=== PATIENT | female | born 1945 | race Caucasian/White ===

== ENCOUNTER → 2018-08-05 12:28 | Outpatient (CLI) | payer MEDICARE, OTHER, SELFPAY ==
[2018-07-24 14:19] VITALS: BMI 30.6
--- NOTE | 2018-08-05 12:34 | CT_ITS ---
STUDY: CT CHEST WITH CONTRAST REASON FOR EXAM: Female, 73 years old. Follow-up scan for endometrial cancer RADIATION DOSAGE (If Supplied By Facility): CTDIvol = ( 16.43 ) mGy, DLP = ( 1703.23 ) mGycm TECHNIQUE: Transaxial imaging was performed following intravenous administration of 100ml ml of Isovue 300 contrast material. Individualized dose optimization techniques were used for this CT. COMPARISON: Previous study of 03/23/2017 FINDINGS: There is a right-sided Mediport with catheter tip in the region of the atrial caval junction. There is a 2.5 mm nodule of the right lower lobe image 50 of series 6, appearing similar to the previous study. There is a stable pleural-based 4 mm nodule of the left lower lobe image 61 of series 6. There is a pleural-based 9 mm nodule of the left lower lobe image 45 series 6. This is new in the interval. No additional or new nodules are evident. There is a small left-sided effusion, new in the interval. There is a trace pericardial effusion, new in the interval. The heart size is within normal limits. There are scattered nonpathologically enlarged mediastinal nodes. The right thyroid lobe is enlarged and contains low-density nodules. These are similar to the previous study. Normal hilar regions. Normal enhanced pulmonary arteries. Normal aorta arch and descending thoracic aorta. There are numerous sclerotic foci involving the visualized thoracolumbar vertebrae and sternum consistent with extensive osseous metastatic disease, representing a new interval finding from the previous study. There are several subcentimeter exophytic foci of the left kidney most likely representing cysts. CT/Chest WITH Contrast IMPRESSION: 1. Right lower lobe and left lower lobe nodules stable in the interval. There is a new pleural-based 9 mm nodule of the left lower lobe. 2. There is a small left-sided effusion, new in the interval. 3. There is a trace pericardial effusion, also new in the interval. 4. There are numerous sclerotic foci involving the visualized thoracolumbar vertebrae and sternum consistent with extensive osseous metastatic disease, representing a new interval finding. 5. Stable exophytic left renal hypodensities consistent with cysts. Electronically Signed: Niko Nicole MD at 21:32 EST , Service support ,
--- NOTE | 2018-08-05 12:34 | CT_ITS ---
STUDY: CT ABDOMEN AND PELVIS WITHOUT CONTRAST REASON FOR EXAM: Female, 73 years old. Endometrial carcinoma RADIATION DOSAGE (If Supplied By Facility): CTDIvol = ( 16.43 ) mGy, DLP = ( 1703.23 ) mGycm TECHNIQUE: Transaxial images were obtained from the dome of the diaphragm to the symphysis pubis without oral contrast, and without intravenous contrast. Sagittal and coronal images were reconstructed. Individualized dose optimization techniques were used for this CT. COMPARISON: 03/23/2017 FINDINGS: There are chronic interstitial fibrotic changes of the lung bases. Small pleural effusions noted with nonspecific pleural thickening. There is a pericardial effusion Normal liver. Normal gallbladder and extrahepatic biliary system. Normal spleen. Normal pancreas. Normal bilateral adrenal glands. Right kidney has been surgically removed. Stable left renal cysts. Normal visualized stomach. Normal small intestine. There are multiple colonic diverticula consistent with diverticulosis. The appendix is visualized and appears normal. Appendix best seen on coronal recon images 56 through 61. Normal abdominal aorta. Normal inferior vena cava. Normal retroperitoneum. Bladder distends normally, there is a worrisome 1.25 x 1.19 cm nodule in the left posterior bladder. There is also noted within the bladder likely from recent catheterization. There is a small umbilical hernia containing fat. Diffuse degenerative changes noted throughout the lumbar spine and pelvis. However, there is also been development of scattered sclerotic areas within all visualized vertebral bodies as well as throughout the pelvis consistent with diffuse osseous metastasis. CT/Abdomen/Pelvis W IV Cont ONLY IMPRESSION: Development of diffuse osseous metastasis since the previous study. Scattered new sclerotic foci noted throughout the vertebral bodies and throughout the pelvis. Worrisome 1.25 x 1.19 cm nodule in the left posterior bladder, this also could represent metastasis. Pericardial effusion Bilateral pleural effusions with nonspecific pleural thickening Chronic interstitial changes in the lung bases Stable periumbilical hernia Colonic diverticulosis Electronically Signed: Lorenzo Tapia MD at 13:42 EST , Service support ,
== END ==
PROVIDERS: Family Provider Internal Medicine; PCP Internal Medicine; Referring Provider Internal Medicine Medical Oncology; Visit Provider Internal Medicine Medical Oncology
DX: Z85.42 Personal history of malignant neoplasm of other parts of uterus (principal)
CPT/HCPCS: 71260; 74177; Q9967

== ENCOUNTER → 2018-08-13 09:41 | Outpatient (CLI) | payer MEDICARE, OTHER, SELFPAY ==
[2018-08-07 14:37] VITALS: BMI 30.3
--- NOTE | 2018-08-13 09:46 | NM_ITS ---
CLINICAL: 73-year-old female with reported history of endometrial carcinoma. WHOLE BODY 99m Tc MDP RADIONUCLIDE BONE SCINTIGRAPHY COMPARISON: CT of the chest, abdomen and pelvis reports 08/05/2018 FINDINGS: Following the intravenous administration of 25.8 mCi of 99m Tc MDP, whole body bone images reveal: 1. Heterogeneous multifocal increased radiopharmaceutical concentration is disseminated throughout the appendicular and axial skeletal structures, too many to individually articulate to include multiple bilateral ribs, thoracic and lumbar vertebra, the bilateral hemipelvis, the left femoral head, the right and left proximal-distal humeral and femoral diaphyses. 2. Facilitated uptake is otherwise noted in the patellofemoral compartments of both knees, bilateral ankles, the right-left midfoot, right forefoot, elbows bilaterally and sternoclavicular compartments of both shoulders. 3. The remaining skeletal structures are scintigraphically unremarkable with left renal image and urinary bladder activity identified. NM/Bone Scan Whole Body IMPRESSION: 1. The multiple foci of increased radiopharmaceutical concentration defined in the appendicular and axial skeletal structures is commensurate with osteoblastic turnover attributed to skeletal metastatic disease. 2. Degenerative arthritis is otherwise noted in the bilateral knee and ankle articulations, midfoot bilaterally, right forefoot, bilateral shoulders and elbows. Electronically Signed: Handy Collier DO at 23:25 EST Tel , Service support ,
--- OUTSIDE RECORDS SUMMARY | 2018-10-15 11:17 | XMS RPT_ITS ---
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 Result Comment: The drugs N-Acetylcysteine and Metamizole may falsely depress this assay. Serum Triglycerides Reference Interval Normal <150 mg/dL Borderline high 150 - 199 mg/dL High 200 - 499 mg/dL Very High > or = 500 mg/dL LAB L501.6400 mg/dL Low HDL 33 Result Comment: The drugs N-Acetylcysteine and Metamizole may falsely depress this assay. Reference Range HDL <40 mg/dL Low HDL Cholesterol HDL >or= 60 mg/dL High HDL Cholesterol LAB L501.6500 0-130 mg/dL Normal LDL 104 LAB L501.6600 5-40 mg/dL Normal VLDL 40 Performed By: #### L500.4100 #### [facility] [place], [address] CBC W/DIFF, AUTOMATED Collected: 04/10/2018 Status: F Source: [place] 1:58 PM [facility] REPOSITORY Order Comment: Reason for Laboratory Test . TYPE CODE TESTS RESULT OUT OF RANGE REFERENCE UNITS LAB L100.1000 4.4-11.0 K/mm3 Normal WBC 7.6 LAB L100.1200 4.2-5.4 M/mm3 Low RBC 4.10 LAB L100.1300 12.0-15.0 g/dl Low HGB 11.4 LAB L100.1400 37-47 % Low HCT 36.2 LAB L100.1500 81-99 fL Normal MCV 88.3 LAB L100.1600 27.0-32.0 pg Normal MCH 27.8 LAB L100.1700 32-36 g/gl Low MCHC 31.5 LAB L100.1810 11.6-14.6 % High RDW CV 14.8 LAB L100.1820 35.1-43.9 fl High RDW SD 48.0 LAB L100.1900 150-450 K/mm3 Normal PLT 216 LAB L100.2000 6.2-12.0 fl Normal MPV 11.0 LAB L100.2100 47-70 % High NEUT% 71.9 LAB L100.2200 19-41 % Low LY% 15.0 LAB L100.2300 0-10 % Normal MONO% 9.6 LAB L100.2400 0-5 % Normal EO% 3.3 LAB L100.2500 0-1 % Normal BASO% 0.1 LAB L100.2550 0.0-0.9 % Normal IM GRAN % 0.100 Result Comment: IG% - Immature Granulocytes (promyelocytes, myelocytes and metamyelocytes) > 1% indicates that a LEFT SHIFT is Present. LAB L100.2620 2.0-7.7 X10 3/uL Normal Absolute Neut 5.4 LAB L100.2720 0.83-4.51 X10 3/ul Normal Absolute Lymph 1.14 Performed By: #### L100.0100 #### [facility] [address] [facility]. [place], [place], [id number] #### L3100.5000 #### [facility] (refer to report for specific site) refer to report for address and phone number CANCER ANTIGEN 125 Collected: 04/10/2018 Status: F Source: [place] 1:58 PM [facility] REPOSITORY Order Comment: Reason for Laboratory Test . TYPE CODE TESTS RESULT OUT OF RANGE REFERENCE UNITS LAB L3100.5000 0.0-38.1 U/mL Normal CA125 37.4 2303 Result Comment: [employer] ECLIA methodology Performed at: [facility] [id number] Farm Appraiser: Toney Conway PhD, Phone: [phone] Performed By: #### L100.0100 #### [facility] [address] [facility] [place], [place], [id number] #### L3100.5000 #### [facility] (refer to report for specific site) refer to report for address and phone number COMPREHENSIVE METABOLIC Collected: 04/10/2018 Status: F Source: [facility] 1:58 PM [facility] REPOSITORY Order Comment: Reason for Laboratory Test . TYPE CODE TESTS RESULT OUT OF RANGE REFERENCE UNITS LAB L501.0100 74-106 mg/dL Normal GLU 85 Result Comment: Please note revised GLUCOSE reference range effective 2017. LAB L501.1000 7-18 mg/dL High BUN 19 LAB L501.1100 0.55-1.02 mg/dL High CREAT,SERUM 1.04 Result Comment: The validity of the calculated GFR AND GFRAA in patients over 70 years has not been determined. Clinical correlation is essential. LAB L501.1110 >60 mL/min Low EST GFR 55 Result Comment: Non- GFR Calc LAB L501.1115 >60 mL/min Normal EST GFR - AA 66 Result Comment: GFR Calc LAB L501.1255 ml/min Normal Estimated CRCL 36.97 LAB L501.1300 10-20 RATIO Normal BUN/CRE 18.3 LAB L501.1500 6.4-8. g/dL Normal 2 T PROT 7.0 LAB L501.1800 3.2-5. g/dL Normal 0 ALB 3.7 LAB L501.1950 2.2-4. g/dL Normal 2 GLOB 3.3 LAB L501.2000 0.9-2. RATIO Normal 4 A/G 1.1 LAB L501.2200 8.5-10 mg/dL Normal .1 CA 8.6 LAB L501.4100 15-37 U/L Low AST 14 LAB L501.4305 45-117 U/L Normal ALK P 71 LAB L501.4405 13-56 U/L Normal ALT 19 LAB L501.4600 0.20-1 mg/dL Normal .00 T BILI 0.70 LAB L501.5300 136-14 mmol/L Normal 5 NA 139 LAB L501.5600 3.5-5. mmol/L Normal 1 K 3.8 LAB L501.5900 98-107 mmol/L Normal CL 104 LAB L501.6100 21.0-3 mmol/L Normal 2.0 CO2 25.0 LAB L501.6200 5-15 Normal GAP 10 Performed By: #### L500.4050 #### [facility] [address] [place], [address] PROGRESS Observed: 02/25/2018 Status: COMPLETED Source: [place] 4:51 PM [facility] REPOSITORY HNO ID: [id number] Author: Anderson Wilson Service: (none) Author Type: Physician Type: Progress Notes Filed: 02/25/2018 4:53 PM Note Text: Unfortunately it has been extremely difficult convincing this patient that even her past home readings have been above goal. Will review her home readings when I return to the office, however, I still strongly encourage her to reconsider taking the medications as ordered. PROGRESS Observed: 02/25/2018 Status: COMPLETED Source: [place] 10:47 AM [facility] REPOSITORY HNO ID: [id number] Author: Lee Mckeon Service: (none) Author Type: Certified Cytotechnologist Type: Progress Notes Filed: 02/25/2018 11:03 AM Note Text: Patient here for BP check. Last BP 158/90 at 01/28/18 office visit. At that time Dr. Wilson started patient on Norvasc 2.5 mg tablet daily to take in addition to her HCTZ 25 mg. Patient states she never started the Norvasc 2.5 mg because she did not like the side effects she read. Patient's BP today 148/96, advised patient she would need so sit for 10 minutes and it would be rechecked. Patient states she is happy with that BP and states it won't go lower because she is nervous. Recheck after 10 minutes BP was 158/90, requested patient schedule NV for 2 week BP check as it is still above goal and patient refused stating she gets sick every time she has to come to the doctor and she does not want to keep coming for BP checks. Home BP readings placed on Dr. Wilson's desk for review. Lee Mckeon CMA CNNURSE Observed: 02/25/2018 Status: COMPLETED Source: [place] 10:40 AM [facility] REPOSITORY Nurse Visit (AGINTMLW) KYLAH WILCOX ([id number]) 1945 F Date Time Provider Department 02/25/18 10:40 AM NURSE SHARON KILPATRICK AGINTMLW During your visit today, we recorded the following information about you: Pulse Blood pressure 99/minute 158/90 Lee Mckeon CMA 02/25/2018 11:03 AM Signed Patient here for BP check. Last BP 158/90 at 01/28/18 office visit. At that time Dr. Wilson started patient on Norvasc 2.5 mg tablet daily to take in addition to her HCTZ 25 mg. Patient states she never started the Norvasc 2.5 mg because she did not like the side effects she read. Patient's BP today 148/96, advised patient she would need so sit for 10 minutes and it would be rechecked. Patient states she is happy with that BP and states it won't go lower because she is nervous. Recheck after 10 minutes BP was 158/90, requested patient schedule NV for 2 week BP check as it is still above goal and patient refused stating she gets sick every time she has to come to the doctor and she does not want to keep coming for BP checks. Home BP readings placed on Dr. Wilson's desk for review. Lee Mckeon CMA Referring Provider: SELF [200] Allergies As of Date: 02/25/2018 Noted Allergy Reaction DIPHENHYDRAMINE 12/15/2016 14 - Other: See Comments Comments: Dizziness NOVACAINE (PROCAINE) 04/25/2016 10 - Anaphylaxis 14 - Other: See Comments Date Reviewed: 01/28/2018 Reviewed by: Anderson Wilson - Fully Assessed Reason for Visit: Blood Pressure Check [195] Primary Visit Diagnosis:Essential hypertension [I10] Prescriptions as of 02/25/2018 Sig: HYDROCHLOROTHIAZIDE 25 MG TAB* TAKE 1 TABLET BY MOUTH DAILY ERYTHROMYCIN 5 MG/GRAM (0.5 %* PREDNISOLONE ACETATE 1 % EYE * ACYCLOVIR 800 MG TABLET AMLODIPINE 2.5 MG TABLET Take 1 tablet by mouth once d* OTC PRODUCT Calm plus sl COENZYME Q10 100 MG CAPSULE Take 100 mg by mouth once raven* GARLIC 100 MG TABLET Take by mouth. GRAPE SEED EXTRACT 25 MG CAPS* Take by mouth. OTC PRODUCT L-Theanine VITAMIN B COMPLEX-100 ORAL Take by mouth. CHOLECALCIFEROL (VITAMIN D3) * Take by mouth. FLAXSEED OIL Problem List As Of Date 02/25/2018 Noted Resolved Obesity, Class I, BMI 30-34.9 [E66.9] INVALID FOR* Essential hypertension [I10] INVALID FOR* Level of Service: EST PATIENT VISIT LEVEL 1 [24267] LOS history recorded Follow-up and Disposition History Recorded Encounter Status:Closed by LEE MCKEON on 02/25/18 COMPREHENSIVE PANEL Collected: 02/21/2018 Status: F Source: [facility] 11:06 AM [facility] REPOSITORY TYPE CODE TESTS RESULT OUT OF REFERENCE UNITS RANGE LAB DATA SERVICES DEVELOPER(LOINC) 136-145 mEq/L Low Sodium Blood 132 LAB LK(LOINC) 3.5-5.1 mEq/L Low Potassium Blood 3.2 LAB LCL(LOINC) 98-107 mEq/L Chloride Blood 100 LAB LCO2(LOINC 21-32 mEq/L ) CO2 Blood 31 LAB LGLU(LOINC 70-99 mg/dL ) Glucose High Blood 105 LAB LBUN(LOINC 7-25 mg/dL ) BUN Blood 19 LAB LCREA(LOIN 0.51-0.95 mg/dL C) Creatinine High Blood 1.07 LAB LCA(LOINC) 8.5-10.1 mg/dL Calcium Blood 9.3 LAB LALB(LOINC 3.4-5.0 g/dL ) Albumin Blood 3.7 LAB LTP(LOINC) 6.4-8.2 g/dL Total Protein 7.2 LAB LAST(LOINC 15-37 U/L ) AST-SGOT Blood 20 LAB LALT(LOINC 14-63 U/L ) ALT-SGPT Blood 28 LAB LALKP(LOIN 46-116 U/L C) Alk Phosphatase 73 LAB LBILT(LOIN 0.2-1.0 mg/dL C) Total Bilirubin 0.7 LAB LANGP(LOIN 8-20 C) Low Anion Gap 4 LAB LBNCR(LOIN 10-20 C) BUN/Creatinine 18 Ratio Performed By: #### LP14 #### [place] [address] MDRD EGFR Collected: 02/21/2018 Status: F Source: [facility] 11:06 AM [facility] REPOSITORY TYPE CODE TESTS RESULT OUT OF RANGE REFERENCE UNITS LAB LGFRF(LOINC >60mL/min/1.73m ) 2 eGFR 53.13 Result Comment: If the patient is , multiply the result by 1.210. Performed By: #### LGFR #### [facility] [address] [place] [address] OBSOLETE Observed: 02/21/2018 Status: COMPLETED Source: [place] 12:00 AM [facility] REPOSITORY Refill (AGINTMLW) KYLAH WILCOX ([id number]) 1945 F Date Time Provider Department 02/21/18 ANDERSON WILSON AGINTMLW During your visit today, we recorded the following information about you: Aisha Walsh, MOTORBOAT MECHANIC HELPER 02/21/2018 9:56 AM Signed Called pt let her know that she needs to get her lab work done she stated that shes going to get that done Last OV 01/28/18 Pharmacy calls in requesting the following refill(s): Pending Prescriptions Disp Refills HYDROCHLOROTHIAZIDE 25 MG TABLET 30 tablet 1 Sig: TAKE 1 TABLET BY MOUTH DAILY BABAK: Yes Aisha Walsh CMA Allergies As of Date: 02/21/2018 Noted Allergy Reaction DIPHENHYDRAMINE 12/15/2016 14 - Other: See Comments Comments: Dizziness NOVACAINE (PROCAINE) 04/25/2016 10 - Anaphylaxis 14 - Other: See Comments Date Reviewed: 01/28/2018 Reviewed by: Anderson Wilson - Fully Assessed Reason for Visit: Refill Request [94] Visit Diagnosis:Essential hypertension [I10] Order(s):hydroCHLOROthiazide (HYDRODIURIL, ESIDRIX) 25 mg tabletTAKE 1 TABLET BY MOUTH DAILYDisp: 30 tabletRfl: 1 Prescriptions as of 02/21/2018 Sig: HYDROCHLOROTHIAZIDE 25 MG TAB* TAKE 1 TABLET BY MOUTH DAILY ERYTHROMYCIN 5 MG/GRAM (0.5 %* PREDNISOLONE ACETATE 1 % EYE * ACYCLOVIR 800 MG TABLET AMLODIPINE 2.5 MG TABLET Take 1 tablet by mouth once d* OTC PRODUCT Calm plus sl COENZYME Q10 100 MG CAPSULE Take 100 mg by mouth once raven* GARLIC 100 MG TABLET Take by mouth. GRAPE SEED EXTRACT 25 MG CAPS* Take by mouth. OTC PRODUCT L-Theanine VITAMIN B COMPLEX-100 ORAL Take by mouth. CHOLECALCIFEROL (VITAMIN D3) * Take by mouth. FLAXSEED OIL Problem List As Of Date 02/21/2018 Noted Resolved Obesity, Class I, BMI 30-34.9 [E66.9] INVALID FOR* Essential hypertension [I10] INVALID FOR* Prescriptions ordered this encounter Disp Refills Start End HYDROCHLOROTHIAZIDE 25 MG TABLET 30 t* 1 02/21/2018 Sig: TAKE 1 TABLET BY MOUTH DAILY Medications Discontinued During This Encounter hydroCHLOROthiazide (HYDRODIURIL, ES* 30 t* 1 12/24/2017 02/21/2018 Route: ORAL Sig: Take 1 tablet by mouth once daily. Disc: Reason for discontinue is not on file. Encounter Status:Closed by ANDERSON WILSON MD on 02/21/18 PROGRESS Observed: 01/28/2018 Status: COMPLETED Source: [place] 10:20 AM [facility] REPOSITORY O ID: [id number] Author: Anderson Wilson Service: (none) Author Type: Physician Type: Progress Notes Filed: 01/28/2018 12:10 PM Note Text: Subjective The patient is here for a follow up for her blood pressure. The patient reports she watches her diet and doesn't add salt to her diet. The patient reports she walks on a treadmill and uses a stationary bike. The patient checks her blood pressure 2-3 times a day and has provided her home readings for review. She has her home cuff with her to compare her readings. She reports just putting the blood pressure cuff on makes her blood pressure go up. The patient is just taking her HCTZ. She did not start taking the lisinopril as previously ordered stating she sometimes has readings in the 120/70 range. She does not want to take any medication that has side effects and doesn't feel as though she needs any medications. The patient reports that she read that lowering her blood pressure has no effect on the risk of stroke or heart disease so she doesn't see why she needs to take anything. The history is provided by the patient. Hypertension This is a chronic problem. The current episode started more than 1 year ago. The problem is uncontrolled. Associated symptoms include blurred vision (in left eye) and palpitations (occasional). Pertinent negatives include no chest pain, headaches or shortness of breath. Risk factors for coronary artery disease include obesity and post-menopausal state. Past treatments include diuretics. The current treatment provides mild improvement. Compliance problems include medication side effects. There is no history of CAD/AZ or CVA. There is no history of a thyroid problem. ALLERGIES Allergen Reactions - Diphenhydramine Other: See Comments Dizziness - Novacaine [Procaine] Anaphylaxis, Other: See Comments Current Outpatient Prescriptions: OTC PRODUCT Calm plus sl Disp: Rfl: coenzyme Q10 (COENZYME Q-10) 100 mg cap capsule Take 100 mg by mouth once daily. Disp: Rfl: Garlic 100 mg tab Take by mouth. Disp: Rfl: Grape Seed Extract (GRAPE SEED) 25 mg cap Take by mouth. Disp: Rfl: OTC PRODUCT L-Theanine Disp: Rfl: VITAMIN B COMPLEX-100 ORAL Take by mouth. Disp: Rfl: Cholecalciferol, Vitamin D3, (VITAMIN D-3) 2,000 unit cap Take by mouth. Disp: Rfl: Flaxseed Oil oil Disp: Rfl: hydroCHLOROthiazide (HYDRODIURIL, ESIDRIX) 25 mg tablet Take 1 tablet by mouth once daily. Disp: 30 tablet Rfl: 1 erythromycin ophthalmic ointment Disp: Rfl: prednisoLONE acetate (PRED FORTE, ECONOPRED PLUS) 1 % ophthalmic suspension Disp: Rfl: acyclovir (ZOVIRAX) 800 mg tablet Disp: Rfl: zoster vaccine, recombinant, adjuvanted, (SHINGRIX) 50 mcg/0.5 mL injection Inject 0.5 mL intramuscularly one time only for 1 dose. Disp: 0.5 mL Rfl: 0 amLODIPine (NORVASC) 2.5 mg tablet Take 1 tablet by mouth once daily. Disp: 30 tablet Rfl: 1 No current facility-administered medications for this visit. 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 Family History Problem Relation Age of Onset - Cancer Mother leukemia - Hypertension Mother - Cancer Sister uterine - Cancer Maternal Aunt colon Reviewed past medical and surgical history. BP 158/90 Temp 36.4 ?C (97.6 ?F) (Oral) Resp 18 Ht 154.9 cm (5' 1) Wt 74.8 kg (165 lb) SpO2 92% BMI 31.18 kg/m? Review of Systems Constitutional: Negative for fever and weight loss. 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 Negative for congestion and sore throat. Eyes: Positive for blurred vision (in left eye). Respiratory: Negative for cough and shortness of breath. Cardiovascular: Positive for palpitations (occasional). Negative for chest pain and leg swelling. Gastrointestinal: Negative for abdominal pain, constipation, diarrhea, nausea and vomiting. Genitourinary: Negative for dysuria. Musculoskeletal: Negative for falls. Skin: Negative for rash. Neurological: Positive for tingling (in fingers and feet, from chemotherapy). Negative for dizziness, loss of consciousness, weakness and headaches. Psychiatric/Behavioral: Positive for depression. Negative for suicidal ideas. The patient is nervous/anxious. Objective Physical Exam Constitutional: She is oriented to person, place, and time and well-developed, well-nourished, and in no distress. Vital signs are normal. She does not have a sickly appearance. No distress. HENT: Head: Normocephalic and atraumatic. Mouth/Throat: Oropharynx is clear and moist and mucous membranes are normal. Eyes: Conjunctivae are normal. Pupils are equal, round, and reactive to light. Cardiovascular: Normal rate, regular rhythm and normal heart sounds. No murmur heard. Pulmonary/Chest: Effort normal and breath sounds normal. No respiratory distress. She has no wheezes. Abdominal: Soft. Bowel sounds are normal. There is no tenderness. Musculoskeletal: She exhibits no edema. Neurological: She is alert and oriented to person, place, and time. Skin: Skin is warm and dry. No rash noted. She is not diaphoretic. Psychiatric: Mood normal. Tearful at times speaking of her mother's past medical complications Nursing note and vitals reviewed. ASSESSMENT/PLAN: 1. Essential hypertension - ICD9: 401.9, ICD10: I10 (primary diagnosis) - poor control - Continue current medication(s) - Add amlodipine (Norvasc) - Encouraged dietary sodium restriction/DASH diet - Recommended regular aerobic exercise. - Recommend home blood pressure monitoring, to bring results in on next visit - Follow up in 1 month for BP recheck. - Goal of BP <130/80 - AMLODIPINE 2.5 MG TABLET Reviewed the patient's home readings. They are completely variable with readings from 119/70 and other readings at 159/93. Her average readings, however, appear to be in the high 130-140/70-80 range. Her home cuff appears to be reading slightly higher, but similar. Her blood pressure did improve with recheck, but remains above goal. Discussed extensively with the patient that her goal blood pressure is <130/90 and although her home readings are improved, she is still having some above normal readings. Previously ordered the patient lisinopril, but she is unwilling to take it stating she has concerns about it affecting her kidney. Due to her concern with using lisinopril, will start her on a small dose of norvasc instead. Explained that although better blood pressure control doesn't rule out the possibility of heart disease or stroke, it does lessen the risk. Explained that I cannot force her to take any medication, however, this was my recommendation and she voiced understanding. The patient was encouraged to continue monitoring her blood pressure at home and to call if she had any problems with the new medication and she voiced understanding. The patient inquired about weight loss to help with her blood pressure. I explained that weight loss would be great and if she does lose weight, we may be able to consider coming off one or both medications, however, until then, I would recommend taking the medications as prescribed. I explained that there are no medications that do not have any side effects at all, but side effects are variable with each person. She was again instructed to call if she had any problems with the new medication and she agreed. 2. Screening for cardiovascular condition - ICD9: V81.2, ICD10: Z13.6 Patient due for a lipid panel which I will order. She reports she had other labs done recently by her blacking wheel tender. Will get those records for review. - LIPID PANEL BASIC 3. Immunization due - ICD9: V05.9, ICD10: Z23 - VARICELLA-ZOSTER GLYCOE VACC-AS01B ADJ(PF) 50 MCG/0.5 ML IM SUSP, KIT Provided the patient a prescription for the shingles vaccine which she will complete after her current shingles in her eye is resolved. Patient is seeing ophthalmology and follows up with them on . The patient is here for a follow up. She had multiple questions and concerns related to her blood pressure. While I do agree that some of her blood pressure appears to be related to white coat hypertension, it still appears to be higher than goal at home. Plan as above. The patient had concerns about her and I recommended that he call or schedule an appointment to discuss them himself since this was an appointment for her. She voiced understanding. Will have the patient return in 4 weeks for a nursing blood pressure check. The patient also appears to have some problems with anxiety. Will schedule her a follow up with me to discuss this further. Return in about 4 weeks (around 02/25/2018) for nursing BP check. Anderson Wilson MD CNOV Observed: 01/28/2018 Status: COMPLETED Source: [place] [address]:00 AM [facility] REPOSITORY Office Visit (AGINTMLW) KYLAH WILCOX ([id number]) 1945 F Date Time Provider Department 01/28/18 10:00 AM ANDERSON WILSON AGINTMLW During your visit today, we recorded the following information about you: Temperature Respiration Blood pressure Weight 97.6 degrees 18/minute 158/90 74.8 kg Height 1.549 m Anderson Wilson MD 01/28/2018 12:10 PM Signed Subjective The patient is here for a follow up for her blood pressure. The patient reports she watches her diet and doesn't add salt to her diet. The patient reports she walks on a treadmill and uses a stationary bike. The patient checks her blood pressure 2-3 times a day and has provided her home readings for review. She has her home cuff with her to compare her readings. She reports just putting the blood pressure cuff on makes her blood pressure go up. The patient is just taking her HCTZ. She did not start taking the lisinopril as previously ordered stating she sometimes has readings in the 120/70 range. She does not want to take any medication that has side effects and doesn't feel as though she needs any medications. The patient reports that she read that lowering her blood pressure has no effect on the risk of stroke or heart disease so she doesn't see why she needs to take anything. The history is provided by the patient. Hypertension This is a chronic problem. The current episode started more than 1 year ago. The problem is uncontrolled. Associated symptoms include blurred vision (in left eye) and palpitations (occasional). Pertinent negatives include no chest pain, headaches or shortness of breath. Risk factors for coronary artery disease include obesity and post-menopausal state. Past treatments include diuretics. The current treatment provides mild improvement. Compliance problems include medication side effects. There is no history of CAD/AZ or CVA. There is no history of a thyroid problem. ALLERGIES Allergen Reactions - Diphenhydramine Other: See Comments Dizziness - Novacaine [Procaine] Anaphylaxis, Other: See Comments Current Outpatient Prescriptions: OTC PRODUCT Calm plus sl Disp: Rfl: coenzyme Q10 (COENZYME Q-10) 100 mg cap capsule Take 100 mg by mouth once daily. Disp: Rfl: Garlic 100 mg tab Take by mouth. Disp: Rfl: Grape Seed Extract (GRAPE SEED) 25 mg cap Take by mouth. Disp: Rfl: OTC PRODUCT L-Theanine Disp: Rfl: VITAMIN B COMPLEX-100 ORAL Take by mouth. Disp: Rfl: Cholecalciferol, Vitamin D3, (VITAMIN D-3) 2,000 unit cap Take by mouth. Disp: Rfl: Flaxseed Oil oil Disp: Rfl: hydroCHLOROthiazide (HYDRODIURIL, ESIDRIX) 25 mg tablet Take 1 tablet by mouth once daily. Disp: 30 tablet Rfl: 1 erythromycin ophthalmic ointment Disp: Rfl: prednisoLONE acetate (PRED FORTE, ECONOPRED PLUS) 1 % ophthalmic suspension Disp: Rfl: acyclovir (ZOVIRAX) 800 mg tablet Disp: Rfl: zoster vaccine, recombinant, adjuvanted, (SHINGRIX) 50 mcg/0.5 mL injection Inject 0.5 mL intramuscularly one time only for 1 dose. Disp: 0.5 mL Rfl: 0 amLODIPine (NORVASC) 2.5 mg tablet Take 1 tablet by mouth once daily. Disp: 30 tablet Rfl: 1 No current facility-administered medications for this visit. 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 Family History Problem Relation Age of Onset - Cancer Mother leukemia - Hypertension Mother - Cancer Sister uterine - Cancer Maternal Aunt colon Reviewed past medical and surgical history. BP 158/90 Temp 36.4 ?C (97.6 ?F) (Oral) Resp 18 Ht 154.9 cm (5' 1) Wt 74.8 kg (165 lb) SpO2 92% BMI 31.18 kg/m? Review of Systems Constitutional: Negative for fever and weight loss. 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 Negative for congestion and sore throat. Eyes: Positive for blurred vision (in left eye). Respiratory: Negative for cough and shortness of breath. Cardiovascular: Positive for palpitations (occasional). Negative for chest pain and leg swelling. Gastrointestinal: Negative for abdominal pain, constipation, diarrhea, nausea and vomiting. Genitourinary: Negative for dysuria. Musculoskeletal: Negative for falls. Skin: Negative for rash. Neurological: Positive for tingling (in fingers and feet, from chemotherapy). Negative for dizziness, loss of consciousness, weakness and headaches. Psychiatric/Behavioral: Positive for depression. Negative for suicidal ideas. The patient is nervous/anxious. Objective Physical Exam Constitutional: She is oriented to person, place, and time and well-developed, well-nourished, and in no distress. Vital signs are normal. She does not have a sickly appearance. No distress. HENT: Head: Normocephalic and atraumatic. Mouth/Throat: Oropharynx is clear and moist and mucous membranes are normal. Eyes: Conjunctivae are normal. Pupils are equal, round, and reactive to light. Cardiovascular: Normal rate, regular rhythm and normal heart sounds. No murmur heard. Pulmonary/Chest: Effort normal and breath sounds normal. No respiratory distress. She has no wheezes. Abdominal: Soft. Bowel sounds are normal. There is no tenderness. Musculoskeletal: She exhibits no edema. Neurological: She is alert and oriented to person, place, and time. Skin: Skin is warm and dry. No rash noted. She is not diaphoretic. Psychiatric: Mood normal. Tearful at times speaking of her mother's past medical complications Nursing note and vitals reviewed. ASSESSMENT/PLAN: 1. Essential hypertension - ICD9: 401.9, ICD10: I10 (primary diagnosis) - poor control - Continue current medication(s) - Add amlodipine (Norvasc) - Encouraged dietary sodium restriction/DASH diet - Recommended regular aerobic exercise. - Recommend home blood pressure monitoring, to bring results in on next visit - Follow up in 1 month for BP recheck. - Goal of BP <130/80 - AMLODIPINE 2.5 MG TABLET Reviewed the patient's home readings. They are completely variable with readings from 119/70 and other readings at 159/93. Her average readings, however, appear to be in the high 130-140/70-80 range. Her home cuff appears to be reading slightly higher, but similar. Her blood pressure did improve with recheck, but remains above goal. Discussed extensively with the patient that her goal blood pressure is <130/90 and although her home readings are improved, she is still having some above normal readings. Previously ordered the patient lisinopril, but she is unwilling to take it stating she has concerns about it affecting her kidney. Due to her concern with using lisinopril, will start her on a small dose of norvasc instead. Explained that although better blood pressure control doesn't rule out the possibility of heart disease or stroke, it does lessen the risk. Explained that I cannot force her to take any medication, however, this was my recommendation and she voiced understanding. The patient was encouraged to continue monitoring her blood pressure at home and to call if she had any problems with the new medication and she voiced understanding. The patient inquired about weight loss to help with her blood pressure. I explained that weight loss would be great and if she does lose weight, we may be able to consider coming off one or both medications, however, until then, I would recommend taking the medications as prescribed. I explained that there are no medications that do not have any side effects at all, but side effects are variable with each person. She was again instructed to call if she had any problems with the new medication and she agreed. 2. Screening for cardiovascular condition - ICD9: V81.2, ICD10: Z13.6 Patient due for a lipid panel which I will order. She reports she had other labs done recently by her blacking wheel tender. Will get those records for review. - LIPID PANEL BASIC 3. Immunization due - ICD9: V05.9, ICD10: Z23 - VARICELLA-ZOSTER GLYCOE VACC-AS01B ADJ(PF) 50 MCG/0.5 ML IM SUSP, KIT Provided the patient a prescription for the shingles vaccine which she will complete after her current shingles in her eye is resolved. Patient is seeing ophthalmology and follows up with them on . The patient is here for a follow up. She had multiple questions and concerns related to her blood pressure. While I do agree that some of her blood pressure appears to be related to white coat hypertension, it still appears to be higher than goal at home. Plan as above. The patient had concerns about her and I recommended that he call or schedule an appointment to discuss them himself since this was an appointment for her. She voiced understanding. Will have the patient return in 4 weeks for a nursing blood pressure check. The patient also appears to have some problems with anxiety. Will schedule her a follow up with me to discuss this further. Return in about 4 weeks (around 02/25/2018) for nursing BP check. MD Anderson Platt MD 01/28/2018 10:55 AM Signed Continue to monitor blood pressure at home. Call with any concerns or questions about new medication. Goal blood pressure is <130/90. Referring Provider: ANDERSON WILSON [[id number]] Allergies As of Date: 01/28/2018 Noted Allergy Reaction DIPHENHYDRAMINE 12/15/2016 14 - Other: See Comments Comments: Dizziness NOVACAINE (PROCAINE) 04/25/2016 10 - Anaphylaxis 14 - Other: See Comments Date Reviewed: 01/28/2018 Reviewed by: Anderson Wilson - Fully Assessed Reason for Visit: Hypertension [168] Primary Visit Diagnosis:Essential hypertension [I10] Other Visit Diagnoses:Screening for cardiovascular condition [Z13.6] Immunization due [Z23] Order(s):zoster vaccine, recombinant, adjuvanted, (SHINGRIX) 50 mcg/0.5 mL injectionInject 0.5 mL intramuscularly one time only for 1 dose.Disp: 0.5 mLRfl: 0 LIPID PANEL BASIC [SQLIPB] Order #: [id number] FUTURE amLODIPine (NORVASC) 2.5 mg tabletTake 1 tablet by mouth once daily.Disp: 30 tabletRfl: 1 Prescriptions as of 01/28/2018 Sig: OTC PRODUCT Calm plus sl COENZYME Q10 100 MG CAPSULE Take 100 mg by mouth once raven* GARLIC 100 MG TABLET Take by mouth. GRAPE SEED EXTRACT 25 MG CAPS* Take by mouth. OTC PRODUCT L-Theanine VITAMIN B COMPLEX-100 ORAL Take by mouth. CHOLECALCIFEROL (VITAMIN D3) * Take by mouth. FLAXSEED OIL HYDROCHLOROTHIAZIDE 25 MG TAB* Take 1 tablet by mouth once d* ERYTHROMYCIN 5 MG/GRAM (0.5 %* PREDNISOLONE ACETATE 1 % EYE * ACYCLOVIR 800 MG TABLET VARICELLA-ZOSTER GLYCOE VACC-* Inject 0.5 mL intramuscularly* AMLODIPINE 2.5 MG TABLET Take 1 tablet by mouth once d* Problem List As Of Date 01/28/2018 Noted Resolved Obesity, Class I, BMI 30-34.9 [E66.9] INVALID FOR* Essential hypertension [I10] INVALID FOR* Other instructions from your clinician: Continue to monitor blood pressure at home. Call with any concerns or questions about new medication. Goal blood pressure is <130/90. Prescriptions ordered this encounter Disp Refills Start End VARICELLA-ZOSTER GLYCOE VACC-AS01B A* 0.5 * 0 01/28/2018 01/28/2018 Class: Print RX Route: INTRAMUSCULA Sig: Inject 0.5 mL intramuscularly one time only for 1 dose. AMLODIPINE 2.5 MG TABLET 30 t* 1 01/28/2018 Route: ORAL Sig: Take 1 tablet by mouth once daily. Medications Discontinued During This Encounter lisinopril (ZESTRIL, PRINIVIL) 5 mg * 30 t* 1 01/07/2018 01/28/2018 Route: ORAL Sig: Take 1 tablet by mouth once daily. Disc: Changing Therapy/Dosage Form Level of Service: [facility] PATIENT VISIT LEVEL 4 [[id number]] Disposition: Return in about 4 weeks (around 02/25/2018) for nursing BP check. Follow-up and Disposition History Recorded Encounter Status:Closed by ANDERSON WILSON MD on 01/28/18 PROGRESS Observed: 01/07/2018 Status: COMPLETED Source: [place] 2:38 PM [facility] REPOSITORY HNO ID: [id number] Author: Lee Mckeon Service: (none) Author Type: Certified Cytotechnologist Type: Progress Notes Filed: 01/07/2018 2:39 PM Note Text: Left message informing patient of Dr. Wilson's directions to not start the Lisinopril and to continue monitoring BP at home and bring readings and BP cuff to 01/28/18 office visit to review. Lee Mckeon CMA PROGRESS Observed: 01/07/2018 Status: COMPLETED Source: [place] 1:55 PM [facility] REPOSITORY HNO ID: [id number] Author: Anderson Wilson Service: (none) Author Type: Physician Type: Progress Notes Filed: 01/07/2018 1:56 PM Note Text: I agree that a reading of 127/77 is a good reading, however, I need to confirm that her cuff reads the same as our readings. I would like her to return in 2-3 weeks with her cuff for a repeat check. Have her continue to monitor her blood pressure for now and bring her readings in at that time. For now, will hold off on lisinopril. Thanks. PROGRESS Observed: 01/07/2018 Status: COMPLETED Source: [place] 1:07 PM [facility] REPOSITORY HNO ID: [id number] [facility]: [facility] [place] Service: (none) Author Type: Certified Cytotechnologist Type: Progress Notes Filed: 01/07/2018 1:09 PM Note Text: Patient informed and states she came home after her nurse visit and checked her BP and it was 124/77. Patient states she has had her BP machine checked at the oncologists office. Patient does not want to start the Lisinopril 5 mg, she thinks that 124/77 is a good BP. Patient states her BP will always be high in the office because she gets nervous. Please advise. Lee Mckeon [facility] PROGRESS Observed: 01/07/2018 Status: COMPLETED Source: [place] 10:30 AM [facility] REPOSITORY HNO ID: [id number] Author: Anderson Wilson Service: (none) Author Type: Physician Type: Progress Notes Filed: 01/07/2018 10:32 AM Note Text: Will start the patient on a low dose of lisinopril. Please have her come back in 3 weeks for a BP recheck. Have her bring her cuff in at that time for comparison. Thanks. CNNURSE Observed: 01/07/2018 Status: COMPLETED Source: [place] 9:45 AM [facility] REPOSITORY Nurse Visit (AGINTMLW) KYLAH WILCOX ([id number]) 1945 F Date Time Provider Department 01/07/18 9:45 AM NURSE SHARON PAEZINTMLW During your visit today, we recorded the following information about you: Temperature Respiration Blood pressure 98.2 degrees 18/minute 160/80 Kalie Cordero LPN 01/07/2018 10:01 AM Signed Pt. Here for Nurse Visit Bp recheck. Bp at OV 12/24/17 190/108 HCTZ 25 mg. Started, Pt. Reports she id sensitive to a lot of medications. BP today 170/80 recheck in 5 minutes 160/70 Pt.reports Bp was 140/74 at home this morning. Keeps a log, did not bring in. Please advise of recommendations./SHELBY Comer LPN 01/07/2018 10:07 AM Signed Pt. Advised we will call her with recommendations for HTN./SHLEBY Comer MD 01/07/2018 10:32 AM Signed Will start the patient on a low dose of lisinopril. Please have her come back in 3 weeks for a BP recheck. Have her bring her cuff in at that time for comparison. Thanks. Lee Mckeon CMA 01/07/2018 1:09 PM Signed Patient informed and states she came home after her nurse visit and checked her BP and it was 124/77. Patient states she has had her BP machine checked at the oncologists office. Patient does not want to start the Lisinopril 5 mg, she thinks that 124/77 is a good BP. Patient states her BP will always be high in the office because she gets nervous. Please advise. PETER Murray MD 01/07/2018 1:56 PM Signed I agree that a reading of 127/77 is a good reading, however, I need to confirm that her cuff reads the same as our readings. I would like her to return in 2-3 weeks with her cuff for a repeat check. Have her continue to monitor her blood pressure for now and bring her readings in at that time. For now, will hold off on lisinopril. Thanks. Lee Mckeon CMA 01/07/2018 2:39 PM Signed Left message informing patient of Dr. Wilson's directions to not start the Lisinopril and to continue monitoring BP at home and bring readings and BP cuff to 01/28/18 office visit to review. Lee Mckeon CMA Referring Provider: SELF [[id number]] Allergies As of Date: 01/07/2018 Noted Allergy Reaction DIPHENHYDRAMINE 12/15/2016 14 - Other: See Comments Comments: Dizziness NOVACAINE (PROCAINE) 04/25/2016 10 - Anaphylaxis 14 - Other: See Comments Date Reviewed: 01/07/2018 Reviewed by: Kalie Cordero - Fully Assessed Reason for Visit: Nurse Visit [792] Cmt: Hypertension Primary Visit Diagnosis:Essential hypertension [I10] Order(s):lisinopril (ZESTRIL, PRINIVIL) 5 mg tabletTake 1 tablet by mouth once daily.Disp: 30 tabletRfl: 1 Prescriptions as of 01/07/2018 Sig: OTC PRODUCT Calm plus sl COENZYME Q10 100 MG CAPSULE Take 100 mg by mouth once raven* GARLIC 100 MG TABLET Take by mouth. GRAPE SEED EXTRACT 25 MG CAPS* Take by mouth. OTC PRODUCT L-Theanine VITAMIN B COMPLEX-100 ORAL Take by mouth. CHOLECALCIFEROL (VITAMIN D3) * Take by mouth. FLAXSEED OIL HYDROCHLOROTHIAZIDE 25 MG TAB* Take 1 tablet by mouth once d* LISINOPRIL 5 MG TABLET Take 1 tablet by mouth once d* Problem List As Of Date 01/07/2018 Noted Resolved Obesity, Class I, BMI 30-34.9 [E66.9] INVALID FOR* Notes for Staff Call patient with results Other instructions from your clinician: Pt. Advised we will call her with recommendations for HTN./Kalie Cordero LPN Visit Notes: >> Kalie Cordero Mon Jan 07, 2018 9:50 AM Status: Signed Pt. Here for Nurse Visit Bp recheck. Bp at OV 12/24/17 190/108 HCTZ 25 mg. Started, Pt. Reports she id sensitive to a lot of medications. BP today 170/80 recheck in 5 minutes 160/70 Pt.reports Bp was 140/74 at home this morning. Keeps a log, did not bring in. Please advise of recommendations./Kalie Cordero LPN Prescriptions ordered this encounter Disp Refills Start End LISINOPRIL 5 MG TABLET 30 t* 1 01/07/2018 Route: ORAL Sig: Take 1 tablet by mouth once daily. Level of Service: EST PATIENT VISIT LEVEL 1 [[id number]] Follow Up: Call patient with results LOS history recorded Follow-up and Disposition History Recorded Encounter Status:Closed by ANDERSON WILSON MD on 01/07/18 FOOT 3V AP/LAT/OBL Observed: 12/24/2017 Status: F Source: [facility] 11:29 AM [facility] REPOSITORY Performed at [facility] APPROVED BY: Nelia Contreras MD EXAM TITLE: FOOT 3V AP/LAT/OBL RIGHT DATE: 12/24/2017 11:15 INDICATION: Right foot pain secondary to injury COMPARISON: None. FINDINGS: Assessment of the foot is limited secondary to marked osteopenia. There is slight lateral subluxation at the interphalangeal joint of the great toe with some degenerative changes and this cou ld be chronic in nature. Within these limitations, no definite fracture or dislocation is noted. Soft tissues appear normal. IMPRESSION: Within the limitations discussed, there is no definite fracture. If pain persists however, follow-up studies are recommended. PROGRESS Observed: 12/24/2017 Status: COMPLETED Source: [place] 10:25 AM [facility] REPOSITORY HNO ID: [id number] Author: Anderson Wilson Service: (none) Author Type: Physician Type: Progress Notes Filed: 12/24/2017 12:44 PM Note Text: Subjective The patient is here to establish care. She was seeing a provider at [facility] in [place] but wanted a different provider. She reports she watches her diet. The patient reports she walks on a treadmill and uses a stationary bike. She does not take any prescription medications at this time. She never smoked. The patient follows with gynecology and hematology for a history of uterine cancer. The patient reports she was initially started on blood pressure medications when she was 41. She reports she felt terrible, so she took herself off of it about 6 weeks later. The patient was started on bystolic in 2015 while she was undergoing chemotherapy, but stopped it after she finished with her chemotherapy in November 2016. The patient reports she occasionally checks her blood pressure at home. She states she tried to check it this morning and it read 'error.' She reports whenever she sees a doctor, it runs very high. She doesn't like the way the medications make her feel. The patient reports she stubbed her right first toe a few months ago and has been having swelling since then. She denies any pain and is able to ambulate without difficulty. The history is provided by the patient. Hypertension This is a chronic problem. The current episode started more than 1 year ago. The problem is uncontrolled. Associated symptoms include blurred vision (cataracts) and palpitations (with anxiety). Pertinent negatives include no chest pain, headaches or shortness of breath. Risk factors for coronary artery disease include obesity and post-menopausal state. Past treatments include nothing. The current treatment provides no improvement. Compliance problems include medication side effects. There is no history of CAD/AZ or CVA. There is no history of a thyroid problem. ALLERGIES Allergen Reactions - Diphenhydramine Other: See Comments Dizziness - Novacaine [Procaine] Anaphylaxis, Other: See Comments Current Outpatient Prescriptions: OTC PRODUCT Calm plus sl Disp: Rfl: coenzyme Q10 (COENZYME Q-10) 100 mg cap capsule Take 100 mg by mouth once daily. Disp: Rfl: Garlic 100 mg tab Take by mouth. Disp: Rfl: Grape Seed Extract (GRAPE SEED) 25 mg cap Take by mouth. Disp: Rfl: OTC PRODUCT L-Theanine Disp: Rfl: VITAMIN B COMPLEX-100 ORAL Take by mouth. Disp: Rfl: Cholecalciferol, Vitamin D3, (VITAMIN D-3) 2,000 unit cap Take by mouth. Disp: Rfl: Flaxseed Oil oil Disp: Rfl: No current facility-administered medications for this visit. There is no problem list on file for this patient. 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 Lives with . 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 Family History Problem Relation Age of Onset - Cancer Mother leukemia - Hypertension Mother - Cancer Sister uterine - Cancer Maternal Aunt colon Reviewed past medical and surgical history. BP 190/108 Pulse 84 Temp 36.7 ?C (98.1 ?F) Resp 16 Ht 154.3 cm (5' 0.75) Wt 74.5 kg (164 lb 3.2 oz) BMI 31.28 kg/m? Review of Systems Constitutional: Negative for fever and weight loss. 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 Negative for congestion and sore throat. Eyes: Positive for blurred vision (cataracts). Respiratory: Negative for cough and shortness of breath. Cardiovascular: Positive for palpitations (with anxiety). Negative for chest pain and leg swelling. Gastrointestinal: Negative for abdominal pain, constipation, diarrhea, nausea and vomiting. Genitourinary: Negative for dysuria. Musculoskeletal: Negative for falls. Skin: Negative for rash. Neurological: Positive for tingling (in fingers and feet, from chemotherapy). Negative for dizziness, loss of consciousness, weakness and headaches. Psychiatric/Behavioral: Negative for depression and suicidal ideas. The patient is nervous/anxious. Objective Physical Exam Constitutional: She is oriented to person, place, and time and well-developed, well-nourished, and in no distress. Vital signs are normal. She does not have a sickly appearance. No distress. HENT: Head: Normocephalic and atraumatic. Mouth/Throat: Oropharynx is clear and moist and mucous membranes are normal. Eyes: Conjunctivae are normal. Pupils are equal, round, and reactive to light. Cardiovascular: Normal rate, regular rhythm and normal heart sounds. No murmur heard. Pulmonary/Chest: Effort normal and breath sounds normal. No respiratory distress. She has no wheezes. Abdominal: Soft. Bowel sounds are normal. There is no tenderness. Musculoskeletal: She exhibits no edema. Right foot: There is swelling. There is normal range of motion and no tenderness. Feet: Neurological: She is alert and oriented to person, place, and time. Skin: Skin is warm and dry. She is not diaphoretic. Psychiatric: Mood normal. Nursing note and vitals reviewed. ASSESSMENT/PLAN: 1. Essential hypertension - ICD9: 401.9, ICD10: I10 (primary diagnosis) - poor control - Begin HCTZ - Encouraged dietary sodium restriction/DASH diet - Recommended regular aerobic exercise. - Recommend home blood pressure monitoring, to bring results in on next visit - Goal of BP <130/80 - HYDROCHLOROTHIAZIDE 25 MG TABLET The patient's blood pressure is poorly controlled. Repeat check did not show a significant difference. The patient reports she doesn't want to take medications due to their side effects. Counseled the patient on the risk of heart attacks and strokes with uncontrolled hypertension and she voiced understanding. Encouraged her to consider trying HCTZ as ordered. Will have her return in 2-3 weeks for a nursing BP check. 2. Swelling of toe of right foot - ICD9: 729.81, ICD10: M79.89 The patient demonstrates swelling of the right first toe. There is no erythema or tenderness. ROM is intact. Will get an XR to rule out any fractures. - XR FOOT GENERAL 3V AP/LAT/OBL RT 3. Obesity, Class I, BMI 30-34.9 - ICD9: 278.00, ICD10: E66.9 Discussed diet and exercise. Provided the patient a printout for the DASH diet. Discussed watching her sodium intake. 4. Encounter to establish care with new doctor - ICD9: V65.8, ICD10: Z76.89 The patient is here to establish care. Plan as above. Will have her return in 2-3 weeks for a BP check. She was instructed to call if she did not tolerate the medication, but I strongly encouraged her to take it as prescribed. The patient is due for a cholesterol check. Will review the patient's medical records before ordering to assess if anything else needs to be checked. She was in agreement with the plan. Return in about 2 weeks (around 01/07/2018) for nursing BP check. Anderson Wilson MD CNOV Observed: 12/24/2017 Status: COMPLETED Source: [place] 10:00 AM [facility] REPOSITORY Office Visit (AGINTMLW) KYLAH WILCOX ([id number]) 1945 F Date Time Provider Department 12/24/17 10:00 AM ANDERSON WILSONINTMLEtsefania During your visit today, we recorded the following information about you: Temperature Pulse Respiration Blood pressure 98.1 degrees 84/minute 16/minute 190/116 Weight Height 74.5 kg 1.543 m Anderson Wilson MD 12/24/2017 12:44 PM Signed Subjective The patient is here to establish care. She was seeing a provider at [facility] in [place] but wanted a different provider. She reports she watches her diet. The patient reports she walks on a treadmill and uses a stationary bike. She does not take any prescription medications at this time. She never smoked. The patient follows with gynecology and hematology for a history of uterine cancer. The patient reports she was initially started on blood pressure medications when she was 41. She reports she felt terrible, so she took herself off of it about 6 weeks later. The patient was started on bystolic in 2015 while she was undergoing chemotherapy, but stopped it after she finished with her chemotherapy in November 2016. The patient reports she occasionally checks her blood pressure at home. She states she tried to check it this morning and it read 'error.' She reports whenever she sees a doctor, it runs very high. She doesn't like the way the medications make her feel. The patient reports she stubbed her right first toe a few months ago and has been having swelling since then. She denies any pain and is able to ambulate without difficulty. The history is provided by the patient. Hypertension This is a chronic problem. The current episode started more than 1 year ago. The problem is uncontrolled. Associated symptoms include blurred vision (cataracts) and palpitations (with anxiety). Pertinent negatives include no chest pain, headaches or shortness of breath. Risk factors for coronary artery disease include obesity and post-menopausal state. Past treatments include nothing. The current treatment provides no improvement. Compliance problems include medication side effects. There is no history of CAD/AZ or CVA. There is no history of a thyroid problem. ALLERGIES Allergen Reactions - Diphenhydramine Other: See Comments Dizziness - Novacaine [Procaine] Anaphylaxis, Other: See Comments Current Outpatient Prescriptions: OTC PRODUCT Calm plus sl Disp: Rfl: coenzyme Q10 (COENZYME Q-10) 100 mg cap capsule Take 100 mg by mouth once daily. Disp: Rfl: Garlic 100 mg tab Take by mouth. Disp: Rfl: Grape Seed Extract (GRAPE SEED) 25 mg cap Take by mouth. Disp: Rfl: OTC PRODUCT L-Theanine Disp: Rfl: VITAMIN B COMPLEX-100 ORAL Take by mouth. Disp: Rfl: Cholecalciferol, Vitamin D3, (VITAMIN D-3) 2,000 unit cap Take by mouth. Disp: Rfl: Flaxseed Oil oil Disp: Rfl: No current facility-administered medications for this visit. There is no problem list on file for this patient. 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 Lives with . 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 Family History Problem Relation Age of Onset - Cancer Mother leukemia - Hypertension Mother - Cancer Sister uterine - Cancer Maternal Aunt colon Reviewed past medical and surgical history. BP 190/108 Pulse 84 Temp 36.7 ?C (98.1 ?F) Resp 16 Ht 154.3 cm (5' 0.75) Wt 74.5 kg (164 lb 3.2 oz) BMI 31.28 kg/m? Review of Systems Constitutional: Negative for fever and weight loss. 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 Negative for congestion and sore throat. Eyes: Positive for blurred vision (cataracts). Respiratory: Negative for cough and shortness of breath. Cardiovascular: Positive for palpitations (with anxiety). Negative for chest pain and leg swelling. Gastrointestinal: Negative for abdominal pain, constipation, diarrhea, nausea and vomiting. Genitourinary: Negative for dysuria. Musculoskeletal: Negative for falls. Skin: Negative for rash. Neurological: Positive for tingling (in fingers and feet, from chemotherapy). Negative for dizziness, loss of consciousness, weakness and headaches. Psychiatric/Behavioral: Negative for depression and suicidal ideas. The patient is nervous/anxious. Objective Physical Exam Constitutional: She is oriented to person, place, and time and well-developed, well-nourished, and in no distress. Vital signs are normal. She does not have a sickly appearance. No distress. HENT: Head: Normocephalic and atraumatic. Mouth/Throat: Oropharynx is clear and moist and mucous membranes are normal. Eyes: Conjunctivae are normal. Pupils are equal, round, and reactive to light. Cardiovascular: Normal rate, regular rhythm and normal heart sounds. No murmur heard. Pulmonary/Chest: Effort normal and breath sounds normal. No respiratory distress. She has no wheezes. Abdominal: Soft. Bowel sounds are normal. There is no tenderness. Musculoskeletal: She exhibits no edema. Right foot: There is swelling. There is normal range of motion and no tenderness. Feet: Neurological: She is alert and oriented to person, place, and time. Skin: Skin is warm and dry. She is not diaphoretic. Psychiatric: Mood normal. Nursing note and vitals reviewed. ASSESSMENT/PLAN: 1. Essential hypertension - ICD9: 401.9, ICD10: I10 (primary diagnosis) - poor control - Begin HCTZ - Encouraged dietary sodium restriction/DASH diet - Recommended regular aerobic exercise. - Recommend home blood pressure monitoring, to bring results in on next visit - Goal of BP <130/80 - HYDROCHLOROTHIAZIDE 25 MG TABLET The patient's blood pressure is poorly controlled. Repeat check did not show a significant difference. The patient reports she doesn't want to take medications due to their side effects. Counseled the patient on the risk of heart attacks and strokes with uncontrolled hypertension and she voiced understanding. Encouraged her to consider trying HCTZ as ordered. Will have her return in 2-3 weeks for a nursing BP check. 2. Swelling of toe of right foot - ICD9: 729.81, ICD10: M79.89 The patient demonstrates swelling of the right first toe. There is no erythema or tenderness. ROM is intact. Will get an XR to rule out any fractures. - XR FOOT GENERAL 3V AP/LAT/OBL RT 3. Obesity, Class I, BMI 30-34.9 - ICD9: 278.00, ICD10: E66.9 Discussed diet and exercise. Provided the patient a printout for the DASH diet. Discussed watching her sodium intake. 4. Encounter to establish care with new doctor - ICD9: V65.8, ICD10: Z76.89 The patient is here to establish care. Plan as above. Will have her return in 2-3 weeks for a BP check. She was instructed to call if she did not tolerate the medication, but I strongly encouraged her to take it as prescribed. The patient is due for a cholesterol check. Will review the patient's medical records before ordering to assess if anything else needs to be checked. She was in agreement with the plan. Return in about 2 weeks (around 01/07/2018) for nursing BP check. MD Anderson Platt MD 12/24/2017 10:52 AM Addendum Call if you have any problems with the new medication. Call with any other concerns or questions. What is high blood pressure? Blood pressure is the force of blood against artery hassan. It is measured in millimeters of mercury (mm Hg) and recorded as two numbers- systolic pressure (as the heart beats) over diastolic pressure (as the heart relaxes between beats). Both numbers are important Blood pressure rises and falls during the day. But when it stays elevated over time, then it's called high blood pressure. High blood pressure is dangerous because it makes the heart work too hard, and the force of its blood flow can harm arteries. High blood pressure often has no warning signs or symptoms. Once it occurs, it usually lasts a lifetime. If uncontrolled, it can lead to heart and kidney disease and stroke. High blood pressure affects about 50 million-or 1 in 4-adult Americans. High blood pressure is especially common among Americans, who tend to develop it at an earlier age and more often than whites. It also is common among older Americans-about 60 percent of those age 60 and older have high blood pressure. High blood pressure can be controlled if you take these steps: Maintain a healthy weight Be physically active Follow a healthy eating plan, which includes foods lower in salt and sodium If you drink alcoholic beverages, do so in moderation If you have high blood pressure and are prescribed medication, take it as directed All steps but the last also help to prevent high blood pressure. Hypertension and the Dash Diet What is the DASH Diet? Blood pressure can be unhealthy even if it stays only slightly above the optimal level of less than 120/80 mm Hg. The higher blood pressure rises above optimal, the greater the health risk. In the past, researchers tried to find clues about what in the diet affects blood pressure by testing various single nutrients, such as calcium and magnesium. These studies were done mostly with dietary supplements and their findings were not conclusive. Then, scientists supported by the [employer] [place] ([employer]) conducted two [place] studies. The first was called DASH, for Dietary Approaches to Stop Hypertension, and it tested nutrients as they occur together in food. Its findings showed that blood pressures were reduced with an eating plan that is low in saturated fat, cholesterol and total fat, and that emphasizes fruits, vegetables and lowfat dairy foods. This eating plan-known as the DASH diet-also includes whole grain products, fish, poultry and nuts. It is reduced in red meat, sweets and sugar-containing beverages. It is rich in magnesium, potassium and calcium, as well as protein and fiber. DASH compared three eating plans: A plan similar in nutrients to what many Americans consume; a plan similar to what Americans consume but higher in fruits and vegetables; and the DASH diet. All three plans used about 3,000 milligrams of sodium daily. None of the plans were vegetarian or used specialty foods. Results were dramatic: Both the fruits and vegetables plan and the DASH diet reduced blood pressure. But the DASH diet had the greatest effect, especially for those with high blood pressure. Further, the blood pressure reductions came fast-within 2 weeks of starting the plan. The second study was called DASH-Sodium, and it looked at the effect on blood pressure of a reduced dietary sodium intake as participants followed either the DASH diet or an eating plan typical of what many Americans consume. DASH-Sodium involved 412 participants. Their systolic blood pressures were 120-159 mm Hg and their diastolic blood pressures were 80-95 mm Hg. About 41 percent of them had high blood pressure. About 57 percent were women and about 57 percent were Americans. Participants were randomly assigned to one of the two eating plans and then followed for a month at each of three sodium levels. The three sodium levels were: a higher intake of about 3,300 milligrams per day (the level consumed by many Americans); an intermediate intake of about 2,400 milligrams per day; and a lower intake of about 1,500 milligrams per day. Results showed that reducing dietary sodium lowered blood pressure for both eating plans. At each sodium level, blood pressure was lower on the DASH diet than on the other eating plan. The biggest blood pressure reductions were for the DASH diet at the sodium intake of 1,500 milligrams per day. Those with hypertension saw the biggest reductions, but those without it also had large decreases. Those on the 1,500-milligram sodium intake, as well as those on the DASH diet, had fewer headaches. Other than that and blood pressure levels, there were no significant effects caused by the two eating plans or different sodium levels. DASH-Sodium shows the importance of lowering sodium intake -whatever your eating plan. But for a true winning combination, follow the DASH diet and lower your intake of salt. How do I make the DASH? The DASH diet used in the studies calls for a certain number of servings daily from various food groups. The number of servings you require may vary, depending on your caloric need. You should be aware that the DASH diet has more daily servings of fruits, vegetables, and whole grain foods than you may be used to eating. This makes it high in fiber, which can cause bloating and diarrhea in some persons. To avoid these problems, gradually increase your intake of fruit, vegetables, and whole grain foods. Twenty-four hundred milligrams of sodium equals about 6 grams, or 1 teaspoon, of table salt (sodium chloride); 1,500 milligrams of sodium equals about 4 grams, or 2/3 teaspoon, of table salt. These amounts include all salt consumed-that in food products, used in cooking, and added at the table. Only small amounts of sodium occur naturally in food. Processed foods account for most of the salt and sodium Americans consume. So, be sure to read food labels to choose products lower in sodium. You may be surprised at many of the foods that have sodium. They include soy sauce, seasoned salts, monosodium glutamate (MSG), baking soda, and some antacids-the range is wide. Since it is rich in fruits and vegetables, which are naturally lower in sodium than many other foods, the DASH diet makes it easier to consume less salt and sodium. Still, you may want to begin by adopting the DASH diet at the level of 2,400 milligrams of sodium per day and then further lower your sodium intake to 1,500 milligrams per day. How can you get started on the DASH diet? It's easy. The DASH diet requires no special foods and has no [id number]-[id number] recipes. Remember that some days the foods you eat may add up to more than the recommended servings from one food group and less from another. Similarly, you may have too much sodium on a particular day. But don't worry. Just be sure that the average of several days or a week comes close to what's recommended for the food groups and for your chosen daily sodium level. One note: If you take medication to control high blood pressure, you should not stop using it. Follow the DASH diet and talk with your doctor about your drug treatment. Referring Provider: SELF [[id number]] Allergies As of Date: 12/24/2017 Noted Allergy Reaction DIPHENHYDRAMINE 12/15/2016 14 - Other: See Comments Comments: Dizziness NOVACAINE (PROCAINE) 04/25/2016 10 - Anaphylaxis 14 - Other: See Comments Date Reviewed: 12/24/2017 Reviewed by: Anderson Wilson - Fully Assessed Reason for Visit: New Patient [172] Primary Visit Diagnosis:Essential hypertension [I10] Other Visit Diagnoses:Swelling of toe of right foot [M79.89] Obesity, Class I, BMI 30-34.9 [E66.9] Encounter to establish care with new doctor [Z76.89] Order(s):XR FOOT GENERAL 3V AP/LAT/OBL RT [[id number]] Order #: [id number] FUTURE hydroCHLOROthiazide (HYDRODIURIL, ESIDRIX) 25 mg tabletTake 1 tablet by mouth once daily.Disp: 30 tabletRfl: 1 Prescriptions as of 12/24/2017 Sig: OTC PRODUCT Calm plus sl COENZYME Q10 100 MG CAPSULE Take 100 mg by mouth once raven* GARLIC 100 MG TABLET Take by mouth. GRAPE SEED EXTRACT 25 MG CAPS* Take by mouth. OTC PRODUCT L-Theanine VITAMIN B COMPLEX-100 ORAL Take by mouth. CHOLECALCIFEROL (VITAMIN D3) * Take by mouth. FLAXSEED OIL HYDROCHLOROTHIAZIDE 25 MG TAB* Take 1 tablet by mouth once d* Problem List As Of Date 12/24/2017 Noted Resolved Obesity, Class I, BMI 30-34.9 [E66.9] INVALID FOR* Other instructions from your clinician: Call if you have any problems with the new medication. Call with any other concerns or questions. What is high blood pressure? Blood pressure is the force of blood against artery hassan. It is measured in millimeters of mercury (mm Hg) and recorded as two numbers-systolic pressure (as the heart beats) over diastolic pressure (as the heart relaxes between beats). Both numbers are important Blood pressure rises and falls during the day. But when it stays elevated over time, then it's called high blood pressure. High blood pressure is dangerous because it makes the heart work too hard, and the force of its blood flow can harm arteries. High blood pressure often has no warning signs or symptoms. Once it occurs, it usually lasts a lifetime. If uncontrolled, it can lead to heart and kidney disease and stroke. High blood pressure affects about 50 million-or 1 in 4- adult Americans. High blood pressure is especially common among Americans, who tend to develop it at an earlier age and more often than whites. It also is common among older Americans-about 60 percent of those age 60 and older have high blood pressure. High blood pressure can be controlled if you take these steps: Maintain a healthy weight Be physically active Follow a healthy eating plan, which includes foods lower in salt and sodium If you drink alcoholic beverages, do so in moderation If you have high blood pressure and are prescribed medication, take it as directed All steps but the last also help to prevent high blood pressure. Hypertension and the Dash Diet What is the DASH Diet? Blood pressure can be unhealthy even if it stays only slightly above the optimal level of less than 120/80 mm Hg. The higher blood pressure rises above optimal, the greater the health risk. In the past, researchers tried to find clues about what in the diet affects blood pressure by testing various single nutrients, such as calcium and magnesium. These studies were done mostly with dietary supplements and their findings were not conclusive. Then, scientists supported by the [employer] [place] ([employer]) conducted two [place] studies. The first was called DASH, for Dietary Approaches to Stop Hypertension, and it tested nutrients as they occur together in food. Its findings showed that blood pressures were reduced with an eating plan that is low in saturated fat, cholesterol and total fat, and that emphasizes fruits, vegetables and lowfat dairy foods. This eating plan-known as the DASH diet-also includes whole grain products, fish, poultry and nuts. It is reduced in red meat, sweets and sugar-containing beverages. It is rich in magnesium, potassium and calcium, as well as protein and fiber. DASH compared three eating plans: A plan similar in nutrients to what many Americans consume; a plan similar to what Americans consume but higher in fruits and vegetables; and the DASH diet. All three plans used about 3,000 milligrams of sodium daily. None of the plans were vegetarian or used specialty foods. Results were dramatic: Both the fruits and vegetables plan and the DASH diet reduced blood pressure. But the DASH diet had the greatest effect, especially for those with high blood pressure. Further, the blood pressure reductions came fast-within 2 weeks of starting the plan. The second study was called DASH-Sodium, and it looked at the effect on blood pressure of a reduced dietary sodium intake as participants followed either the DASH diet or an eating plan typical of what many Americans consume. DASH-Sodium involved 412 participants. Their systolic blood pressures were 120-159 mm Hg and their diastolic blood pressures were 80-95 mm Hg. About 41 percent of them had high blood pressure. About 57 percent were women and about 57 percent were Americans. Participants were randomly assigned to one of the two eating plans and then followed for a month at each of three sodium levels. The three sodium levels were: a higher intake of about 3,300 milligrams per day (the level consumed by many Americans); an intermediate intake of about 2,400 milligrams per day; and a lower intake of about 1,500 milligrams per day. Results showed that reducing dietary sodium lowered blood pressure for both eating plans. At each sodium level, blood pressure was lower on the DASH diet than on the other eating plan. The biggest blood pressure reductions were for the DASH diet at the sodium intake of 1,500 milligrams per day. Those with hypertension saw the biggest reductions, but those without it also had large decreases. Those on the 1,500-milligram sodium intake, as well as those on the DASH diet, had fewer headaches. Other than that and blood pressure levels, there were no significant effects caused by the two eating plans or different sodium levels. DASH-Sodium shows the importance of lowering sodium intake -whatever your eating plan. But for a true winning combination, follow the DASH diet and lower your intake of salt. How do I make the DASH? The DASH diet used in the studies calls for a certain number of servings daily from various food groups. The number of servings you require may vary, depending on your caloric need. You should be aware that the DASH diet has more daily servings of fruits, vegetables, and whole grain foods than you may be used to eating. This makes it high in fiber, which can cause bloating and diarrhea in some persons. To avoid these problems, gradually increase your intake of fruit, vegetables, and whole grain foods. Twenty-four hundred milligrams of sodium equals about 6 grams, or 1 teaspoon, of table salt (sodium chloride); 1,500 milligrams of sodium equals about 4 grams, or 2/3 teaspoon, of table salt. These amounts include all salt consumed-that in food products, used in cooking, and added at the table. Only small amounts of sodium occur naturally in food. Processed foods account for most of the salt and sodium Americans consume. So, be sure to read food labels to choose products lower in sodium. You may be surprised at many of the foods that have sodium. They include soy sauce, seasoned salts, monosodium glutamate (MSG), baking soda, and some antacids-the range is wide. Since it is rich in fruits and vegetables, which are naturally lower in sodium than many other foods, the DASH diet makes it easier to consume less salt and sodium. Still, you may want to begin by adopting the DASH diet at the level of 2,400 milligrams of sodium per day and then further lower your sodium intake to 1,500 milligrams per day. How can you get started on the DASH diet? It's easy. The DASH diet requires no special foods and has no [id number] recipes. Remember that some days the foods you eat may add up to more than the recommended servings from one food group and less from another. Similarly, you may have too much sodium on a particular day. But don't worry. Just be sure that the average of several days or a week comes close to what's recommended for the food groups and for your chosen daily sodium level. One note: If you take medication to control high blood pressure, you should not stop using it. Follow the DASH diet and talk with your doctor about your drug treatment. Prescriptions ordered this encounter Disp Refills Start End HYDROCHLOROTHIAZIDE 25 MG TABLET 30 t* 1 12/24/2017 Route: ORAL Sig: Take 1 tablet by mouth once daily. Level of Service: NEW PATIENT VISIT LEVEL 3 [[id number]] Disposition: Return in about 2 weeks (around 01/07/2018) for nursing BP check. Follow-up and Disposition History Recorded Encounter Status:Closed by ANDERSON WILSON MD on 12/24/17 ONCOLOGY VISIT REPORT Observed: 10/02/2017 Status: F Source: [place] 3:38 PM [facility] REPOSITORY [facility] [place] [address] OFFICE VISIT Date of Service: 10/02/17 1524 MR#: [id number] Acct: [id number] Name: KYLAH WILCOX Lakshmi Rep #: [id number] : 1945 From: Edgar Bailey MD Age/Sex: 72/F Location: OMD Status: Signed Subjective - Date of Service Date of Service:: 10/02/17 - Chief Complaint F/u for Endometrial cancer. - History of Present Illness Ms. Kylah Wilcox is a 71-year-old woman who presented with uterine bleeding. Uterine biopsy on 04/17/2016 showed endometrial carcinoma with papillary features. The patient underwent total abdominal hysterectomy and bilateral salpingo-oophorectomy with pelvic lymphadenectomy on 05/25/2016 for uterine cancer, stage IIIC (pT2, pN1, M0) disease. She began adjuvant chemotherapy with carboplatin and dose-dense Taxol on 06/27/2016. She experienced a delay of cycle 3, day 15 due to thrombocytopenia. Cycle 4, day [address] abdomen/pelvis obtained on 10/04/16 to address complaints of transient abd pain revealed right renal mass. She underwent a total nephrectomy on 11/15/[address] Walker. 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 CT on 03/23/2017 showed no evidence of disease. She is on observation, comes in for follow up. - Past Medical/Social History Past Medical History Past Medical History: Anxiety,Hypertension Other Past Medical History: BLOOD TRANSFUSION BREAST LUMP/CYST HEARING PROBLEMS Cancer: Uterine cancer Other Cancer History: RENAL MASS HEMOCCULT POSITIVE STOOL DRUG INDUCED THROMBOCYTOPENIA ACUTE DIARRHEA HIGH RISK MEDICATION FITTING AND ADJUSTMENT OF VASCULAR CATHETER HEARING LOSS ADENOCARCINOMA, ENDOMETRIUM Past Surgical History Surgical: Colonoscopy,Hysterectomy Other Surgical History: RIGHT KIDNEY REMOVED PORT PLACEMENT Family History Paternal Past Medical History: Heart disease Maternal Past Medical History: Unknown Maternal History of Cancer: Leukemia Social History Social History: No changes Smoking Status Never smoker Review of Systems Constitutional:: Denies: Fever, Sweats, Weight loss, Appetite change, Chills Cardiovascular:: Denies: Chest pain, Palpitations, Dyspnea on exertion, Orthopnea, PND, Shortness of breath Respiratory: Denies: Cough, Hemoptysis, Shortness of Breath, Wheezing Gastrointestinal:: Denies: Abdominal pain, Nausea, Vomiting, Diarrhea, Constipation, Hematochezia Genitourinary: Denies: Dysuria, Hematuria, 15, Flank pain Musculoskeletal:: Denies: Back pain, Myalgia, Arthralgia Skin: Reports: - - Has shingles of L trigerminal nerve.. Denies: Rash, Skin Changes, Wounds Neurological:: Denies: Headache, Dizziness, Visual changes, Tinnitus, Hearing loss Psychiatric: Denies: Anxiety, Depression, Homicidal Ideations, Suicidal Ideations Vital Signs Height 5 ft 2 in Weight: 70.307 kg Weight in Pounds 155.0 lbs Pulse Ox 98 - Physical Exam General: Alert, Oriented x3, No apparent distress HEENT: Atraumatic, PERRLA, EOMI, Normocephalic, - - + watery Left eye. Oropharynx:: Dry mucosa Neck:: Supple, Trachea midline. Negative for: JVD, bilateral Cardiac:: Regular rate, Regular rhythm, Normal S1, Normal S2. Negative for: Murmur Lungs: Clear to auscultation, Excusion symmetrical. Negative for: Rhonchi, Wheezes Abdomen:: Bowel sounds x 4, Soft, Non-tender, Non-distended. Negative for: Hepatosplenomegaly Extremities:: Negative for: Cyanosis, Edema Neurological: Neuro grossly intact Skin:: Negative for: Lesions, Rash, Petechiae, Ecchymosis Psychiatric:: Appropriate affect, Euthymic Lymphatics:: Negative for: Cervical lymphadenopathy, Supraclavicular lymphadenopathy, Axillary lymphadenopathy Laboratory Data: 09/25/2017 CA125 25. Assessment and Plan Endometrial CAncer stage IIIC s/p RAPHAEL, BSO and 4 cycles for adjuvant chemotherapy Carboplatin and dose dense Taxol. Oncocytoma R kidney s/p R nephrectomy. No evidence of disease clinically. She is scared doing a lot of CT because of Radiation. Plan is continue observation. Agrees to do a CT before her next contrast. RTC 6 months with cbc, cmp, CA125 and CT a/p. Medications: Prescriptions This Visit Medication Instructions Recorded L Theanine DAILY 02/28/17 Lidocaine/Prilocaine 30 gm TP DAILY PRN PRN #1 cream..g. 04/16/17 [Lidocaine-Prilocaine Cream] Primary Care Provider: Gisselle Tellez Referring Provider: Gisselle Tellez - Problem List (1) History of uterine cancer Status: Chronic Code Visit Office Visits / Consults: 80406 OV L3 Est 10/02/17 1538 <Electronically signed by Edgar Bailey MD> Date Edgar Morrowigner Signature: Date (if applicable) CC: CBC W/DIFF, AUTOMATED Collected: 09/25/2017 Status: F Source: [place] 2:18 PM [facility] REPOSITORY TYPE CODE TESTS RESULT OUT OF RANGE REFERENCE UNITS LAB L100.1000 4.4-11.0 K/mm3 Normal WBC 7.2 LAB L100.1200 4.2-5.4 M/mm3 Normal RBC 4.41 LAB L100.1300 12.0-15.0 g/dl Normal HGB 12.5 LAB L100.1400 37-47 % Normal HCT 38.8 LAB L100.1500 81-99 fL Normal MCV 88.0 LAB L100.1600 27.0-32.0 pg Normal MCH 28.3 LAB L100.1700 32-36 g/gl Normal MCHC 32.2 LAB L100.1810 11.6-14.6 % High RDW CV 15.7 LAB L100.1820 35.1-43.9 fl High RDW SD 50.3 LAB L100.1900 150-450 K/mm3 Low PLT 136 LAB L100.2000 6.2-12.0 fl High MPV 12.5 LAB L100.2100 47-70 % Normal NEUT% 69.9 LAB L100.2200 19-41 % Low LY% 17.4 LAB L100.2300 0-10 % Normal MONO% 10.0 LAB L100.2400 0-5 % Normal EO% 2.0 LAB L100.2500 0-1 % Normal BASO% 0.3 LAB L100.2550 0.0-0.9 % Normal IM GRAN % 0.400 Result Comment: IG% - Immature Granulocytes (promyelocytes, myelocytes and metamyelocytes) > 1% indicates that a LEFT SHIFT is Present. LAB L100.2620 2.0-7.7 X10 3/uL Normal Absolute Neut 5.0 LAB L100.2720 0.83-4.51 X10 3/ul Normal Absolute Lymph 1.25 Performed By: #### L100.0100 #### [facility] Conrado Castro. SERGEI Esparza, [address] COMPREHENSIVE METABOLIC Collected: 09/25/2017 Status: F Source: [place] 2:18 PM [facility] REPOSITORY Order Comment: Reason for Laboratory Test OV TYPE CODE TESTS RESULT OUT OF RANGE REFERENCE UNITS LAB L501.0100 74-106 mg/dL Normal GLU 87 Result Comment: Please note revised GLUCOSE reference range effective 2017. LAB L501.1000 7-18 mg/dL High BUN 24 LAB L501.1100 0.55-1.02 mg/dL High CREAT,SERUM 1.18 Result Comment: The validity of the calculated GFR AND GFRAA in patients over 70 years has not been determined. Clinical correlation is essential. LAB L501.1110 >60 mL/min Low EST GFR 48 Result Comment: Non- GFR Calc LAB L501.1115 >60 mL/min Low EST GFR - AA 58 Result Comment: GFR Calc LAB L501.1255 ml/min Normal Estimated CRCL 33.08 LAB L501.1300 10-20 RATIO High BUN/CRE 20.3 LAB L501.1500 6.4-8. g/dL Normal 2 T PROT 6.8 LAB L501.1800 3.2-5. g/dL Normal 0 ALB 3.6 LAB L501.1950 2.2-4. g/dL Normal 2 GLOB 3.2 LAB L501.2000 0.9-2. RATIO Normal 4 A/G 1.1 LAB L501.2200 8.5-10 mg/dL Normal .1 CA 8.5 LAB L501.4100 15-37 U/L Low AST 14 LAB L501.4305 45-117 U/L Normal ALK P 56 LAB L501.4405 13-56 U/L Normal ALT 21 Result Comment: Please note revised ALT reference range effective 2017. LAB L501.4600 0.20-1.00 mg/dL Normal T BILI 0.60 LAB L501.5300 136-145 mmol/L Normal NA 139 LAB L501.5600 3.5-5.1 mmol/L Normal K 3.9 LAB L501.5900 98-107 mmol/L Normal CL 104 LAB L501.6100 21.0-32.0 mmol/L Normal CO2 28.0 LAB L501.6200 5-15 Normal GAP 7 Performed By: #### L500.4050 #### [facility] [address] [place], [address] CANCER ANTIGEN 125 Collected: 09/25/2017 Status: F Source: [place] 2:18 PM [facility] REPOSITORY Order Comment: Reason for Laboratory Test OV TYPE CODE TESTS RESULT OUT OF RANGE REFERENCE UNITS LAB L3100.5000 0.0-38.1 U/mL Normal CA125 25.9 2303 Result Comment: [employer] ECLIA methodology Performed at: [facility] [id number] Farm Appraiser: Toney Conway PhD, Phone: [phone] Performed By: #### L3100.5000 #### [facility] (refer to report for specific site) refer to report for address and phone number ALLERGIES ALLERGIES DATE TYPE / CODE NAME / CODE REACTION SEVERITY SOURCE 08/07/2018 Drug procaine/F00 Other Unknown [facility] Allergy/4160 [id number](RX Hospital 13124(SNOMED RM) Repository CT) 08/07/2018 Drug diphenhydram DIZZY Unknown [facility] Allergy/4160 ine/[id number] Hospital 32609(SNOMED 87(RXNORM) Repository CT) ENCOUNTERS ENCOUNTERS ADMIT/DISCHARGE ACCOUNT ADMITTING ENCOUNTER LOCATION SOURCE NUMBER CLASS 08/13/2018 [id number] Ambulatory [place] 6 [facility] ing:LABSPEC Repository 08/13/2018 [id number] Ambulatory Isaias [place] 9 [facility] ing:NM Repository 08/07/2018 [id number] Ambulatory BMSBuilding:B Isaias 1 MS.CF.[facility] Repository 08/07/2018 [id number] Ambulatory [place]ai[place]ai[place] 4 [facility] ing:OMD Repository 08/05/2018 [id number] Ambulatory [place] 0 [facility] ing:CT Repository 07/24/2018 [id number] Ambulatory BMSBuilding:B Isaias 4 MS.CF.[facility] Repository 04/16/2018 [id number] Ambulatory BMSBuilding:B [place] 4 MS.CF.[facility] Repository 10/02/2017 [id number] Ambulatory BMSBuilding:B Isaias 7 MS.WMO [facility] Hospital Repository PAYERS PAYERS ENCOUNTER GUARANTOR PAYER SUBSCRIBER SOURCE 08/13/2018 KYLAH Mart[place] Primary KYLAH Esparza [id number] Insurance:MEDICARE MCCORTDOB: Community HERB PART A BPolicy [place]: [id number] [id number] Repository [address]Rou: (330) Date:2018-08-13 [phone] () 08/13/2018 Secondary KYLAH A [place] Insurance:HUMANA MCCORTDOB: [facility] [id number] Hospital Number: Repository [id number] Date:7029-97-41Mj[address] [address]KK: 08/13/2018 Tertiary NOT GIVENUNK [place] Insurance:SELF PAY [facility] Number: Effective Repository Date:2018-08-13 08/13/2018 KYLAH Martins Primary KYLAH Esparza [id number] W Insurance:MEDICARE MCCORTDOB: Community HERB PART A BPolicy Number: [id number], [place] [id number] Repository [address]Bov: (330) Date:2018-08-07 [phone] () 08/13/2018 Secondary KYLAH A [place] Insurance:HUMANA MCCORTDOB: [facility] [id number] Hospital Number: Repository [id number] Date:4827-18-58Mx[address] [address]SN: 08/13/2018 Tertiary NOT GIVENUNK [place] Insurance:SELF PAY [facility] Number: Effective Repository Date:2018-08-07 08/07/2018 KYLAH Martins Primary KYLAH [place] [id number] W Insurance:MEDICARE MCCORTDOB: Community HERB PART A BPolicy Number: [id number], [place] [id number] Repository [address]Quc: (330) Date:2008-02-21 [phone] () 08/07/2018 Secondary KYLAH A [place] Insurance:HUMANA MCCORTDOB: Community COMMERCIALPolic [id number] Hospital Number: Repository [id number] Date:2321-47-91Wj[address] [address]QQ: 08/07/2018 Tertiary NOT GIVENUNK [place] Insurance:SELF PAY [facility] Number: Effective Repository Date:2018-08-07 08/07/2018 KYLAH A Primary KYLAH A [place] [id number] W Insurance:MEDICARE MCCORTDOB: Community HERB PART A BPolicy Number: [id number], [place] [id number] Repository [address]Tvd: 330) Date:2008-02-21 [phone] () 08/07/2018 Secondary KYLAH A [place] Insurance:HUMANA [facility] [place]: [facility] [id number] Hospital Number: Repository [id number] Date:8206-09-95Yf[address] [address]UL: 08/07/2018 Tertiary NOT GIVENUNK [place] Insurance:SELF PAY [facility] Number: Effective Repository Date:2016-10-09 08/05/2018 KYLAH A Primary KYLAH A [place] [id number] W Insurance:MEDICARE MCCORTDOB: Community HERB PART A BPolicy Number: [id number], [place] [id number] Repository [address]Ezt: 330) Date:2018-07-24 [phone] () 08/05/2018 Secondary KYLAH A [place] Insurance:HUMANA [facility] [place]: [facility] [id number] Hospital Number: Repository [id number] Date:5660-11-53Gm[address] [address]BY: 08/05/2018 Tertiary NOT GIVENUNK [place] Insurance:SELF PAY [facility] Number: Effective Repository Date:2018-07-24 07/24/2018 KYLAH A Primary KYLAH A [place] [id number] W Insurance:MEDICARE MCCORTDOB: Community HERB PART A BPolicy Number: [id number], [place] [id number] Repository [address]Wad: 330) Date:2008-02-21 [phone] () 07/24/2018 Secondary KYLAH A [place] Insurance:HUMANA MCCORTDOB: [facility] [id number] Hospital Number: Repository [id number] Date:6721-30-75Bo [address] [place] [address]AS: 07/24/2018 Tertiary NOT GIVENUNK [place] Insurance:SELF PAY [facility] Number: Effective Repository Date:2018-07-24 04/16/2018 Kylah A Primary Kylah A Isaias [id number] Insurance:MEDICARE MccortDOB: Community HERB PART A BPolicy Number: [id number], [place] [id number] Repository [address]Mbe: 330) Date:2008-02-21 [phone] () 04/16/2018 Secondary Kylah A [place] Insurance:HUMANA MccortDOB: [facility] [id number] Hospital Number: Repository [id number] Date:2506-00-35Xy[address] [address]VQ: 04/16/2018 Tertiary NOT GIVENUNK [place] Insurance:SELF PAY [facility] Number: Effective Repository Date:2018-04-16 10/02/2017 Kylah A Primary Kylah A Isaias [id number] W Insurance:MEDICARE MccortDOB: Community Herb PART A BPolicy Number: [id number] [id number] Repository [address]Qcj: 330) Date:2008-02-21 [phone] () 10/02/2017 Secondary Kylah A [place] Insurance:HUMANA MccortDOB: [facility] [id number] Hospital Number: Repository [id number] Date:1825-13-58Ve [place] [id number]: 10/02/2017 Tertiary NOT GIVENUNK [place] Insurance:SELF PAY [facility] Effective Repository Date:2017-10-02
== END ==
PROVIDERS: Family Provider Internal Medicine; PCP Internal Medicine; Referring Provider Internal Medicine Medical Oncology; Visit Provider Internal Medicine Medical Oncology
DX: C55 Malignant neoplasm of uterus, part unspecified (principal)
CPT/HCPCS: 78306

== ENCOUNTER → 2018-08-13 13:38 | Outpatient (CLI) | payer MEDICARE, OTHER, SELFPAY ==
--- NOTE | 2016-04-17 | IMM_PTH ---
PATIENT: KYLAH WILCOX LOC: [facility] U#:[id number] AGE/SX: 80/F ROOM: RE08/13/[address]: Dr. Edgar Bailey MD : 1945 BED: DIS: SPEC #: [id number] RECD: 08/13/18 13:42 STATUS: SHAI DAMIAN #: [id number] MANNY: 04/17/16 00:[address]: Edgar Bailey DEPT: IMMUNOHISTOCHEMISTRY RECD BY: Amy Edwards Tissues: Endometrium, NOS Procedures: MLH-1 (add) MSH6 (add) Anti-PMS2 (add) KI-67 (add) P53 (add) MSH2 (initial) PHYSICIAN & INSTITUTION [place] [id number] SPECIMEN INFORMATION: Tissue Source: Endometrial biopsy Clinical Info: Postmenopausal bleeding Specimen Number: [id number] CPT code: 35814, 59564 x5 METHODOLOGY: Deparaffinized sections of prefer/formalin-fixed tissue or PAP/DQ stained slides are incubated with monoclonal/polyclonal antibodies/oligonucleotide probes. Localization is made via biotin free immunoperoxidase method. Appropriate controls are performed and reacted as expected. Results on target cell population are indicated in the following table: RESULTS: ANTIBODY / CLONE RESULT Ki-67 (30-9) positive, moderate P53 (DO-7) positive, >50% MLH-1 (M1) positive MSH2 (25D12) positive MSH6 (44) positive PMS2 (YHS4242) positive These tests were developed and their performance characteristics determined by [facility]. They may not have been cleared or approved by the U.S. Food and Drug Administration. The FDA has determined that such clearance or approval is not necessary. INTERPRETATION: Endometrial biopsy: Result of Microsatellite Instability Study: Negative (no loss of mismatch protein; no microsatellite instability detected). AM:nigel 08/14/18
[2018-08-07 14:37] VITALS: BMI 30.3
--- OUTSIDE RECORDS SUMMARY | 2018-10-15 18:21 | XMS RPT_ITS ---
:1945 Author Organization [place] Support Name Relationship Address Phone MARKELL WILCOX Unavailable [address] + [place] [address] ERNIE WILCOX Unavailable [address] + [place] [address] R Unavailable Unavailable Unavailable MARKELL WILCOX Unavailable [address] + [place] [address] ERNIE WILCOX Unavailable [address] + [place] [address] R Unavailable Unavailable Unavailable MARKELL WILCOX Unavailable [address] + [place] [address] ERNIE WILCOX Unavailable [address] + [place] [address] R Unavailable Unavailable Unavailable MARKELL WILCOX Unavailable [address] + [place] [address] ERNIE WILCOX Unavailable [address] + [place] [address] R Unavailable Unavailable Unavailable MARKELL WILCOX Unavailable [address] + [place] [address] ERNIE WILCOX Unavailable [address] + [place] [address] R Unavailable Unavailable Unavailable MARKELL WILCOX Unavailable [address] + [place] [address] ERNIE WILCOX Unavailable [address] + [place] [address] R Unavailable Unavailable Unavailable MARKELL WILCOX Unavailable [address] + [place] [address] ERNIE WILCOX Unavailable [address] + [place] [address] R Unavailable Unavailable Unavailable MARKELL WILCOX Unavailable [address] + [place] [address] ERNIE WILCOX Unavailable [address] + [place] [address] R Unavailable Unavailable Unavailable Care Team Providers [...] Edgar Attending Unavailable Prah, Edgar Referring Unavailable [place], Anderson Primary Care Unavailable Prah, Edgar Attending [...] Unknown Z85.42 - Personal Edgar Bailey Active [place] history of [facility] malignant Hospital neoplasm of other Repository parts of uterus / Z85.42(ICD-10) 08/07/2018 Unknown 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, part Hospital unspecified / Repository C55(ICD-10) PROCEDURES PROCEDURES No Procedure Records FoundRESULTS RESULTS BONE SCAN WHOLE Observed: 08/13/2018 Status: F Source: [place] BODY 9:46 AM [facility] REPOSITORY [facility] Imaging Services [address] [place] [address] Bone Scan Whole Body MR#: [id number] Acct: [id number] Name: KYLAH WILCOX Lakshmi Rep #: [id number] : 1945 F 73 From: Handy Collier DO PCP: Anderson Wilson MD Status: REG CLI Study: Bone Scan Whole Body Date of Exam: 08/13/18 Exam# [id number] Ordering Dr: Edgar Bailey MD CLINICAL: 73-year-old [...] CC: Anderson Wilson MD; Edgar Bailey MD Company Laborer: Signed ONCOLOGY VISIT REPORT Observed: 08/07/2018 Status: F Source: [place] 4:59 PM [facility] REPOSITORY [facility] Medical Oncology [facility] [place] [address] OFFICE VISIT Date of Service: 08/07/18 1646 MR#: [id number] Acct: [id number] Name: KYLAH WILCOX Rep #: [id number] : 1945 From: Edgar Bailey MD Age/Sex: [...] Acute Code Visit Office Visits / Consults: 66237 OV L5 Est 08/07/18 6624 <Electronically signed by Edgar Bailey MD> Date Edgar Bailey MD Cosigner Signature: Date (if applicable) CC: CANCER ANTIGEN 125 Collected: 08/07/2018 Status: F Source: [place] 3:08 PM [facility] REPOSITORY Order Comment: Reason for Laboratory Test . TYPE CODE TESTS RESULT OUT OF RANGE REFERENCE UNITS LAB L3100.5000 0.0-38.1 U/mL High CA125 100.0 2303 Result Comment: [facility] Electrochemiluminescence Immunoassay (ECLIA) Values obtained with different assay methods or kits cannot be used interchangeably. Results cannot be interpreted as absolute evidence of the presence or absence of malignant disease. Performed at: [facility] [id number] Shut Off Worker: Toney Conway PhD, Phone: [phone] Performed By: #### L3100.5000 #### [facility] (refer to report for specific site) refer to report for address and phone number CARCINOEMBRYONIC ANTIGEN Collected: 08/05/2018 Status: F Source: [place] 1:35 PM [facility] REPOSITORY Order Comment: Reason for Laboratory Test [...] or absence of malignant disease. Performed at: [facility] [id number] Shut Off Worker: Toney Conway PhD, Phone: [phone] Performed By: #### L3100.2300 #### [facility] (refer to report for specific site) refer to report for address and phone number ABDOMEN/PELVIS W IV CONT Observed: 08/05/2018 Status: F Source: [place] ONLY 12:34 PM [facility] REPOSITORY [facility] Imaging Services [address] [place] [address] Abdomen/Pelvis W IV Cont ONLY MR#: [id number] Acct: [id number] Name: KYLAH WILCOX Rep #: [id number] : 1945 F 73 From: Dominic Tapia MD PCP: Anderson Wilson MD Status: REG CLI Study: Abdomen/Pelvis W IV Cont ONLY Date of Exam: 08/05/18 Exam# [id number] Ordering Dr: Edgar Bailey MD STUDY: CT [...] CC: Anderson Wilson MD; Edgar Bailey MD Company Laborer: Signed CHEST WITH CONTRAST Observed: 08/05/2018 Status: F Source: [place] 12:34 PM [facility] REPOSITORY [facility] Imaging Services [address] [place] [address] Chest WITH Contrast MR#: [id number] Acct: [id number] Name: KYLAH WILCOX Rep #: [id number] : 1945 F 73 From: Niko Nicole MD PCP: Anderson Wilson MD Status: REG CLI Study: Chest WITH Contrast Date of Exam: 08/05/18 Exam# [id number] Ordering Dr: Edgar Bailey MD STUDY: CT [...] CC: Anderson Wilson MD; Edgar Bailey MD Company Laborer: Signed ONCOLOGY VISIT REPORT Observed: 07/24/2018 Status: F Source: [place] 2:56 PM [facility] REPOSITORY [facility] Oncology [address] [place] [address] OFFICE VISIT Date of Service: 07/24/18 1444 MR#: [id number] Acct: [id number] Name: KYLAH WILCOX Rep #: [id number] : 1945 From: Edgar Bailey MD Age/Sex: [...] Acute Code Visit Office Visits / Consults: 57244 OV L3 Est 07/24/18 4496 <Electronically signed by Edgar Bailey MD> Date Edgar Bailey MD Cosigner Signature: Date (if applicable) CC: PROGRESS Observed: 07/22/2018 Status: COMPLETED Source: [place] 3:[address] [facility] REPOSITORY HNO ID: [id number] Author: Louis FeldmanRn) Eileen Service: (none) Author [...] . CNPTOUTREACH Observed: 07/22/2018 Status: COMPLETED Source: [place] 12:[address] 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, [address] CBC W/DIFF, AUTOMATED Collected: 07/19/2018 Status: F Source: [place] 3:01 PM [facility] REPOSITORY Order Comment: Reason for Laboratory Test [...] Lymph 0.91 Performed By: #### L100.0100 #### [facility] [address] [place], [address] CANCER ANTIGEN 125 Collected: 07/19/2018 Status: F Source: [place] 3:01 PM [facility] REPOSITORY Order Comment: Reason for Laboratory Test . TYPE CODE TESTS RESULT OUT OF RANGE REFERENCE UNITS LAB L3100.5000 0.0-38.1 U/mL High CA125 72.7 2303 Result Comment: [facility] ECLIA methodology Performed at: [address] [id number] Shut Off Worker: Toney Conway PhD, Phone: [phone] Performed By: #### L3100.5000 #### [facility] (refer to report for specific site) refer to report for address and phone number PROGRESS Observed: 05/15/2018 Status: COMPLETED Source: [place] 11:36 AM [facility] REPOSITORY HNO ID: [id number] Author: Louis (Rn) Eileen Service: (none) Author [...] in any hospital and/or ED outside the [facility] in the Past 6 months? No [...] the patient's advance care planning wishes No Confucianism or spiritual beliefs that impact treatment No [...] In the last 12 months, has your [employer] company shut off your service for not [...] RN CNPTOUTREACH Observed: 05/15/2018 Status: COMPLETED Source: [place] 12:[address] [facility] REPOSITORY Patient Outreach (AGINTMLW) KYLAH WILCOX ([id number]) 1945 F Date Time Provider Department 05/15/18 [...] in any hospital and/or ED outside the [facility] in the Past 6 months? 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 [3612] Cmt: PCC initial encounter [...] VISIT REPORT Observed: 04/16/2018 Status: F Source: [place] 3:26 PM [facility] REPOSITORY [place] [facility] [place] [address] OFFICE VISIT Date of Service: 04/16/18 1522 MR#: [id number] Acct: [id number] Name: KYLAH WILCOX Rep #: [id number] : 1945 From: Edgar Bailey MD Age/Sex: [...] Chronic Code Visit Office Visits / Consults: 57963 OV L3 Est 04/16/18 1526 <Electronically signed by Edgar Bailey MD> Date Edgar Bailey MD Cosigner Signature: Date (if applicable) CC: Gisselle Tellez DO LIPID PROFILE Collected: 04/10/2018 Status: F Source: [place] 2:01 PM [facility] REPOSITORY TYPE CODE TESTS RESULT OUT OF [...] VLDL 40 Performed By: #### L500.4100 #### [facility] [place], [address] CBC W/DIFF, AUTOMATED Collected: 04/10/2018 Status: F Source: [place] 1:58 PM [facility] REPOSITORY Order Comment: Reason for Laboratory Test [...] Lymph 1.14 Performed By: #### L100.0100 #### [facility] [address] [facility]. [place], [place], [address] #### L3100.5000 #### [facility] (refer to report for specific site) refer to report for address and phone number CANCER ANTIGEN 125 Collected: 04/10/2018 Status: F Source: [place] 1:58 PM [facility] REPOSITORY Order Comment: Reason for Laboratory Test . TYPE CODE TESTS RESULT OUT OF RANGE REFERENCE UNITS LAB L3100.5000 0.0-38.1 U/mL Normal CA125 37.4 2303 Result Comment: [facility] ECLIA methodology Performed at: [facility] [id number] Shut Off Worker: Toney Conway PhD, Phone: [phone] Performed By: #### L100.0100 #### [facility] [address] [facility]. [place], [place], [address] #### L3100.5000 #### [facility] (refer to report for specific site) refer to report for address and phone number COMPREHENSIVE METABOLIC Collected: 04/10/2018 Status: F Source: [facility] 1:58 PM [facility] REPOSITORY Order Comment: Reason for Laboratory Test [...] GAP 10 Performed By: #### L500.4050 #### [facility] [address] [place], [address] PROGRESS Observed: 02/25/2018 Status: COMPLETED Source: [place] 4:[address] [facility] REPOSITORY HNO ID: [id number] Author: Anderson Wilson Service: (none) Author Type: [...] ordered. PROGRESS Observed: 02/25/2018 Status: COMPLETED Source: [place] 10:[address] [facility] REPOSITORY HNO ID: [id number] Author: Lee Mckeon Service: (none) Author Type: Road Passenger Firer Type: Progress Notes Filed: 02/25/2018 11:03 AM [...] CMA CNNURSE Observed: 02/25/2018 Status: COMPLETED Source: [place] 10:[address] [facility] REPOSITORY Nurse Visit (AGINTMLW) KYLAH WILCOX ([id number]) 1945 F Date Time Provider Department 02/25/18 [...] of Service: EST PATIENT VISIT LEVEL 1 [80667] LOS history recorded Follow-up and Disposition History Recorded Encounter Status:Closed by LEE MCKEON on 02/25/18 COMPREHENSIVE PANEL Collected: 02/21/2018 Status: F Source: [facility] 11:06 AM HEALTH SYSTEM REPOSITORY TYPE CODE TESTS RESULT OUT OF REFERENCE UNITS RANGE LAB COMPUTER OPERATIONS MANAGER(LOINC) 136-145 mEq/L Low Sodium Blood 132 LAB [...] 18 Ratio Performed By: #### LP14 #### [place] [address] MDRD EGFR Collected: 02/21/2018 Status: F Source: [facility] 11:06 AM HEALTH SYSTEM REPOSITORY TYPE CODE TESTS RESULT OUT OF RANGE REFERENCE UNITS LAB LGFRF(LOINC >60mL/min/1.73m ) 2 eGFR 53.13 Result Comment: If the patient is , multiply the result by 1.210. Performed By: #### LGFR #### [facility] [address] [place] [address] OBSOLETE Observed: 02/21/2018 Status: COMPLETED Source: [place] 12:[address] [facility] REPOSITORY Refill (AGINTMLW) KYLAH WILCOX ([id number]) 1945 F Date Time Provider Department 02/21/18 ANDERSON WILSON AGINTMLW During your visit today, we recorded the following information about you: Aisha Walsh, DRUM PLATER 02/21/2018 9:56 AM Signed Called pt let [...] 02/21/18 PROGRESS Observed: 01/28/2018 Status: COMPLETED Source: [place] 10:[address] [facility] REPOSITORY O ID: [id number] Author: Anderson Wilson Service: (none) Author Type: [...] side effects. There is no history of CAD/IL or CVA. 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 Will get those records for review. - [...] MD CNOV Observed: 01/28/2018 Status: COMPLETED Source: [place] [address]:[address] [facility] REPOSITORY Office Visit (AGINTMLW) KYLAH WILCOX ([id number]) 1945 F Date Time Provider Department 01/28/18 [...] side effects. There is no history of CAD/IL or CVA. 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 Will get those records for review. - [...] pressure is <130/90. Referring Provider: ANDERSON WILSON [[id number]] Allergies As of Date: 01/28/2018 Noted Allergy [...] 0 LIPID PANEL BASIC [SQLIPB] Order #: [id number] FUTURE amLODIPine (NORVASC) 2.5 mg tabletTake 1 [...] Disc: Changing Therapy/Dosage Form Level of Service: [facility] PATIENT VISIT LEVEL 4 [53051] Disposition: Return in about 4 weeks (around 02/25/2018) for nursing BP check. Follow-up and Disposition History Recorded Encounter Status:Closed by ANDERSON WILSON MD on 01/28/18 PROGRESS Observed: 01/07/2018 Status: COMPLETED Source: [place] 2:[address] [facility] REPOSITORY HNO ID: [id number] Author: Lee Mckeon Service: (none) Author Type: Road Passenger Firer Type: Progress Notes Filed: 01/07/2018 2:39 PM Note Text: Left message informing patient of Dr. Wilson's directions to not start the Lisinopril and to continue monitoring BP at home and bring readings and BP cuff to 01/28/18 office visit to review. Lee Mckeon CMA PROGRESS Observed: 01/07/2018 Status: COMPLETED Source: [place] 1:[address] [facility] REPOSITORY HNO ID: [id number] Author: Anderson Wilson Service: (none) Author Type: [...] Thanks. PROGRESS Observed: 01/07/2018 Status: COMPLETED Source: [place] 1:[address] [facility] REPOSITORY HNO ID: [id number] [facility]: [facility]) Juan Service: (none) Author Type: Road Passenger Firer Type: Progress Notes Filed: 01/07/2018 1:09 PM [...] she gets nervous. Please advise. Lee Mckeon [facility] PROGRESS Observed: 01/07/2018 Status: COMPLETED Source: [place] 10:[address] [facility] REPOSITORY HNO ID: [id number] Author: Anderson Wilson Service: (none) Author Type: Physician Type: Progress Notes Filed: 01/07/2018 10:32 AM Note Text: Will start the patient on a low dose of lisinopril. Please have her come back in 3 weeks for a BP recheck. Have her bring her cuff in at that time for comparison. Thanks. CNNURSE Observed: 01/07/2018 Status: COMPLETED Source: [place] 9:[address] [facility] REPOSITORY Nurse Visit (AGINTMLW) KYLAH WILCOX ([id number]) 1945 F Date Time Provider Department 01/07/18 [...] we will call her with recommendations for HTN./SHELBY Comer MD 01/07/2018 10:32 AM Signed Will [...] of Service: EST PATIENT VISIT LEVEL 1 [66482] Follow Up: Call patient with results LOS history recorded Follow-up and Disposition History Recorded Encounter Status:Closed by ANDERSON WILSON MD on 01/07/18 FOOT 3V AP/LAT/OBL Observed: 12/24/2017 Status: F Source: [facility] 11:29 AM HEALTH SYSTEM REPOSITORY Performed at [facility] APPROVED BY: Nelia Contreras MD EXAM [...] recommended. PROGRESS Observed: 12/24/2017 Status: COMPLETED Source: [place] 10:[address] [facility] REPOSITORY HNO ID: [id number] Author: Anderson Wilson Service: (none) Author Type: Physician Type: Progress Notes Filed: 12/24/2017 12:44 PM Note Text: Subjective The patient is here to establish care. She was seeing a provider at [facility] in [place] but wanted a different provider. She reports [...] side effects. There is no history of CAD/IL or CVA. 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 REPOSITORY Office Visit (AGINTMLW) KYLAH WILCOX ([id number]) 1945 F Date Time Provider Department 12/24/17 10:00 AM ANDERSON WILSONINTMLEstefania During your visit today, we recorded the following information about you: Temperature Pulse Respiration Blood pressure 98.1 degrees 84/minute 16/minute 190/116 Weight Height 74.5 kg 1.543 m Anderson Wilson MD 12/24/2017 12:44 PM Signed Subjective The patient is here to establish care. She was seeing a provider at [facility] in [place] but wanted a different provider. She reports [...] side effects. There is no history of CAD/IL or CVA. 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 The first [...] requires no special foods and has no pgdo-ed-zoywxv recipes. Remember that some days the foods [...] [Z76.89] Order(s):XR FOOT GENERAL 3V AP/LAT/OBL RT [0029922] Order #: [id number] FUTURE hydroCHLOROthiazide (HYDRODIURIL, ESIDRIX) 25 mg tabletTake [...] by the National Heart, [employer], [employer] [place] (NHLBI) conducted two [place] studies. The first [...] requires no special foods and has no quxn-zj-cdbklu recipes. Remember that some days the foods [...] of Service: NEW PATIENT VISIT LEVEL 3 [40922] Disposition: Return in about 2 weeks (around 01/07/2018) for nursing BP check. Follow-up and Disposition History Recorded Encounter Status:Closed by ANDERSON WILSON MD on 12/24/17 ONCOLOGY VISIT REPORT Observed: 10/02/2017 Status: F Source: [place] 3:38 PM [facility] REPOSITORY [place] [facility] [place] [place] [address] OFFICE VISIT Date of Service: 10/02/17 1524 MR#: [id number] Acct: [id number] Name: KYLAH WILCOX Lakshmi Rep #: [id number] : 1945 From: Edgar Bailey MD Age/Sex: [...] Chronic Code Visit Office Visits / Consults: 95647 OV L3 Est 10/02/17 1538 <Electronically signed by Edgar Bailey MD> Date Edgar Morrowigner Signature: Date (if applicable) CC: CBC W/DIFF, AUTOMATED Collected: 09/25/2017 Status: F Source: [place] 2:18 PM [facility] REPOSITORY TYPE CODE TESTS RESULT OUT OF [...] Lymph 1.25 Performed By: #### L100.0100 #### [facility] [address] [place], [address] COMPREHENSIVE METABOLIC Collected: 09/25/2017 Status: F Source: [place] 2:18 PM [facility] REPOSITORY Order Comment: Reason for Laboratory Test [...] GAP 7 Performed By: #### L500.4050 #### [facility] [address] [place], [address] CANCER ANTIGEN 125 Collected: 09/25/2017 Status: F Source: [place] 2:18 PM [facility] REPOSITORY Order Comment: Reason for Laboratory Test OV TYPE CODE TESTS RESULT OUT OF RANGE REFERENCE UNITS LAB L3100.5000 0.0-38.1 U/mL Normal CA125 25.9 2303 Result Comment: [employer] ECLIA methodology Performed at: [facility] [id number] Shut Off Worker: Toney Conway PhD, Phone: [phone] Performed By: #### L3100.5000 #### [facility] (refer to report for specific site) refer to report for address and phone number ALLERGIES ALLERGIES DATE TYPE / CODE NAME / CODE REACTION SEVERITY SOURCE 08/07/2018 Drug procaine/F00 Other Unknown [facility] Allergy/4160 5128837(RX Hospital 11131(SNOMED RM) Repository CT) 08/07/2018 Drug diphenhydram DIZZY Unknown [facility] Allergy/4160 ine/[id number] Hospital 51631(SNOMED 87(RXNORM) Repository CT) ENCOUNTERS ENCOUNTERS ADMIT/DISCHARGE ACCOUNT ADMITTING ENCOUNTER LOCATION SOURCE NUMBER CLASS 08/13/2018 [id number] Ambulatory [place] [facility] ing:LABSPEC Repository 08/13/2018 [id number] Ambulatory [place] [facility] ing:NM Repository 08/07/2018 [id number] Ambulatory BMSBuilding:B [place] [facility]Critical access hospital Repository 08/07/2018 [id number] Ambulatory [place] [facility] ing:OMD Repository 08/05/2018 [id number] Ambulatory [place] 0 [facility] ing:CT Repository 07/24/2018 [id number] Ambulatory BMSBuilding:B [place] 4 [facility].Critical access hospital Repository 04/16/2018 [id number] Ambulatory BMSBuilding:B [place] [facility].Critical access hospital Repository 10/02/2017 [id number] Ambulatory BMSBuilding:B [place] 7 MS.WMO [facility] Hospital Repository PAYERS PAYERS ENCOUNTER GUARANTOR PAYER SUBSCRIBER SOURCE 08/13/2018 KYLAH [place] Primary KYLAH [place] [id number] W Insurance:MEDICARE MCCORTDOB: Community HERB PART A BPolicy Number: [id number] [id number] Repository [address]Vxo: (330) Date:2018-08-13 [phone] () 08/13/2018 Secondary KYLAH A [place] Insurance:HUMANA MCCORTDOB: [facility] [id number] Hospital Number: Repository [id number] Date:[id number] [address]XW: 08/13/2018 Tertiary NOT GIVENUNK [place] Insurance:SELF PAY [facility] Number: Effective Repository Date:2018-08-13 08/13/2018 KYLAH Martins Primary KYLAH [place] [id number] W Insurance:MEDICARE MCCORTDOB: Community HERB PART A BPolicy Number: [id number], [place] [id number] Repository [address]Pnr: (330) Date:2018-08-07 [phone] () 08/13/2018 Secondary KYLAH A [place] Insurance:HUMANA MCCORTDOB: [facility] [id number] Hospital Number: Repository [id number] Date:[id number] [address]MF: 08/13/2018 Tertiary NOT GIVENUNK [place] Insurance:SELF PAY [facility] Number: Effective Repository Date:2018-08-07 08/07/2018 KLYAH Martins Primary KYLAH Mile[place]ster [id number] W Insurance:MEDICARE MCCORTDOB: Community HERB PART A BPolicy Number: [id number], [place] [id number] Repository [address]Nih: (330) Date:2008-02-21 [phone] () 08/07/2018 Secondary KYLAH A [place] Insurance:HUMANA MCCORTDOB: Community COMMERCIALPolic [id number] Hospital Number: Repository [id number] Date:[id number] [address]LD: 08/07/2018 Tertiary NOT GIVENUNK [place] Insurance:SELF PAY [facility] Hospital Number: Effective Repository Date:2018-08-07 08/07/2018 KYLAH A Primary KYLAH A [place] [id number] W Insurance:MEDICARE MCCORTDOB: Community HERB PART A BPolicy Number: [id number], [place] [id number] Repository [id number]: 330) Date:2008-02-21 [phone] () 08/07/2018 Secondary KYLAH A Isaias [facility] [id number] Hospital Number: Repository [id number] Date:[id number] [address]LF: 08/07/2018 Tertiary NOT GIVENUNK Isaias Insurance:SELF PAY [facility] Hospital Number: Effective Repository Date:2016-10-09 08/05/2018 KYLAH A Primary KYLAH A [place] [id number] W Insurance:MEDICARE MCCORTDOB: Community HERB PART A BPolicy Number: [id number], [place] [id number] Repository [address]Byu: 330) Date:2018-07-24 [phone] () 08/05/2018 Secondary KYLAH A Isaias Insurance[facility] [place]: [facility] [id number] Hospital Number: Repository [id number] Date:[id number] [address]GK: 08/05/2018 Tertiary NOT GIVENUNK Isaias Insurance:SELF PAY [facility] Number: Effective Repository Date:2018-07-24 07/24/2018 KYLAH A Primary KYLAH A Isaias [id number] W Insurance:MEDICARE MCCORTDOB: Community HERB PART A BPolicy Number: [id number], [place] [id number] Repository [address]Uag: 330) Date:2008-02-21 [phone] () 07/24/2018 Secondary KYLAH A [place] Insurance:HUMANA MCCORTDOB: [facility] [id number] Hospital Number: Repository [id number] Date:[id number] [place] [address]ZE: 07/24/2018 Tertiary NOT GIVENUNK [place] Insurance:SELF PAY [facility] Hospital Number: Effective Repository Date:2018-07-24 04/16/2018 Kylah A Primary Kylah A Isaias [id number] W Insurance:MEDICARE MccortDOB: Community HERB PART A BPolicy Number: [id number], [place] [id number] Repository [address]Kqe: 330) Date:2008-02-21 [phone] () 04/16/2018 Secondary Kylah A Isaias Insurance:HUMANA MccortDOB: [facility] [id number] Hospital Number: Repository [id number] Date:[id number] [address]IH: 04/16/2018 Tertiary NOT GIVENUNK [place] Insurance:SELF PAY [facility] Hospital Number: Effective Repository Date:2018-04-16 10/02/2017 Kylah A Primary Kylah A Isaias [id number] W Insurance:MEDICARE MccortDOB: Community Herb PART A BPolicy Number: [id number] [place], [place] [id number] Repository [address]Kkb: 330) Date:2008-02-21 [phone] () 10/02/2017 Secondary Kylah A [place] Insurance:HUMANA MccortDOB: [facility] [id number] Hospital Number: Repository [id number] Date:4424-22-21Dt [place] [id number]: 10/02/2017 Tertiary NOT GIVENUNK Isaias Insurance:SELF PAY [facility] Effective Repository Date:2017-10-02
== END ==
PROVIDERS: Visit Provider Internal Medicine Medical Oncology
DX: C55 Malignant neoplasm of uterus, part unspecified (principal)
CPT/HCPCS: 78306; 88341; 88342

== ENCOUNTER 2018-08-26 11:35 | Inpatient (IN) | payer MEDICARE, OTHER, SELFPAY ==
[2018-08-21 13:48] VITALS: BMI 29.9
[2018-08-26] VITALS (16 sets, daily range): BP systolic 136–201; BP diastolic 83–115; PULSE 86–112; RESP 16–24; TEMP 36.9–37.2; O2SAT 94–96; BMI 29.8; BMI 31.4
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
--- NOTE | 2018-08-26 11:41 | EKG12_ITS ---
Test Reason : Blood Pressure : / mmHG Vent. Rate : 111 BPM Atrial Rate : 111 BPM P-R Int : 156 ms QRS Dur : 068 ms QT Int : 330 ms P-R-T Axes : 069 000 009 degrees QTc Int : 448 ms Sinus tachycardia with Premature supraventricular complexes Low voltage QRS Septal infarct , age undetermined Abnormal ECG Confirmed by OWEN JOSEPH, AILEEN ([id number]), editorial intern JOVANNY BARRIGA ([id number]) on 08/28/2018 1:55:16 PM Referred By: Aicha Park Confirmed By:AILEEN WEAVER MD
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
[2018-08-26] MEDS: 0.9% Normal Saline 1,000 ML 150 ML IV (11:47)
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
[2018-08-26 11:53] LABS: Absolute Lymphocyte Count 1.47 X10^3/ul (0.83-4.51); Absolute Neutrophil Count 8.7 X10^3/uL (2.0-7.7); Basophil# 0.03 X10^3/uL; Basophil% 0.3 % (0-1); Eosinophil# 0.21 X10^3/uL; Eosinophils% 1.9 % (0-5); Hematocrit 39.9 % (37-47); Hemoglobin 12.9 g/dl (12.0-15.0); Lymphocyte # 1.47 X10^3/ul (4.0); Mean Corp Hgb Conc 32.3 g/gl (32-36); Mean Corpuscular Volume 80.3 fL (81-99); Monocyte# 0.85 X10^3/uL; Monocyte% 7.5 % (0-10); Neutrophil # 8.68 X10^3/uL (2.7-7.7); Neutrophil % 76.7 % (47-70); POSITIVE COUNT NO; POSITIVE DIFFERENTIAL NO; POSITIVE MORPHOLOGY NO; Platelet Count 159 K/mm3 (150-450); RBC Distribution Width CV 17.8 % (11.6-14.6); RBC Distribution Width SD 51.6 fl (35.1-43.9); Red Blood Count 4.97 M/mm3 (4.2-5.4); White Blood Count 11.3 K/mm3 (4.4-11.0)
[2018-08-26] MEDS: Nitroglycerin Oint 1 INCH PACKET TRANSDERM. (12:00)
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
[2018-08-26 12:17] LABS: Anion Gap 8 (5-15); BUN 17 mg/dL (7-18); BUN/Creat Ratio 15.9 RATIO (10-20); Calcium,Total 8.6 mg/dL (8.5-10.1); Chloride 102 mmol/L (98-107); Creatinine, Serum 1.07 mg/dL (0.55-1.02); EST Glomerular Filtration Rate 53 mL/min (>60); Est Glom Filt Rate - Afr Amer 64 mL/min (>60); Estimated Creatinine Clearance 39.23 ml/min; Glucose 140 mg/dL (74-106); International Normalized Ratio 1.1; Potassium 3.9 mmol/L (3.5-5.1); Sodium Level 136 mmol/L (136-145)
[2018-08-26 12:18] LABS: Partial Thromboplast Time 35.1 Seconds (24.1-36.2)
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
--- NOTE | 2018-08-26 13:15 | EKG12_ITS ---
Test Reason : Blood Pressure : / mmHG Vent. Rate : 111 BPM Atrial Rate : 111 BPM P-R Int : 170 ms QRS Dur : 062 ms QT Int : 324 ms P-R-T Axes : 054 -03 014 degrees QTc Int : 440 ms Sinus tachycardia with Premature supraventricular complexes Low voltage QRS Septal infarct , age undetermined Possible Inferior infarct , age undetermined Abnormal ECG Confirmed by OWEN JOSEPH, AILEEN ([id number]), material expeditor JOVANNY BARRIGA ([id number]) on 08/28/2018 1:55:39 PM Referred By: Aicha Park Confirmed By:AILEEN WEAVER MD
--- NOTE | 2018-08-26 13:26 | ED.RN ---
PT RETURNED FROM [facility] PENDING ADMISSION OR POSSIBLE TRANSFER. RN FROM [facility] PRESENT AT BEDSIDE TO CHECK CATH SITE. PT RETURNS A&O X3, DENIES PAIN AND DISCOMFORT AT THIS TIME. MOUTH SWABS GIVEN TO PT FOR C/O DRY MOUTH. DENIES FURTHER NEEDS AT THIS TIME.
--- NOTE | 2018-08-26 13:30 | CL.D_ITS ---
Patient Name: KYLAH WILCOX Study Date: 08/26/2018 Performing: Aicha Park MD Ht: 64 inches 163 cm : 1945 Wt: 174.4 lbs 79 kg Age: 73 Gender: female BSA: 1.85 PROCEDURE(S) PERFORMED [id number]/COR CLINICAL PROFILE AND INDICATIONS Heart Failure: None CAD Presentations: STEMI. Symptom onset Date/Time: 08/26/2018 CONCLUSIONS Mild angiographic CAD. CALLUM III flow all epicardial vessels EKG changes possibly secondary to transient vasospasm RECOMMENDATIONS Medical therapy Risk factor modification DESCRIPTION OF PROCEDURE The patient arrived to the procedure lab. The risks and benefits of the procedure as well as a full d escription of our services here and current unavailability of surgical backup were fully explained to the patient and/or their significant other prior to the catheterization. The Timeout was completed, verifying the correct patient and procedure. The patient's procedural site was prepped and draped in the usual fashion. Local anesthetic was given subcutaneously to right radial region with Lidocaine 2% . Using a modified Seldinger technique, arterial access was obtained via the right radial artery, a 6 Fr sheath was inserted. Left Coronary Artery selective angiography was performed in multiple views u sing a 5 Fr. 4.0 Goodwin catheter. Right Coronary Artery selective angiography was then performed in mu ltiple views using a 5 Fr. 4.0 Goodwin catheter.The arterial sheath was pulled and a TR Band was applie d for hemostasis CORONARY ANGIOGRAPHY DOMINANCE: Right Dominant LEFT HEART ASSESSMENT Left Ventricular Ejection Fraction: Not assessed LEFT MAIN: Angiographically normal LEFT ANTERIOR DECENDING ARTERY: 40% Mid. 50% ostial D1 CIRCUMFLEX ARTERY: 40% Mid. 50% OM1 ostial (small vessel) RIGHT CORONARY ARTERY: Mild luminal irregularities. 30% distal COMPLICATIONS No Complications PROCEDURE MEDICATIONS Oxygen: 2 L/min via nasal cannula Benadryl 25 mg IV @ 08/26/2018 12:39:32 Metoprolol 10 mg 08/26/2018 12:45:58 Pepcid 40 mg IV 08/26/2018 12:42:19 Solu-cortef 100 mg IV 08/26/2018 12:39:41 Verapamil 2.5mg, Ntg 100mcgs, given IA 08/26/2018 12:40:53 SUMMARY OF HEMODYNAMIC DATA Time AIR REST ECG 12:34:55 AO 180/104 (140) SA 12:41:52 Signed By Aicha Park MD On 08/26/2018 13:29:13 Aicha Park MD
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
--- NOTE | 2018-08-26 17:13 | ED.RN ---
PT WITH LEFT WRIST FX, VELCRO SPLINT APPLIED.
[2018-08-26] MEDS: 0.9% Normal Saline 1,000 ML 100 ML IV (18:28)
[2018-08-26] MEDS: amLODIPine 5 MG Tablet PO (18:29)
[2018-08-26] MEDS: Isosorbide Mononitrate 30 MG Tablet PO (18:29)
[2018-08-26] MEDS: 0.9% NaCl Peripheral Flush Adult/Peds IV ×2 (20:40→20:45)
[2018-08-26 21:23] LABS: CPK Total, Creatine Kinase 167 U/L (26-192)
[2018-08-27] VITALS (7 sets, daily range): BP systolic 139–150; BP diastolic 76–89; PULSE 90–105; RESP 17–18; TEMP 37–37.4; O2SAT 94–96
[2018-08-27] MEDS: 0.9% NaCl Peripheral Flush Adult/Peds IV ×4 (05:30→15:21)
[2018-08-27] MEDS: 0.9% NaCl VAD Flush 10 ML IV ×3 (05:40→05:55)
--- NOTE | 2018-08-27 05:55 | EKG12_ITS ---
Test Reason : POST CATH Blood Pressure : / mmHG Vent. Rate : 085 BPM Atrial Rate : 085 BPM P-R Int : 190 ms QRS Dur : 066 ms QT Int : 380 ms P-R-T Axes : 057 -06 035 degrees QTc Int : 452 ms Normal sinus rhythm Low voltage QRS Septal infarct , age undetermined Abnormal ECG Confirmed by OWEN JOSEPH, AILEEN ([id number]), video tape editor JOVANNY BARRIGA ([id number]) on 08/28/2018 1:55:59 PM Referred By: Aicha Park Confirmed By:AILEEN WEAVER MD
[2018-08-27 06:22] LABS: Absolute Lymphocyte Count 1.45 X10^3/ul (0.83-4.51); Absolute Neutrophil Count 8.7 X10^3/uL (2.0-7.7); Basophil# 0.02 X10^3/uL; Basophil% 0.2 % (0-1); Eosinophil# 0.04 X10^3/uL; Eosinophils% 0.4 % (0-5); Hematocrit 38.3 % (37-47); Hemoglobin 11.9 g/dl (12.0-15.0); Lymphocyte # 1.45 X10^3/ul (4.0); Lymphocyte % 12.8 % (19-41); Mean Corp Hgb Conc 31.1 g/gl (32-36); Mean Corpuscular Volume 80.5 fL (81-99); Mean Platelet Vol. 12.1 fl (6.2-12.0); Monocyte# 1.06 X10^3/uL; Monocyte% 9.4 % (0-10); Neutrophil # 8.71 X10^3/uL (2.7-7.7); Neutrophil % 76.8 % (47-70); Platelet Count 155 K/mm3 (150-450); RBC Distribution Width CV 17.7 % (11.6-14.6); RBC Distribution Width SD 51.3 fl (35.1-43.9); Red Blood Count 4.76 M/mm3 (4.2-5.4); White Blood Count 11.3 K/mm3 (4.4-11.0)
[2018-08-27 06:31] LABS: POSITIVE COUNT NO; POSITIVE DIFFERENTIAL NO; POSITIVE MORPHOLOGY NO
[2018-08-27 06:33] LABS: Anion Gap 10 (5-15); BUN 17 mg/dL (7-18); BUN/Creat Ratio 17.5 RATIO (10-20); Calcium,Total 8.5 mg/dL (8.5-10.1); Chloride 101 mmol/L (98-107); Creatinine, Serum 0.97 mg/dL (0.55-1.02); EST Glomerular Filtration Rate 59 mL/min (>60); Est Glom Filt Rate - Afr Amer 72 mL/min (>60); Estimated Creatinine Clearance 37.81 ml/min; Glucose 95 mg/dL (74-106); Potassium 3.8 mmol/L (3.5-5.1); Sodium Level 137 mmol/L (136-145)
[2018-08-27] MEDS: Acyclovir 200 MG Capsule PO (09:11)
[2018-08-27] MEDS: Isosorbide Mononitrate 30 MG Tablet PO (09:16)
[2018-08-27] MEDS: Aspirin E.C. 81 MG Tablet PO (09:16)
[2018-08-27] MEDS: Lisinopril 5 MG Tablet PO (09:17)
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
[2018-08-27] MEDS: Carvedilol 3.125 MG TABLET PO (14:32)
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
--- NOTE | 2018-08-27 19:15 | ED.RN ---
PT WITH WRIST FX DOCUMENTED INCORRECTLY TO BE ON THE LEFT SIDE WITH VELCRO WRIST SPLINT APPLICATION. FX WAS ON THE RIGHT WRIST AND VELCRO WRIST SPLINT WAS APPLIED TO THE RIGHT SIDE SO THAT CATHETERIZATION SITE WOULD BE ACCESSIBLE.
--- NOTE | 2018-08-28 07:02 | CRPHASE1_ITS ---
Patient Data/Charges Reason Not Completed:: Patient was not a PCI w/intervention although she had a heart cath procedure. Dr. Park initiated the order in error. Verified w/rn labor delivery staff. Risk Factors/Lifestyle Family History: Family History (Last Reviewed 08/26/18 @ 16:48 by Harish Trinidad DO) Mother Leukemia Father Heart disease
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
== END 2018-08-27 16:49 | disposition home or self-care (01) | DRG 287 ==
LOC: ED 12:26 → PCU 16:20
PROVIDERS: Family Medicine; Emergency Provider Emergency Medicine; Family Provider Internal Medicine; PCP Internal Medicine; Referring Provider Internal Medicine Cardiovascular Disease
DX: I20.1 Angina pectoris with documented spasm (principal); S02.31XA Fracture of orbital floor, right side, initial encounter for closed fracture; I42.9 Cardiomyopathy, unspecified; V89.2XXA Person injured in unspecified motor-vehicle accident, traffic, initial encounter; W22.12XA Striking against or struck by front passenger side automobile airbag, initial encounter; S02.2XXA Fracture of nasal bones, initial encounter for closed fracture; N32.9 Bladder disorder, unspecified; S01.81XA Laceration without foreign body of other part of head, initial encounter; Z79.899 Other long term (current) drug therapy
CPT/HCPCS: 36591; 70450; 70486; 71045; 72125; 73110; 80048; 82550; 84484; 85025; 85610; 85730; 93005; 93308; 93454; 97161; 97165; 99285; J7030; J7040; A4216; C1769; C1894; J3490; Q9967

== ENCOUNTER 2018-08-31 09:01 | Inpatient (IN) | payer MEDICARE, OTHER, SELFPAY ==
[2018-08-31] VITALS (58 sets, daily range): BP systolic 70–240; BP diastolic 51–122; PULSE 62–116; RESP 11–38; TEMP 36–37.2; O2SAT 92–100; BMI 29.8; BMI 31.4; BMI 31.8
--- NOTE | 2018-08-31 09:37 | EKG12_ITS ---
Test Reason : SOB Blood Pressure : / mmHG Vent. Rate : 100 BPM Atrial Rate : 100 BPM P-R Int : 166 ms QRS Dur : 078 ms QT Int : 316 ms P-R-T Axes : 049 006 040 degrees QTc Int : 407 ms Normal sinus rhythm Septal infarct , age undetermined Abnormal ECG Confirmed by OWEN JOSEPH, AILEEN ([id number]), book or script editor JOVANNY BARRIGA ([id number]) on 09/03/2018 8:29:38 AM Referred By: ROWENA Confirmed By:AILEEN WEAVER MD
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
[2018-08-31 10:04] LABS: Absolute Lymphocyte Count 1.19 X10^3/ul (0.83-4.51); Absolute Neutrophil Count 9.6 X10^3/uL (2.0-7.7); Basophil# 0.03 X10^3/uL; Basophil% 0.2 % (0-1); Eosinophil# 0.19 X10^3/uL; Eosinophils% 1.6 % (0-5); Hematocrit 40.2 % (37-47); Hemoglobin 12.9 g/dl (12.0-15.0); Lymphocyte # 1.19 X10^3/ul (4.0); Lymphocyte % 9.8 % (19-41); Mean Corp Hgb Conc 32.1 g/gl (32-36); Mean Corpuscular Hgb 25.5 pg (27.0-32.0); Mean Corpuscular Volume 79.6 fL (81-99); Mean Platelet Vol. 11.5 fl (6.2-12.0); Monocyte# 1.04 X10^3/uL; Monocyte% 8.6 % (0-10); Neutrophil # 9.61 X10^3/uL (2.7-7.7); Platelet Count 211 K/mm3 (150-450); RBC Distribution Width CV 17.8 % (11.6-14.6); RBC Distribution Width SD 51.2 fl (35.1-43.9); Red Blood Count 5.05 M/mm3 (4.2-5.4); White Blood Count 12.2 K/mm3 (4.4-11.0)
[2018-08-31 10:05] LABS: Anion Gap 10 (5-15); BUN 21 mg/dL (7-18); BUN/Creat Ratio 21.5 RATIO (10-20); Calcium,Total 8.4 mg/dL (8.5-10.1); Chloride 100 mmol/L (98-107); Creatinine, Serum 0.98 mg/dL (0.55-1.02); EST Glomerular Filtration Rate 59 mL/min (>60); Est Glom Filt Rate - Afr Amer 71 mL/min (>60); Estimated Creatinine Clearance 37.43 ml/min; Glucose 113 mg/dL (74-106); Sodium Level 133 mmol/L (136-145)
--- NOTE | 2018-08-31 10:09 | ED.RN ---
Feeling SOB and anxious s/p ct scan. Place on NRB with labored resps, forced exp wheezes, and tachypnea. Spo2 96% on NRB. DR Nascimento at bedside, assessing pt.
[2018-08-31 10:10] LABS: Differential Indicated SCAN CRITERIA MET; POSITIVE COUNT NO; POSITIVE DIFFERENTIAL NO; POSITIVE MORPHOLOGY YES
[2018-08-31] MEDS: LORazepam 2 MG/ML Syringe 1 MG IV (10:21)
[2018-08-31] MEDS: MethylPREDNISolone 125 MG/2 ML Vial IV (10:21)
[2018-08-31] MEDS: Etomidate 20 MG/10 ML Vial IV (10:30)
[2018-08-31] MEDS: Succinylcholine Chloride 200 MG/10 ML Vial 50 MG IV (10:30)
[2018-08-31 10:32] LABS: BNP,B-Type NATRIURETIC PEPTIDE 923.6 pg/mL (0-100)
--- NOTE | 2018-08-31 10:34 | RAD_ITS ---
STUDY: X-RAY CHEST REASON FOR EXAM: Female, 73 years old. Intubated TECHNIQUE: AP COMPARISON: 08/26/2018 FINDINGS: Endotracheal tube has been placed with the tip projecting 2.8 cm above the gomez. Right jugular chest port is stable. Parenchymal infiltrates/atelectasis better seen on CT from earlier today. The pleural effusions evident on prior CT are not well seen and may be posterior layering on this exam. There is blunting of the right costophrenic angle more than left on current exam. Cardiac silhouette remains mildly enlarged. Normal mediastinum and cori. Normal visualized pulmonary arteries. There is atherosclerotic calcification of the aortic arch with tortuosity. 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 There is no demonstrated abnormality of the visualized soft tissue structures of the upper abdomen. RAD/CXR for Line Placement IMPRESSION: 1. Satisfactory position of endotracheal tube. 2. Pulmonary infiltrates/atelectasis, pleural effusions better seen on CT from earlier today. 3. Mild cardiac silhouette enlargement stable. Electronically Signed: Sánchez aCli MD at 11:15 EST , Service support ,
[2018-08-31 10:41] LABS: Platelet Estimate ADEQUATE (ADEQ); Red Cell Morphology N CYTIC NORMAL (NORM C&C)
[2018-08-31 10:42] LABS: Hypochromasia 1+
[2018-08-31] MEDS: Propofol 10MG/Ml 1,000 MG/100 ML Bottle 4.518 MG CONT INF (10:46)
[2018-08-31] MEDS: Ipratropium/Albuterol Sulfate 3 ML AMPUL.NEB INHALATION (11:05)
[2018-08-31] MEDS: fentaNYL 100 MCG/2 ML Ampul 50 MCG IV (11:29)
[2018-08-31 11:37] LABS: Allen Test POS; Base Excess -7 mmol/L (-2 to +2); Bicarbonate 20.7 mmol/L (22-26); Blood Gas Specimen Type ART; FI02 50; Mode A-C; O2 Delivery Device Vent; PEEP 8; PO2 120 mmHG (75-100); RR 12; SITE R Brachial; SO2 98 % (95-99); Time Given 1118; Total Carbon Dioxide 22 mmol/L; Vt 450; pCO2 48.3 mmHg (35-45); pH 7.24 (7.35-7.45)
[2018-08-31] MEDS: fentaNYL drip 100 ML 2.5 MCG IV (11:41)
--- NOTE | 2018-08-31 11:45 | ED.RN ---
(range time 1009-now) PT CONTINUED TO HAVE RESP DISTRESS AND ANXIETY. GIVEN ATIVAN AND SOLUMEDROL WITHOUT RELIEF. DR ARCOS CALLED TO BEDSIDE, PT THEN BECAME UNRESPONSIVE. GIVEN EPI IM. PREPARED FOR RSI PER VO FROM DR ARCOS. INTUBATED, PLEASE REVIEW CHARTING. PT NOW SEDATED, RESTING COMFORTABLY WITHOUT S/SX OF RESP DISTRESS. DOES HAVE PERSISTENT RHONCHI TO BILAT ANT JOHNSON.FAMILY AT BEDSIDE, UPDATED ON SITUATION.
[2018-08-31] MEDS: Ceftriaxone 1 GM/50 ML BAG IV (12:01)
[2018-08-31] MEDS: Midazolam 2 MG/2 ML Syringe IV (12:50)
--- NOTE | 2018-08-31 13:21 | ED.RN ---
REPORT CALLED TO RANULFO VILLEDA. TRANSPORTING PT TO ICU 01 AT THIS TIME
[2018-08-31] MEDS: Furosemide 20 MG/2 ML VIAL IV (15:41)
[2018-08-31] MEDS: Enoxaparin 40 MG/0.4 ML Syringe SC (15:44)
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
[2018-08-31] MEDS: Propofol 10MG/Ml 1,000 MG/100 ML Bottle 4.584 MG CONT INF (18:50)
[2018-08-31] MEDS: Chlorhexidine 15 ML PO (21:19)
[2018-08-31] MEDS: Famotidine 20 MG Tablet GT (21:19)
[2018-08-31] MEDS: fentaNYL drip 100 ML 5 MCG IV (23:44)
[2018-08-31] MEDS: 0.9% NaCl VAD Flush 10 ML IV (23:45)
[2018-09-01] VITALS (35 sets, daily range): BP systolic 126–177; BP diastolic 66–98; PULSE 76–107; RESP 12–28; TEMP 36.4–37.3; O2SAT 90–98
[2018-09-01] MEDS: CHLORHEXIDINE GLUC 2% CLOTH 1 EACH TOWELETTE TOPICAL (04:11)
[2018-09-01] MEDS: 0.9% NaCl VAD Flush 10 ML IV ×3 (04:11→23:44)
[2018-09-01 04:47] LABS: Absolute Lymphocyte Count 0.71 X10^3/ul (0.83-4.51); Absolute Neutrophil Count 12.5 X10^3/uL (2.0-7.7); Hematocrit 37.4 % (37-47); Hemoglobin 12.2 g/dl (12.0-15.0); Lymphocyte # 0.71 X10^3/ul (4.0); Mean Corp Hgb Conc 32.6 g/gl (32-36); Mean Corpuscular Hgb 25.8 pg (27.0-32.0); Mean Corpuscular Volume 79.1 fL (81-99); Mean Platelet Vol. 11.7 fl (6.2-12.0); Monocyte# 0.92 X10^3/uL; Monocyte% 6.5 % (0-10); Neutrophil # 12.52 X10^3/uL (2.7-7.7); Neutrophil % 88.1 % (47-70); Platelet Count 217 K/mm3 (150-450); RBC Distribution Width CV 17.6 % (11.6-14.6); RBC Distribution Width SD 49.9 fl (35.1-43.9); Red Blood Count 4.73 M/mm3 (4.2-5.4); White Blood Count 14.2 K/mm3 (4.4-11.0)
[2018-09-01 04:53] LABS: Anion Gap 14 (5-15); BUN 22 mg/dL (7-18); BUN/Creat Ratio 20.8 RATIO (10-20); Chloride 101 mmol/L (98-107); Creatinine, Serum 1.06 mg/dL (0.55-1.02); EST Glomerular Filtration Rate 54 mL/min (>60); Est Glom Filt Rate - Afr Amer 65 mL/min (>60); Glucose 118 mg/dL (74-106); Potassium 3.9 mmol/L (3.5-5.1); Sodium Level 136 mmol/L (136-145)
[2018-09-01 04:59] LABS: POSITIVE COUNT NO; POSITIVE DIFFERENTIAL NO; POSITIVE MORPHOLOGY NO
[2018-09-01 06:17] LABS: Allen Test POS; Base Excess -3 mmol/L (-2 to +2); Blood Gas Specimen Type ART; FI02 30; Mode CPAP PS; O2 Delivery Device Vent; PEEP 5; PO2 87 mmHG (75-100); PS 5; SITE L Radial; SO2 96 % (95-99); Time Given 605; Total Carbon Dioxide 23 mmol/L; pCO2 37.9 mmHg (35-45); pH 7.37 (7.35-7.45)
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
[2018-09-01] MEDS: 0.9% NaCl Peripheral Flush Adult/Peds IV (11:03)
[2018-09-01] MEDS: Enoxaparin 40 MG/0.4 ML Syringe SC (11:03)
--- NOTE | 2018-09-01 16:24 | NURSING ---
pt oxygen level drops while sleeping. Angelina from respiratory notified. venti-mask placed to see if this helps.
[2018-09-02] VITALS (21 sets, daily range): BP systolic 138–189; BP diastolic 70–112; PULSE 81–110; RESP 16–37; TEMP 36.2–36.9; O2SAT 92–100
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
[2018-09-02] MEDS: amLODIPine 5 MG Tablet PO (08:21)
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
[2018-09-02] MEDS: Enoxaparin 40 MG/0.4 ML Syringe SC (10:42)
[2018-09-02] MEDS: Lisinopril 5 MG Tablet PO (10:42)
--- NOTE | 2018-09-02 15:12 | NURSING ---
report called to [employer], to 125 per chair, ICU staff in attendance.
--- NOTE | 2018-09-02 15:32 | CASEMGMT ---
Patient does not have a Healthcare POA or Healthcare LW. She is not interested in documents. Maria D DUMONT MSW
[2018-09-02] MEDS: Albuterol 2.5 MG/3 ML VIAL.NEB. INHALATION (15:42)
[2018-09-03] VITALS (12 sets, daily range): BP systolic 139–169; BP diastolic 72–92; PULSE 93–108; RESP 16–24; TEMP 36.6–37.2; O2SAT 94–99
[2018-09-03 07:29] LABS: Hematocrit 40.4 % (37-47); Hemoglobin 12.7 g/dl (12.0-15.0); Mean Corp Hgb Conc 31.4 g/gl (32-36); Mean Corpuscular Hgb 25.5 pg (27.0-32.0); Mean Platelet Vol. 12.2 fl (6.2-12.0); Platelet Count 232 K/mm3 (150-450); RBC Distribution Width CV 18.5 % (11.6-14.6); RBC Distribution Width SD 53.3 fl (35.1-43.9); Red Blood Count 4.99 M/mm3 (4.2-5.4); Scan Indicated on CBC? Y/N NO; White Blood Count 11.7 K/mm3 (4.4-11.0)
[2018-09-03 07:47] LABS: Anion Gap 8 (5-15); BUN 19 mg/dL (7-18); BUN/Creat Ratio 22.6 RATIO (10-20); Calcium,Total 8.3 mg/dL (8.5-10.1); Chloride 100 mmol/L (98-107); Creatinine, Serum 0.84 mg/dL (0.55-1.02); EST Glomerular Filtration Rate 70 mL/min (>60); Est Glom Filt Rate - Afr Amer 85 mL/min (>60); Estimated Creatinine Clearance 43.67 ml/min; Glucose 88 mg/dL (74-106); Magnesium 2.2 mg/dL (1.6-2.6); Potassium 3.9 mmol/L (3.5-5.1); Sodium Level 135 mmol/L (136-145)
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
[2018-09-03] MEDS: Cephalexin 500 MG Capsule PO ×2 (11:49→21:53)
[2018-09-03] MEDS: Multivitamin (Healthy Eyes) Capsule 2 CAP PO (11:49)
[2018-09-03] MEDS: Vitamin B Comp W-C Capsule 1 CAP PO (11:49)
[2018-09-03] MEDS: prednisoLONE eye drops (5 mL) 1 DROP OPTH.BTL 1 DRP LEFT EYE (11:49)
[2018-09-03] MEDS: Acyclovir 200 MG Capsule PO (11:50)
[2018-09-04 02:39] VITALS: BP 140/85; PULSE 94; RESP 18; TEMP 36.9; O2SAT 97
[2018-09-04 03:00] VITALS: PULSE 88
[2018-09-04] MEDS: 0.9% NaCl Peripheral Flush Adult/Peds IV ×4 (05:20→12:09)
[2018-09-04 05:34] LABS: Hematocrit 37.6 % (37-47); Hemoglobin 12.2 g/dl (12.0-15.0); Mean Corp Hgb Conc 32.4 g/gl (32-36); Mean Corpuscular Hgb 26.2 pg (27.0-32.0); Mean Corpuscular Volume 80.9 fL (81-99); Mean Platelet Vol. 12.4 fl (6.2-12.0); Platelet Count 182 K/mm3 (150-450); RBC Distribution Width CV 18.1 % (11.6-14.6); RBC Distribution Width SD 52.4 fl (35.1-43.9); Red Blood Count 4.65 M/mm3 (4.2-5.4); White Blood Count 11.3 K/mm3 (4.4-11.0)
[2018-09-04 05:39] LABS: Scan Indicated on CBC? Y/N NO
[2018-09-04 05:44] LABS: Anion Gap 9 (5-15); BUN 17 mg/dL (7-18); BUN/Creat Ratio 18.8 RATIO (10-20); Calcium,Total 8.2 mg/dL (8.5-10.1); Chloride 100 mmol/L (98-107); Creatinine, Serum 0.91 mg/dL (0.55-1.02); EST Glomerular Filtration Rate 64 mL/min (>60); Est Glom Filt Rate - Afr Amer 78 mL/min (>60); Estimated Creatinine Clearance 40.31 ml/min; Glucose 88 mg/dL (74-106); Potassium 4.1 mmol/L (3.5-5.1); Sodium Level 138 mmol/L (136-145)
[2018-09-04 07:02] VITALS: PULSE 89
[2018-09-04] MEDS: 0.9% NaCl VAD Flush 10 ML IV (08:46)
[2018-09-04] MEDS: Aspirin E.C. 81 MG Tablet PO (08:48)
[2018-09-04] MEDS: Carvedilol 3.125 MG TABLET PO (08:48)
[2018-09-04] MEDS: Acyclovir 200 MG Capsule PO (08:48)
[2018-09-04] MEDS: Multivitamin (Healthy Eyes) Capsule 2 CAP PO (08:48)
[2018-09-04] MEDS: Cephalexin 500 MG Capsule PO (08:48)
[2018-09-04] MEDS: Vitamin B Comp W-C Capsule 1 CAP PO (08:49)
[2018-09-04 08:52] VITALS: BP 160/82; PULSE 97; RESP 16; TEMP 36.8; O2SAT 97
--- NOTE | 2018-09-04 09:21 | DCINST_ITS ---
- Discharge Diagnoses Current Active Problems: Current Active and Chronic Problems (Last Reviewed 08/26/18 @ 16:47 by Harish Trinidad DO) Respiratory failure (Acute) You will use the following diet at home:: Cardiac Allergies/Adverse Reactions: Allergies Iodinated Contrast- Oral and IV Dye [CT] Allergy (Verified 08/31/18 13:19) Anaphylaxis diphenhydramine [From Benadryl] Adverse Reaction (Verified 08/31/18 09:02) DIZZY procaine [From Novocain] Adverse Reaction (Verified 08/31/18 09:02) Other HEART RACES Medications to take at Discharge Ubidecarenone/Vitamin E [Co Q-10 50 mg Softgel] 1 each PO DAILY 06/22/16 Vitamin B Complex 1 each PO DAILY 06/22/16 Vitamin E (Dl,Tocopheryl Acet) [Vitamin E] 1,000 unit PO DAILY PRN 06/22/16 Cholecalciferol (Vitamin D3) [D3-2000] 2,000 unit PO QHS 09/13/16 Lysine [l-Lysine] 500 mg PO DAILY 11/09/16 Vit A/C/E AC/Znox/Cupric Oxide [Eye Vitamin-Minerals Tablet] 2 each PO DAILY 11/09/16 Lidocaine/Prilocaine [Lidocaine-Prilocaine Cream] 30 gm TP DAILY PRN PRN #1 cream..g. 04/16/17 Prednisolone Acet 1% Eye Drop 1 drop LEFT EYE QODAY 07/24/18 Valacyclovir HCl [Valacyclovir] 500 mg PO DAILY 07/24/18 Acetaminophen 500 mg PO Q4H PRN #1 tablet 08/27/18 Aspirin E.C. [Ecotrin] 81 mg PO DAILY@0800 tablet 08/27/18 Atorvastatin Calcium [Lipitor] 10 mg PO QHS #30 tablet 08/27/18 Carvedilol [Coreg (Beta Stuart)] 3.125 mg PO BID #60 tablet 08/27/18 Lisinopril [Zestril] 5 mg PO DAILY #30 tablet 08/27/18 Cephalexin [Keflex] 500 mg PO Q12 09/03/18 Furosemide [Lasix] 20 mg PO DAILY #30 tablet 09/04/18 The following prescriptions were given: Furosemide [Lasix] 20 mg PO DAILY #30 tablet Primary Care Physician: Dianne Wilson MD [Primary Care Provider] - Please follow up with your Primary Care Physician in: in 3-5 days Test Results: Test results from this visit will be discussed in further detail at your follow- up appointment, if applicable. Proposed Discharge Date: 09/04/18
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
--- NOTE | 2018-09-04 09:42 | CASEMGMT ---
Addendum entered by Lisa Garrison 09/04/18 10:51: Per Grant RN, pt did qualify for home oxygen at this time. Referral faxed to [facility] at this time and call placed to Cristin at [facility] to notify of referral, voices understanding. Hakeem ERNST CM Original Note: Therapy is recommending further skilled therapy for pt at this time. Pt is also still on oxygen at this time. This RN CM to room to discuss with pt at this time. Pt is agreeable to [facility] and states that she is homebound. Pt states no preference and states 'I have no idea, you just pick for me.' Pt also states no preference for [employer] if she qualifies for home oxygen at this time. Ivanna RN into room at this time to check pt. Dr. Valenzuela aware of all at this time, voices understanding. Call to Velia at [facility] and referral given at this time. Order placed in [facility] at this time for RN, PT/OT. Pt does get anxious at times when discussing need for home oxygen. Hakeem ERNST CM
[2018-09-04 10:36] VITALS: O2SAT 84; O2SAT 92; O2SAT 94
[2018-09-04 11:16] VITALS: PULSE 93
--- NOTE | 2018-09-05 14:50 | CASEMGMT ---
SUJATA NGUYỄN Discharge Follow-Up Phone Call. Lace:??13? Strata: 4 Discharge Date: 09/04/18 Adm Dx:?? Resp Failure, CHF Call to pt to inquire about how?she? has been doing since being discharged from the hospital.? Pt states I'm still weak but I am getting around. Pt states [facility] has contacted her and they are planning on coming to see her tomorrow 09/06. Pt inquiring about when/if she needs to wear the Oxygen, as she states that it is uncomfortable and she does not like wearing it. Pt states that she does have a pulse ox to monitor her oxygen level. SUJATA NGUYỄN advised her to wear it if her oxygen level is below 92% and as needed for comfort. Informed pt that were testing completed @ [facility], that she was requiring the oxygen mostly when she was ambulating/with activity. Pt voices understanding. Pt states she is aware of the appt with Dr Wilson on 09/09 and was made aware the time of the appt, listed as 1320 on the Follow up appt sheet, is time and that her appt is 1:20 PM. Pt voices understanding. Pt states her son was able to moss picker the new prescription for Lasix and she denies having any questions about her medications or d/c instructions. SUJATA NGUYỄN thanked pt for choosing [facility]. Keagan BHAT RN, CM
== END 2018-09-04 13:45 | disposition home health service (06) | DRG 208 ==
LOC: ED 09:52 → ICU 13:15 → PCU 09-03 10:14
PROVIDERS: Admitting Provider Family Medicine; Emergency Provider Emergency Medicine; Family Provider Internal Medicine; PCP Internal Medicine; Visit Provider Internal Medicine
DX: J96.01 Acute respiratory failure with hypoxia (principal); I50.23 Acute on chronic systolic (congestive) heart failure; C79.9 Secondary malignant neoplasm of unspecified site; I24.8 Other forms of acute ischemic heart disease; I11.0 Hypertensive heart disease with heart failure; C55 Malignant neoplasm of uterus, part unspecified; E78.5 Hyperlipidemia, unspecified; N32.9 Bladder disorder, unspecified; H91.90 Unspecified hearing loss, unspecified ear; Z77.22 Contact with and (suspected) exposure to environmental tobacco smoke (acute) (chronic); Z90.5 Acquired absence of kidney; S02.31XD Fracture of orbital floor, right side, subsequent encounter for fracture with routine healing; Z90.79 Acquired absence of other genital organ(s); Z90.722 Acquired absence of ovaries, bilateral; Z79.899 Other long term (current) drug therapy; S01.111D Laceration without foreign body of right eyelid and periocular area, subsequent encounter; S62.101D Fracture of unspecified carpal bone, right wrist, subsequent encounter for fracture with routine healing; Z90.710 Acquired absence of both cervix and uterus; V89.2XXD Person injured in unspecified motor-vehicle accident, traffic, subsequent encounter; Z86.018 Personal history of other benign neoplasm
CPT/HCPCS: 31500; 31720; 36415; 36591; 36600; 51702; 71045; 71275; 80048; 82803; 83735; 83880; 84484; 85025; 85027; 87040; 87070; 87205; 93005; 94002; 94003; 94640; 94660; 94770; 95831; 97116; 97163; 97166; 97530; 97535; 97802; 99251; 99285; J7040; Q9967; A4216; G0463; J1940

== ENCOUNTER → 2018-09-18 08:28 | Outpatient (CLI) | payer MEDICARE, OTHER, SELFPAY ==
[2018-08-31 13:56] VITALS: BMI 31.8
--- NOTE | 2018-09-17 09:45 | BLA_PTH ---
PATIENT: KYLAH WILCOX LOC: [facility] U#:[id number] AGE/SX: 80/F ROOM: RE09/18/[address]: Dr. Kranthi Walker MD : 1945 BED: DIS: SPEC #: [id number] RECD: 09/18/18 09:39 STATUS: SHAI DAMIAN #: [id number] MANNY: 09/17/18 09:[address]: Kranthi Walker DEPT: SURGICAL PATHOLOGY RECD BY: Gabino Padilla ENTERED: 09/18/18 09:40 SP TYPE: BLADDER BX OTHR DR: Dr. 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 SJ:nigel 09/19/18 COMMENT Case has been reviewed in consultation with Dr. Tejeda who concurs with the above diagnosis. IDC:CE MICROSCOPIC DESCRIPTION Slides are reviewed. GROSS DESCRIPTION Received in fixative is one container labeled with the patient's name and designated bladder biopsy. The specimen consists of one irregular fragment of andrade-brown soft tissue that measures 0.2 x 0.1 x 0.1 cm. The specimen is totally submitted in one cassette. / CE:rg 09/18/18 TC:0 CPT: 23446
--- NOTE | 2018-09-17 09:45 | BLA_PTH ---
PATIENT: KYLAH WILCOX LOC: [facility] U#:[id number] AGE/SX: 80/F ROOM: RE09/18/[address]: Dr. Kranthi Walker MD : 1945 BED: DIS: SPEC #: [id number] RECD: 09/18/18 09:39 STATUS: SHAI DAMIAN #: [id number] MANNY: 09/17/18 09:[address]: Kranthi Walker DEPT: SURGICAL PATHOLOGY RECD BY: Gabino Padilla ENTERED: 09/18/18 09:40 SP TYPE: BLADDER BX OTHR DR: Dr. Dianne Wilson MD Tissues: Urinary bladder, NOS Procedures: Surgery Specimen Level IV HEADER OPERATION: Bladder biopsy PRE-OP DIAGNOSIS: Bladder CA TISSUE SUBMITTED: Bladder biopsy MICROSCOPIC DIAGNOSIS Bladder, biopsy: Poorly differentiated invasive carcinoma, favor adenocarcinoma. See comment. SJ:nigel 09/19/18 SJ:nigel 10/09/18 COMMENT The slides of this specimen are reviewed again along with recent specimen [id number] bladder tumor and previous specimen [id number] the tumor in the all three specimen have similar morphologic features. This case has been reviewed in consultation with Dr. Abernathy who concurs with the above diagnosis. MICROSCOPIC DESCRIPTION Slides are reviewed. GROSS DESCRIPTION Received in fixative is one container labeled with the patient's name and designated bladder biopsy. The specimen consists of one irregular fragment of andrade-brown soft tissue that measures 0.2 x 0.1 x 0.1 cm. The specimen is totally submitted in one cassette. / CE:nigel 09/18/18 TC:0 CPT: 71663
== END ==
PROVIDERS: Family Provider Internal Medicine; PCP Internal Medicine; Referring Provider Urology; Visit Provider Urology
DX: C67.9 Malignant neoplasm of bladder, unspecified (principal)
CPT/HCPCS: 88305

== ENCOUNTER 2018-10-04 14:14 | Day surgery (SDC) | payer MEDICARE, OTHER, SELFPAY ==
[2018-09-23 17:01] VITALS: BMI 30.5
[2018-09-27 09:56] VITALS: BMI 30.7
[2018-10-04] VITALS (7 sets, daily range): BP systolic 137–161; BP diastolic 63–78; PULSE 89–90; RESP 16–18; TEMP 36.7–37; O2SAT 96–100; BMI 31.6
--- NOTE | 2018-10-04 | BLA_PTH ---
PATIENT: KYLAH WILCOX LOC: [facility] U#:[id number] AGE/SX: 73/F ROOM: RE10/04/[address]: Dr. Kranthi Walker MD : 1945 BED: DIS: 10/04/2018 SPEC #: [id number] RECD: 10/04/18 16:22 STATUS: SHAI REMartinez #: [id number] MANNY: 10/04/18 00:[address]: Kranthi Walker DEPT: SURGICAL PATHOLOGY RECD BY: Kyung Falk ENTERED: 10/07/18 09:13 SP TYPE: BLADDER BX OTHR DR: MD Dr. Gisselle Sethi DO Tissues: Urinary bladder, NOS Procedures: Surgery Specimen Level V HEADER OPERATION: Cysto, transurethral resection bladder tumor, [employer] PRE-OP DIAGNOSIS: Bladder tumor TISSUE SUBMITTED: Bladder tumor MICROSCOPIC DIAGNOSIS Bladder tumor, TUR: Poorly differentiated invasive adenocarcinoma with papillary features. See comment. CHOCO:nigel 10/09/18 COMMENT The immunohistochemistry ([id number]) supports the above diagnosis and favor metastatic carcinoma, consistent with endometrial primary. Please make reference to previous specimen ([id number]) endometrium, biopsy with diagnosis of endometrial adenocarcinoma, endometrioid type with focal papillary features and also the revised diagnosis on ([id number]) bladder, biopsy with diagnosis of poorly differentiated invasive carcinoma. The slides are reviewed again. The tumor in the previous two specimens and this specimen show similar morphologic features. Clinical correlation and appropriate follow up are necessary. Case has been reviewed in consultation with Dr. Abernathy who concurs with the above diagnosis. IDC:AM MICROSCOPIC DESCRIPTION Slides are reviewed. GROSS DESCRIPTION Received in fixative is one container labeled with the patient's name and designated bladder tumor. The specimen consists of multiple irregular fragments of andrade-brown soft tissue that in aggregate measure 2.5 x 1.2 x 0.3 cm. The specimen is totally submitted in one cassette. / CHOCO:nigel 10/07/18 TC:0 CPT: 73396
--- NOTE | 2018-10-04 | IMM_PTH ---
PATIENT: KYLAH WILCOX [place] [facility] [place][id number] AGE/SX: 73/F ROOM: RE10/04/[address]: Dr. Kranthi Walker MD : 1945 BED: DIS: 10/04/2018 SPEC #: [id number] RECD: 10/08/18 10:07 STATUS: SHAI REQ #: [id number] MANNY: 10/04/18 00:[address]: Kranthi Walker DEPT: IMMUNOHISTOCHEMISTRY RECD BY: Amy Edwards ENTERED: 10/08/18 10:08 SP TYPE: IMMUNO OTHR DR: MD Dr. Gisselle Sethi DO Tissues: Urinary bladder, NOS Procedures: RCC (add) NAPSIN A (add) CK20 (add) CK5-6 (add) CK7 (add) CK8 (add) E-CAD (add) HEP PAR (add) HER2 KENNETH (add) KI-67 (add) MAMM (add) IA (add) TTF1 (add) Vimentin (add) GATA3 (add) P40 (add) CD44 (add) ER (initial) PHYSICIAN & INSTITUTION [place] [id number] SPECIMEN INFORMATION: Tissue Source: Bladder tumor Clinical Info: Bladder tumor Specimen Number: [id number] CPT code: 49285, 04540 x17 METHODOLOGY: Deparaffinized sections of prefer/formalin-fixed tissue or PAP/DQ stained slides are incubated with monoclonal/polyclonal antibodies/oligonucleotide probes. Localization is made via biotin free immunoperoxidase method. Appropriate controls are performed and reacted as expected. Results on target cell population are indicated in the following table: RESULTS: ANTIBODY / CLONE RESULT ER (6F11) positive, rare cells IA (1E2) negative Her-2neu (CB11) negative (1+) E-Cad (ECH-6) positive Mammaglobin (31A5) negative GATA3 (L50-823) negative Vimentin (V9) negative CK7 (OV-TL12/30) positive CK8 (85tofkO18) positive CK20 (KS20.8) negative TTF-1 (8G7G3/1) negative Napsin A (Rabbit Polyclonal) negative HepPar (OCh1E5) negative RCC (PN-15) negative CK5-6 (D5 & 1684) positive, focal Ki-67 (30-9) negative, high anti-CD44 (SP37) negative P40 (BC28) negative These tests were developed and their performance characteristics determined by [facility]. They may not have been cleared or approved by the U.S. Food and Drug Administration. The FDA has determined that such clearance or approval is not necessary. INTERPRETATION: Urinary bladder tumor, transurethral resection: Poorly differentiated invasive adenocarcinoma with papillary features. See comment. SJ:nigel 10/09/18 Comment: IHC profile favors metastatic carcinoma, consistent with endometrial primary. Case has been reviewed in consultation with Dr. Abernathy who concurs with the above diagnosis. IDC:AM
--- NOTE | 2018-10-04 14:21 | EKG12_ITS ---
Test Reason : PRE OP Blood Pressure : / mmHG Vent. Rate : 092 BPM Atrial Rate : 092 BPM P-R Int : 180 ms QRS Dur : 076 ms QT Int : 382 ms P-R-T Axes : 061 013 072 degrees QTc Int : 472 ms Normal sinus rhythm Nonspecific T wave abnormality Prolonged QT Abnormal ECG Confirmed by OWEN JOSEPH, AILEEN ([id number]), video news editor HARDIK MEZA ([id number]) on 10/09/2018 1:25:09 PM Referred By: Kranthi Walker Confirmed By:AILEEN WEAVER MD
[2018-10-04 15:00] LABS: Absolute Lymphocyte Count 2.11 X10^3/ul (0.83-4.51); Absolute Neutrophil Count 6.5 X10^3/uL (2.0-7.7); Basophil# 0.05 X10^3/uL; Basophil% 0.5 % (0-1); Eosinophil# 0.26 X10^3/uL; Eosinophils% 2.6 % (0-5); Hematocrit 37.8 % (37-47); Hemoglobin 11.7 g/dl (12.0-15.0); Lymphocyte # 2.11 X10^3/ul (4.0); Mean Corpuscular Hgb 25.4 pg (27.0-32.0); Monocyte# 1.11 X10^3/uL; Neutrophil # 6.48 X10^3/uL (2.7-7.7); Neutrophil % 64.4 % (47-70); Platelet Count 67 K/mm3 (150-450); RBC Distribution Width CV 17.8 % (11.6-14.6); RBC Distribution Width SD 53.3 fl (35.1-43.9); Red Blood Count 4.61 M/mm3 (4.2-5.4); White Blood Count 10.1 K/mm3 (4.4-11.0)
[2018-10-04 15:03] LABS: Differential Indicated SCAN CRITERIA MET; POSITIVE COUNT NO; POSITIVE DIFFERENTIAL NO; POSITIVE MORPHOLOGY YES
--- NOTE | 2018-10-04 15:08 | PCM.HP.BLA ---
History and Physical Date of Admission: 10/04/18 73 yo female seeing oncology on recent ct scan concern for nodule in the bladder no gross hematuria, no symptoms ct scan reviewed. 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 Tobacco Use Assessment Completed: Used Smokeless in last 30 days? Smoking cessation counseling was provided. Does not use smokeless tobacco. Has never drank. Does not use drugs. Does not drink caffeine. Has had a blood transfusion. VITAL SIGNS: 09/17/2018 09:59 AM Weight 135 lb / 61.23 kg Height 60 in / 152.4 cm BP 140/72 mmHg BMI 26.4 kg/m? - BMI Counseling was provided. PHYSICAL EXAMINATION: External Genitalia: No hirsutism, no rash, no scarring, no cyst, no erythematous lesion, no papular lesion, no blanched lesion, no warty lesion. No edema. Urethral Meatus: Normal size. Normal position. No discharge. Urethra: No tenderness, no mass, no scarring. No hypermobility. No leakage. Bladder: Normal to palpation, no tenderness, no mass, normal size. MULTI-SYSTEM PHYSICAL EXAMINATION: Constitutional: Well-nourished. No physical deformities. Normally developed. Good grooming. Neck: Neck symmetrical, not swollen. Normal tracheal position. Respiratory: No labored breathing, no use of accessory muscles. Cardiovascular: Normal temperature, normal extremity pulses, no swelling, no varicosities. Lymphatic: No enlargement of neck, axillae, groin. Skin: No paleness, no jaundice, no cyanosis. No lesion, no ulcer, no rash. Neurologic / Psychiatric: Oriented to time, oriented to place, oriented to person. No depression, no anxiety, no agitation. Gastrointestinal: Obese abdomen. Clean, dry incision, well healed incision. No mass, no tenderness, no rigidity. Eyes: Normal conjunctivae. Normal eyelids. Ears, Nose, Mouth, and Throat: Left ear no scars, no lesions, no masses. Right ear no scars, no lesions, no masses. Nose no scars, no lesions, no masses. Normal hearing. Normal lips. Musculoskeletal: Normal gait and station of head and neck. PAST DATA REVIEWED: Source Of History: Patient PROCEDURES: Cysto Bladder Biopsy w/Fulguration - 90572 Risks, benefits, and some of the potential complications of the procedure were discussed at length with the patient including infection, bleeding, voiding discomfort, urinary retention, fever, chills, sepsis, and others. All questions were answered. Informed consent was obtained. Antibiotic prophylaxis was given. Sterile technique and intraurethral analgesia were used. Meatus: Normal size. Normal location. Normal condition. Urethra: No hypermobility. No leakage. Ureteral Orifices: Normal location. Normal size. Normal shape. Effluxed clear urine. Bladder: 1 cm tumor. Solitary tumor. No trabeculation. Normal mucosa. No stones. Bladder biopsies were performed and the sites were fulgurated The lower urinary tract was carefully examined. The procedure was well-tolerated and without complications. Antibiotic instructions were given. Instructions were given to call the office immediately for bloody urine, difficulty urinating, urinary retention, painful or frequent urination, fever, chills, nausea, vomiting or other illness. The patient stated that she understood these instructions and would comply with them. Urinalysis - 08136 Dipstick Dipstick Cont'd Specimen: Voided Blood: Neg Appearance: Clear pH: 5.0 Color: Yellow Protein: Neg Glucose: Normal Urobilinogen: Neg Bilirubin: Neg Nitrites: Neg Ketones: Neg Leukocyte Esterase: Neg ASSESSMENT: ICD-10 Details 1 : Neoplasm of uncertain behavior of bladder - D41.4 2 Abnormal radiologic findings on diagnostic imaging of renal pelvis, ureter, or bladder - R93.41 PLAN: Schedule Return Visit/Planned Activity: 2 Weeks - Office Visit Document Letter(s): Created for Patient: Clinical Summary Biopsy in the office ++ for Transitional cell carcinoma of the bladder will set her up for TURBT and mitomycin C in the OR.
[2018-10-04 15:20] LABS: Anion Gap 5 (5-15); BUN 20 mg/dL (7-18); BUN/Creat Ratio 17.5 RATIO (10-20); Calcium,Total 8.3 mg/dL (8.5-10.1); Chloride 98 mmol/L (98-107); Creatinine, Serum 1.14 mg/dL (0.55-1.02); EST Glomerular Filtration Rate 49 mL/min (>60); Est Glom Filt Rate - Afr Amer 60 mL/min (>60); Estimated Creatinine Clearance 30.63 ml/min; Glucose 91 mg/dL (74-106); Potassium 3.9 mmol/L (3.5-5.1); Sodium Level 134 mmol/L (136-145)
--- NOTE | 2018-10-04 15:30 | DCINST_ITS ---
Discharge Diet: Light diet - advance as tolerated Discharge Activity: Return to Normal Activity Allergies/Adverse Reactions: Allergies Iodinated Contrast- Oral and IV Dye [CT] Allergy (Verified 10/04/18 14:56) Anaphylaxis diphenhydramine [From Benadryl] Adverse Reaction (Verified 10/04/18 14:56) DIZZY procaine [From Novocain] Adverse Reaction (Verified 10/04/18 14:56) Other HEART RACES Medications to take at Discharge Ubidecarenone/Vitamin E [Co Q-10 50 mg Softgel] 1 ea PO DAILY 06/22/16 Vitamin B Complex 1 ea PO DAILY 06/22/16 Vitamin E (Dl,Tocopheryl Acet) [Vitamin E] 1,000 unit PO DAILY PRN 06/22/16 Cholecalciferol (Vitamin D3) [D3-2000] 2,000 unit PO QHS 09/13/16 Lysine [l-Lysine] 500 mg PO DAILY 11/09/16 Vit A/C/E AC/Znox/Cupric Oxide [Eye Vitamin-Minerals Tablet] 2 ea PO DAILY 11/09/16 Lidocaine/Prilocaine [Lidocaine-Prilocaine Cream] 30 gm TP DAILY PRN PRN #1 cream..g. 04/16/17 Prednisolone Acet 1% Eye Drop 1 drp LEFT EYE QODAY 07/24/18 Aspirin E.C. [Ecotrin] 81 mg PO DAILY@0800 tab 08/27/18 Tamoxifen Citrate [Nolvadex] 20 mg PO BID #60 tab 09/23/18 carvedilol 6.25 mg tablet 6.25 mg PO BID #180 tab 09/27/18 furosemide 40 mg tablet 40 mg PO DAILY #90 tab 09/27/18 losartan 50 mg tablet 50 mg PO DAILY #90 tab 09/27/18 Ciprofloxacin [Cipro] 500 mg PO BID #6 tablet 10/04/18 The following prescriptions were given: Ciprofloxacin [Cipro] 500 mg PO BID #6 tablet Orders to be completed after discharge: CBC W/Diff, Automated Time Frame: 10/04/18, Location: Laboratory Primary Care Physician: Dianne Wilson MD [Primary Care Provider] - Test Results: Test results from this visit will be discussed in further detail at your follow- up appointment, if applicable. Please Follow Up With: Kranthi Walker MD When: in 2 weeks, please call to make an appointment.
[2018-10-04] MEDS: Lidocaine Jelly 2% 20 ML Syringe (URO-JET) 20 APPLIC (15:32)
[2018-10-04] MEDS: Cefazolin 2 GM in 0.9% Normal Saline 100 ML IV (15:32)
[2018-10-04 15:47] LABS: Platelet Estimate MOD DEC (ADEQ); Platelet Morphology LARGE; Red Cell Morphology NORM C+C NORMAL (NORM C&C)
--- NOTE | 2018-10-04 15:55 | OP.PCM_ITS ---
Report of Operation Date of Procedure: 10/04/18 Pre-Operative Diagnosis: Bladder tumor Post-Operative Diagnosis: Bladder tumor transitional cell carcinoma Surgery/Procedure Performed:: Transurethral resection of a bladder tumor Description of Surgical Findings:: 73-year-old female was taken back to the operating room at the smooth induction of general anesthesia he was placed supine on the table the urethra and vaginal area were prepped and draped in usual sterile fashion went into the bladder with a 24 Sudanese noncontinuous flow bipolar resectoscope she had an obvious tumor emanating from the posterior lateral wall the bladder I started resecting this tumor got down to the muscle fibers were dissected deeper and then cauterized the base extensively appear to be an invasive tumor could either be a metastatic site or primary invasive bladder cancer. After resecting this tumor it was about 2.5 cm in size the specimen was then handed off to the nurse extensively cauterized the base was no bleeding I then placed mitomycin-C into the bladder 40 mg of 40 cc of mitomycin-C the bladder taken back to PACU in good condition the rest of the bladder was clear of tumor the trigone was clear the urethra was clear just the one site had a large invasive looking tumor. Type of Anesthesia:: General Special Medications: mitomycin C Drains: none - Admit VTE Documentation VTE Present on Admission: No VTE Mechan Device Prophylaxis: SCD's
[2018-10-04] MEDS: Ketorolac 15 MG/ML Vial IV (16:32)
== END 2018-10-04 18:04 | disposition home or self-care (01) ==
LOC: SDC 14:15 → AC 14:17
PROVIDERS: Anesthesiology; Family Provider Internal Medicine; PCP Internal Medicine; Referring Provider Urology; Visit Provider Urology
PROC: 0TBB8ZZ Excision of Bladder, Via Natural or Artificial Opening Endoscopic (ICD-10-PCS; CPT 52235; principal; 2018-10-04 16:15)
DX: C67.2 Malignant neoplasm of lateral wall of bladder (principal); C67.4 Malignant neoplasm of posterior wall of bladder; Z85.42 Personal history of malignant neoplasm of other parts of uterus; I25.10 Atherosclerotic heart disease of native coronary artery without angina pectoris; I10 Essential (primary) hypertension; Z90.5 Acquired absence of kidney; Z99.81 Dependence on supplemental oxygen; Z79.82 Long term (current) use of aspirin; Z79.899 Other long term (current) drug therapy
CPT/HCPCS: 52235; 80048; 85025; 88305; 88307; 88341; 88342; 93005; J7120; A4216; J2405; J3490; J9280

== ENCOUNTER 2018-11-19 11:00 | Emergency (ER) | payer MEDICARE, OTHER, SELFPAY ==
[2018-10-22 14:38] VITALS: BMI 29.4
[2018-11-19 11:01] VITALS: BP 200/148; PULSE 103; RESP 28; TEMP 36.6; O2SAT 94; BMI 32.5
--- NOTE | 2018-11-19 11:25 | CT_ITS ---
STUDY: CT BRAIN WITHOUT CONTRAST REASON FOR EXAM: Female, 73 years old. Status post fall RADIATION DOSAGE (If Supplied By Facility): CTDIvol = ( 44.99 ) mGy, DLP = ( 711.75 ) mGycm TECHNIQUE: Transaxial CT imaging of the brain was performed without administration of intravenous contrast material. Individualized dose optimization techniques were used for this CT. COMPARISON: August 26, 2018 FINDINGS: Scalp hematoma and swelling along the left frontoparietal bone. Normal calvarium. There is mild cerebral atrophy with widening of the extra-axial spaces and ventricular dilatation. There are areas of decreased attenuation within the white matter tracts of the supratentorial brain, consistent with microvascular disease changes. Normal basal ganglia and thalami. Normal brainstem. Normal cerebellum. Development of a small amount of subarachnoid hemorrhage involving the right posterior temporoparietal lobe. An additional area of subarachnoid hemorrhage seen in the left temporal lobe. No evidence of epidural or subdural hemorrhage. There are no findings of an acute ischemic infarction. No evidence of mass effect or midline shift. Normal visualized paranasal sinuses. CT/Brain/Head without Contrast IMPRESSION: Small areas of subarachnoid hemorrhage noted, within the right posterior temporoparietal lobe as well as the left temporal lobe. No mass effect or midline shift. N.B. : The above information has been verbally conveyed by James Begum DO to [phone], on 11/19/2018 12:49:45 (ET). Electronically Signed: James Begum DO at 12:50 EDT Tel , Service support ,
--- NOTE | 2018-11-19 11:25 | EKG12_ITS ---
Test Reason : Blood Pressure : / mmHG Vent. Rate : 102 BPM Atrial Rate : 102 BPM P-R Int : 164 ms QRS Dur : 076 ms QT Int : 332 ms P-R-T Axes : 041 000 025 degrees QTc Int : 432 ms Sinus tachycardia Low voltage QRS Cannot rule out Anterior infarct , age undetermined Abnormal ECG Confirmed by MELITA JOSEPH, CHRISSY ([id number]), index editor ISABELLA BENOIT ([id number]) on 11/21/2018 9:30:16 AM Referred By: TANYA Confirmed By:CHRISSY HUA MD
--- NOTE | 2018-11-19 11:26 | CT_ITS ---
STUDY: CT CERVICAL SPINE WITHOUT CONTRAST REASON FOR EXAM: Female, 73 years old. Status post multiple falls RADIATION DOSAGE (If Supplied By Facility): CTDIvol = ( 12.30 ) mGy, DLP = ( 208.34 ) mGycm TECHNIQUE: High resolution transaxial imaging was performed without contrast material. Sagittal and coronal images were reconstructed. Individualized dose optimization techniques were used for this CT. COMPARISON: None FINDINGS: Normal craniovertebral junction. Normal anterior atlantoaxial articulation. Normal odontoid process. Normal cervical lordosis. Normal vertebral bodies and posterior osseous elements. Diffuse sclerotic metastasis throughout the osseous structures No evidence of acute fracture or listhesis. Normal vertebral body heights. Mild multilevel degenerative disc disease without critical central canal stenosis Normal visualized soft tissue structures. CT/Spine Cervical without Contras IMPRESSION: No acute osseous findings. Degenerative changes. Diffuse osseous sclerotic metastatic disease Electronically Signed: James Begum DO at 12:31 EDT Tel , Service support ,
--- NOTE | 2018-11-19 11:26 | CT_ITS ---
STUDY: CT FACIAL BONES WITHOUT CONTRAST REASON FOR EXAM: Female, 73 years old. Multiple falls RADIATION DOSAGE (If Supplied By Facility): CTDIvol = ( 29.38 ) mGy, DLP = ( 525.42 ) mGycm TECHNIQUE: The patient was scanned in a multi detector CT scanner. Sagittal and coronal images were reconstructed. Individualized dose optimization techniques were used for this CT. COMPARISON: August 26, 2018 FINDINGS: Swelling overlying the left temporal region as well as the left cheek. Normal orbital hassan and orbital contents. Normal nasal bones and anterior nasal spine. Normal facial bones. There is no demonstrated fracture. Normal visualized paranasal sinuses. CT/Sinus/Facial Bone IMPRESSION: No evidence of acute osseous injury. Left-sided facial soft tissue swelling Electronically Signed: James Begum DO at 12:27 EDT Tel , Service support ,
--- NOTE | 2018-11-19 12:13 | RAD_ITS ---
STUDY: X-RAY CHEST REASON FOR EXAM: Female, 73 years old. Dizziness. History of uterine carcinoma TECHNIQUE: Single AP portable view of the chest. COMPARISON: August 31, 2018 FINDINGS: Stable right chest wall Mediport Stable hyperinflated lungs with flattened hemidiaphragms. Continued chronic scarring in the lung bases with development of moderate left pleural effusion. Stable small right effusion. No pneumothorax. Diffuse osseous metastatic sclerotic lesions. Stable mild cardiomegaly RAD/Chest 1 View (Portable) IMPRESSION: Development of left effusion. Continued chronic scarring in the lung bases. Osseous metastasis Electronically Signed: James Begum DO at 12:32 EDT Tel , Service support ,
[2018-11-19 12:18] LABS: Absolute Lymphocyte Count 1.47 X10^3/ul (0.83-4.51); Absolute Neutrophil Count 7.4 X10^3/uL (2.0-7.7); Basophil# 0.03 X10^3/uL; Basophil% 0.3 % (0-1); Eosinophil# 0.24 X10^3/uL; Eosinophils% 2.3 % (0-5); Hematocrit 33.7 % (37-47); Hemoglobin 10.8 g/dl (12.0-15.0); Lymphocyte # 1.47 X10^3/ul (4.0); Lymphocyte % 14.2 % (19-41); Mean Corpuscular Hgb 26.7 pg (27.0-32.0); Mean Corpuscular Volume 83.4 fL (81-99); Monocyte# 1.09 X10^3/uL; Monocyte% 10.5 % (0-10); Neutrophil # 7.42 X10^3/uL (2.7-7.7); Neutrophil % 71.6 % (47-70); RBC Distribution Width CV 18.9 % (11.6-14.6); RBC Distribution Width SD 57.5 fl (35.1-43.9); Red Blood Count 4.04 M/mm3 (4.2-5.4); White Blood Count 10.4 K/mm3 (4.4-11.0)
[2018-11-19 12:21] LABS: Differential Indicated SCAN CRITERIA MET; POSITIVE COUNT YES; POSITIVE DIFFERENTIAL NO; POSITIVE MORPHOLOGY YES; Platelet Count 25 K/mm3 (150-450)
--- NOTE | 2018-11-19 12:22 | ED.RN ---
plt 25 called from the lab. dr wakefield
[2018-11-19 12:30] VITALS: BP 183/89; PULSE 94; RESP 24; O2SAT 97
[2018-11-19 12:37] LABS: Anion Gap 3 (5-15); BUN 16 mg/dL (7-18); BUN/Creat Ratio 16.8 RATIO (10-20); Calcium,Total 8.3 mg/dL (8.5-10.1); Chloride 101 mmol/L (98-107); Creatinine, Serum 0.95 mg/dL (0.55-1.02); EST Glomerular Filtration Rate 61 mL/min (>60); Est Glom Filt Rate - Afr Amer 74 mL/min (>60); Estimated Creatinine Clearance 36.75 ml/min; Glucose 169 mg/dL (74-106); Potassium 4.3 mmol/L (3.5-5.1); Sodium Level 135 mmol/L (136-145)
[2018-11-19 12:54] LABS: Differential Comment SCANNED; Platelet Estimate MKD DEC (ADEQ); Platelet Morphology LARGE
--- NOTE | 2018-11-19 13:08 | NURSING ---
CALLED [facility] FOR TRANSFER
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
[2018-11-19 13:22] LABS: International Normalized Ratio 1.2
[2018-11-19 13:23] LABS: Partial Thromboplast Time 39.8 Seconds (24.1-36.2)
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
[2018-11-19 13:43] VITALS: BP 171/109; PULSE 98; RESP 18; O2SAT 97
[2018-11-21 09:24] LABS: Pathologist Review Reviewed
== END 2018-11-19 14:12 | disposition short-term general hospital (02) ==
PROVIDERS: Emergency Provider Emergency Medicine; Family Provider Internal Medicine; PCP Internal Medicine
DX: S06.6X0A Traumatic subarachnoid hemorrhage without loss of consciousness, initial encounter (principal); W18.39XA Other fall on same level, initial encounter; Y93.89 Activity, other specified; Y92.009 Unspecified place in unspecified non-institutional (private) residence as the place of occurrence of the external cause; R55 Syncope and collapse; D69.6 Thrombocytopenia, unspecified; Z85.42 Personal history of malignant neoplasm of other parts of uterus; I25.2 Old myocardial infarction; Z79.82 Long term (current) use of aspirin
CPT/HCPCS: 36591; 70450; 70486; 71045; 72125; 80048; 84484; 85025; 85610; 85730; 86850; 86900; 93005; 99285; A4216

== ENCOUNTER 2019-01-26 17:51 | Observation (INO) | payer MEDICARE, OTHER, SELFPAY ==
[2018-12-18 14:47] VITALS: BMI 28.0
[2019-01-26] VITALS (8 sets, daily range): BP systolic 131–164; BP diastolic 58–84; PULSE 76–121; RESP 18–22; TEMP 36.7; O2SAT 93–97; BMI 29.2; BMI 28.7
--- NOTE | 2019-01-26 18:23 | CT_ITS ---
STUDY: CT CERVICAL SPINE WITHOUT CONTRAST REASON FOR EXAM: Female, 73 years old. Fall. RADIATION DOSAGE (If Supplied By Facility): CTDIvol = ( 21.07 ) mGy, DLP = ( 469.55 ) mGycm TECHNIQUE: High resolution transaxial imaging was performed without contrast material. Sagittal and coronal images were reconstructed. Individualized dose optimization techniques were used for this CT. COMPARISON: 11/19/2018 FINDINGS: Widespread blastic metastatic disease is seen, worse than prior study. No definite acute fracture/dislocation. The cervical junction is intact. C1-C2 articulation is intact. Curvature is within normal limits. There is normal alignment. Facet joints are intact at all levels bilaterally. No jumped facets. Mild multilevel degenerative disc disease seen. Visualized paraspinal soft tissues and structures show pleural thickening and/or effusion in the left apex. CT/Spine Cervical without Contras IMPRESSION: There is no definite acute fracture/dislocation. Mild degenerative changes. Widespread metastatic disease. Correlate clinically since no history of neoplasm is provided. Electronically Signed: Edilberto Arevalo MD at 19:42 EDT , Service support ,
--- NOTE | 2019-01-26 18:23 | CT_ITS ---
STUDY: CT BRAIN WITHOUT CONTRAST REASON FOR EXAM: Female, 73 years old. Fall. RADIATION DOSAGE (If Supplied By Facility): CTDIvol = ( 44.99 ) mGy, DLP = ( 824.85 ) mGycm TECHNIQUE: Transaxial CT imaging of the brain was performed without administration of intravenous contrast material. Individualized dose optimization techniques were used for this CT. COMPARISON: 11/19/2018 FINDINGS: Normal soft tissue structures. Normal calvarium. There is mild cerebral atrophy with widening of the extra-axial spaces and ventricular dilatation. There are areas of decreased attenuation within the white matter tracts of the supratentorial brain, consistent with microvascular disease changes. Normal basal ganglia and thalami. Normal brainstem. Normal cerebellum. Small amount of subarachnoid hemorrhage is seen in the sulci of the right occipital lobe, axial image 14 and sagittal image 27. There is a very subtle 1.1 cm mass in the posterior left occipital lobe, surrounded by a small amount of edema. Findings are seen on axial image 18 and sagittal image 45. The appearance suggests a neoplasm. This nodule was present on the previous exam but less prominent. MRI with contrast is recommended. No gross acute infarction. Normal visualized paranasal sinuses. CT/Brain/Head without Contrast IMPRESSION: Small amount of subarachnoid hemorrhage in the right occipital lobe. 1.1 cm probable mass in the left occipital lobe. MRI with contrast is recommended. N.B. : The above information has been verbally conveyed by Edilberto Arevalo MD to Cristopher Feliciano RN, on 01/26/2019 19:41:26 (ET). Electronically Signed: Edilberto Arevalo MD at 19:31 EDT , Service support ,
--- NOTE | 2019-01-26 18:23 | CT_ITS ---
STUDY: CT FACIAL BONES WITHOUT CONTRAST REASON FOR EXAM: Female, 73 years old. Trauma RADIATION DOSAGE (If Supplied By Facility): CTDIvol = ( 29.38 ) mGy, DLP = ( 554.80 ) mGycm TECHNIQUE: The patient was scanned in a multi detector CT scanner. Sagittal and coronal images were reconstructed. Individualized dose optimization techniques were used for this CT. COMPARISON: 11/19/2018. FINDINGS: Mild nonspecific soft tissue swelling of the left face including the periorbital soft tissues. Widespread heterogeneous increased density of the visualized bones consistent with metastatic disease and also present previously. Normal orbital hassan and orbital contents. Normal nasal bones and anterior nasal spine. Normal facial bones. There is no demonstrated fracture. Normal visualized paranasal sinuses. CT/Sinus/Facial Bone IMPRESSION: No acute facial fractures. Diffuse metastatic disease. Electronically Signed: Edilberto Arevalo MD at 19:37 EDT , Service support ,
--- NOTE | 2019-01-26 18:24 | ED.DCSUM_ITS ---
History of Present Illness Chief Complaint: Fall Informant: Patient Onset: Today Narrative: Patient states she was trying to give herself an enema today due to chronic constipation, lost her balance and fell. She struck her head. She denies being on blood thinners and she did not lose consciousness. She does have a history of a traumatic subarachnoid hemorrhage in October of this year. She also has a history of metastatic uterine cancer. 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 Past Medical History - Allergies and Home Meds Allergies/Adverse Reactions: Allergies Iodinated Contrast- Oral and IV Dye [CT] Allergy (Severe, Verified 01/26/19 17:51) Anaphylaxis diphenhydramine [From Benadryl] Adverse Reaction (Severe, Verified 01/26/19 17:51) DIZZY procaine [From Novocain] Adverse Reaction (Severe, Verified 01/26/19 17:51) Other HEART RACES Prior records reviewed: Yes Past Medical History: - - Reviewed Smoking Status: Never smoker Review of Systems General: Denies: Chills, Fever Eyes: Reports: - - Patient states that she can only see light out of the left eye at baseline and it is unchanged currently. Cardiovascular: Denies: Chest pain, Palpitations Respiratory: Denies: Dyspnea, Cough Gastrointestinal: Denies: Abdominal pain, Nausea, Vomiting Musculoskeletal: Reports: Arthralgias Neurological: Denies: Headache Physical Exam Vital Signs/Narrative: Vital Signs Temp Pulse Resp BP Pulse Ox 01/26/19 17:57 97 01/26/19 17:52 98.0 F 121 H 22 H 164/68 H 97 General: Well nourished Head: - - Ecchymosis to the left forehead and left periorbital area. She has large subconjunctival hemorrhage of the left eye. Pupil is normal in shape. Eyes: - - Subconjunctival hemorrhage as noted above ENT: Moist mucous membranes Cardiovascular: Regular rate, Regular rhythm Respiratory: No distress, CTA bilaterally Abdomen: Soft, Nontender Extremities: - - Mild tenderness palpation of the left great toe. Skin: - - Facial ecchymosis as above. Neurological: Alert, Oriented x3 Diagnostic/Tx/Re-eval Abnormal Lab Results 01/26/19 18:10 WBC 12.7 H RBC 3.15 L Hgb 9.2 L Hct 28.5 L MCV 90.5 MCH 29.2 MCHC 32.3 RDW 17.2 H RDW Differential 56.8 H Plt Count 51 L MPV 12.3 H Immature Gran % (Auto) 2.100 H Neut % (Auto) 72.6 H Lymph % (Auto) 13.5 L [place] % (Auto) 9.8 Eos % (Auto) 1.6 Baso % (Auto) 0.4 Absolute Neuts (auto) 9.2 H Absolute Lymphs (auto) 1.71 Total Counted Not Reportable Diff Path Review May foll Clinical Impression(s) from Imaging Studies Brain CT 01/26/19 18:23 IMPRESSION: Small amount of subarachnoid hemorrhage in the right occipital lobe. 1.1 cm probable mass in the left occipital lobe. MRI with contrast is recommended. N.B. : The above information has been verbally conveyed by Edilberto Arevalo MD to Cristopher Feliciano RN, on 01/26/2019 19:41:26 (ET). Electronically Signed: Edilberto Arevalo MD at 19:31 EDT , Service support , Cervical Spine CT 01/26/19 18:23 IMPRESSION: There is no definite acute fracture/dislocation. Mild degenerative changes. Widespread metastatic disease. Correlate clinically since no history of neoplasm is provided. Electronically Signed: Edilberto Arevalo MD at 19:42 EDT , Service support , Facial/Sinus 01/26/19 18:23 IMPRESSION: No acute facial fractures. Diffuse metastatic disease. Electronically Signed: Edilberto Arevalo MD at 19:37 EDT , Service support , Foot X-Ray 01/26/19 19:00 IMPRESSION: Nondisplaced fracture of the second proximal phalanx. Electronically Signed: Edilberto Arevalo MD at 19:24 EDT , Service support , - Medical Decision Making Test results were discussed with patient and family members at bedside. They had previously been advised by oncology that there was nothing further they could do to treat her metastatic cancer and it has been recommended that she go into hospice care. They state that at this point they have not yet gone to hospice care. I explained the CT findings. I offered transfer to a trauma center for further evaluation, or if she wished to just remain comfortable we could admit her for hospice evaluation so she could go home with hospice care. After patient was able to speak with her family they agreed that they just wanted her to be kept comfortable and to be seen by hospice. The second toe fracture was managed by martha taping her toes. No further intervention is needed for this. ED Disposition - Plan for ED Patient: Disposition: Acute Care Hospital [facility] Diagnosis: Traumatic subarachnoid hemorrhage, Subconjunctival hemorrhage of left eye, Toe fracture, Metastatic cancer
[2019-01-26 18:37] LABS: Absolute Lymphocyte Count 1.71 X10^3/ul (0.83-4.51); Absolute Neutrophil Count 9.2 X10^3/uL (2.0-7.7); Basophil# 0.05 X10^3/uL; Basophil% 0.4 % (0-1); Eosinophils% 1.6 % (0-5); Hematocrit 28.5 % (37-47); Hemoglobin 9.2 g/dl (12.0-15.0); Lymphocyte # 1.71 X10^3/ul (4.0); Lymphocyte % 13.5 % (19-41); Mean Corp Hgb Conc 32.3 g/gl (32-36); Mean Corpuscular Hgb 29.2 pg (27.0-32.0); Mean Corpuscular Volume 90.5 fL (81-99); Mean Platelet Vol. 12.3 fl (6.2-12.0); Monocyte# 1.25 X10^3/uL; Monocyte% 9.8 % (0-10); Neutrophil # 9.22 X10^3/uL (2.7-7.7); Neutrophil % 72.6 % (47-70); Platelet Count 51 K/mm3 (150-450); RBC Distribution Width CV 17.2 % (11.6-14.6); RBC Distribution Width SD 56.8 fl (35.1-43.9); Red Blood Count 3.15 M/mm3 (4.2-5.4); White Blood Count 12.7 K/mm3 (4.4-11.0)
[2019-01-26 18:40] LABS: Differential Indicated SCAN CRITERIA MET; POSITIVE COUNT YES; POSITIVE DIFFERENTIAL NO; POSITIVE MORPHOLOGY YES
--- NOTE | 2019-01-26 19:00 | RAD_ITS ---
STUDY: X-RAY - LEFT FOOT CLINICAL: Female, 73 years old. Fall. Pain. TECHNIQUE: 3 view(s) of the foot. COMPARISON: None. FINDINGS: Severe demineralization. Nondisplaced fracture of the second proximal phalanx. No other fractures are seen. No dislocations. Degenerative changes of the first metatarsophalangeal joint. Degenerative changes of the midfoot. Moderate plantar spur. Prominent dorsal soft tissue swelling. RAD/Foot min 3 Views IMPRESSION: Nondisplaced fracture of the second proximal phalanx. Electronically Signed: Edilberto Arevalo MD at 19:24 EDT , Service support ,
--- NOTE | 2019-01-26 20:30 | ED.RN ---
PT REFUSES ZOFRAN AT THIS TIME.
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
--- NOTE | 2019-01-26 21:46 | NURSING ---
GREAT AND SECOND TOES WASHED AND TAPED TOGETHER PER MDS ORDERS. SKIN INTACT. TOENAILS THICK AND YELLOW.
[2019-01-26] MEDS: Furosemide 40 MG Tablet PO (23:42)
[2019-01-27 05:05] VITALS: BP 112/51; PULSE 101; RESP 20; TEMP 36.7; O2SAT 95
[2019-01-27 09:12] VITALS: O2SAT 93
[2019-01-27 09:35] VITALS: BP 119/66; PULSE 105; RESP 16; TEMP 36.8; O2SAT 98
[2019-01-27] MEDS: Multivitamin (Healthy Eyes) Capsule 2 CAP PO (09:37)
[2019-01-27] MEDS: Vitamin B Comp W-C Capsule 1 CAP PO (09:37)
[2019-01-27] MEDS: Senna/Docusate Sodium 1 Tablet PO (09:38)
[2019-01-27 09:42] VITALS: PULSE 105
[2019-01-27 10:00] VITALS: PULSE 105
--- NOTE | 2019-01-27 11:25 | NURSING ---
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
--- NOTE | 2019-01-27 11:45 | NURSING ---
Reviewed and agree with Katie Lagunas LPN's assessment.
--- NOTE | 2019-01-27 12:28 | CASEMGMT ---
Pt is going to the inpt hospice unit, to be picked up at 1:30pm. MAMTA Santos
--- NOTE | 2019-01-27 12:40 | DCINST_ITS ---
- Discharge Diagnoses Current Active Problems: Current Active and Chronic Problems (Last Reviewed 01/27/19 @ 04:23 by Edgar Mckeon MD) Traumatic subarachnoid hemorrhage (Acute) Subconjunctival hemorrhage of left eye (Acute) Toe fracture (Acute) Metastatic cancer (Acute) Subarachnoid hemorrhage (Acute) You will use the following diet at home:: No restrictions Discharge Activity: No Restrictions Allergies/Adverse Reactions: Allergies Iodinated Contrast- Oral and IV Dye [CT] Allergy (Severe, Verified 01/26/19 17:51) Anaphylaxis diphenhydramine [From Benadryl] Adverse Reaction (Severe, Verified 01/26/19 17:51) DIZZY procaine [From Novocain] Adverse Reaction (Severe, Verified 01/26/19 17:51) Other HEART RACES Medications to take at Discharge Lidocaine/Prilocaine [Lidocaine-Prilocaine Cream] 30 gm TP DAILY PRN PRN #1 cream..g. 04/16/17 Docusate Sodium [Dulcoease] 100 mg PO PRN PRN 12/11/18 Metoprolol Tartrate [Lopressor (beta azam)] 25 mg PO BID 12/11/18 Senna/Docusate Sodium [Senokot-S] 1 tablet PO BID tablet 01/27/19 Primary Care Physician: Dianne Wilson MD [Primary Care Provider] - Test Results: Test results from this visit will be discussed in further detail at your follow- up appointment, if applicable. Proposed Discharge Date: 01/27/19
--- NOTE | 2019-01-27 12:41 | DS.PCM_ITS ---
Discharge Date and Diagnosis - Problem List Patient Problems: Active and Suspected Problems (Last Reviewed 01/27/19 @ 04:23 by Edgar Mckeon MD) Traumatic subarachnoid hemorrhage (Acute) Subconjunctival hemorrhage of left eye (Acute) Toe fracture (Acute) Metastatic cancer (Acute) Subarachnoid hemorrhage (Acute) Date of Admission: 01/26/19 Date of Discharge: 01/27/19 - Primary Discharge Diagnosis Active and Suspected Problems (Last Reviewed 01/27/19 @ 04:23 by Edgar Mckeon MD) Traumatic subarachnoid hemorrhage (Acute) Subconjunctival hemorrhage of left eye (Acute) Toe fracture (Acute) Metastatic cancer (Acute) Subarachnoid hemorrhage (Acute) - Secondary Discharge Diagnosis Chronic Problems (Last Reviewed 01/27/19 @ 04:23 by Edgar Mckeon MD) Endometrium cancer (Chronic) Bone metastases (Chronic) Cancer involving bladder by non-direct metastasis from uterine cervix (Chronic) Lung metastases (Chronic) Metastasis to lymph nodes (Chronic) Lung nodule (Chronic) Atherosclerosis of coronary artery of [place] heart without angina pectoris (Chronic) Essential (primary) hypertension (Chronic) Bladder cancer (Chronic) History of uterine cancer (Chronic) Metastasis from cancer of uterus (Chronic) Hospital Course and Treatment Imaging Results: Clinical Impression(s) from Imaging Studies Brain CT 01/26/19 18:23 IMPRESSION: Small amount of subarachnoid hemorrhage in the right occipital lobe. 1.1 cm probable mass in the left occipital lobe. MRI with contrast is recommended. N.B. : The above information has been verbally conveyed by Edilberto Arevalo MD to Cristopher Feliciano RN, on 01/26/2019 19:41:26 (ET). Electronically Signed: Edilberto Arevalo MD at 19:31 EDT , Service support , Cervical Spine CT 01/26/19 18:23 IMPRESSION: There is no definite acute fracture/dislocation. Mild degenerative changes. Widespread metastatic disease. Correlate clinically since no history of neoplasm is provided. Electronically Signed: Edilberto Arevalo MD at 19:42 EDT , Service support , Facial/Sinus 01/26/19 18:23 IMPRESSION: No acute facial fractures. Diffuse metastatic disease. Electronically Signed: Edilberto Arevalo MD at 19:37 EDT , Service support , Foot X-Ray 01/26/19 19:00 IMPRESSION: Nondisplaced fracture of the second proximal phalanx. Electronically Signed: Edilberto Arevalo MD at 19:24 EDT , Service support , Operations: None, - Procedures: None Summary of Care Provided: The patient is a 73 year old F who fell. Patient landed on her left side and injured her left thigh, her toes and her left foot. Patient also had injury to her left eye with chemosis and had a CT of her head that showed a subarachnoid hemorrhage in the right occipital lobe. Patient's had stated that she did not want to have aggressive therapy and so the patient was admitted here despite having a subarachnoid hemorrhage and for the patient be seen by hospice. Patient was seen by hospice today and the plan for the patient to be discharged with hospice. I have taken liberty to de-escalate medications which will be continued at hospice care center and then further adjusted by the hospice care team. Despite the patient's injuries, patient is awake and conversant. [] Patient Problems: Active and Suspected Problems (Last Reviewed 01/27/19 @ 04:23 by Edgar leslie MD) Traumatic subarachnoid hemorrhage (Acute) Subconjunctival hemorrhage of left eye (Acute) Toe fracture (Acute) Metastatic cancer (Acute) Subarachnoid hemorrhage (Acute) - Physical Exam General: Alert, Cooperative HEENT: - - Significant hematoma involving the eyelids, chemosis of the conjunctiva of the lower left eye. Lungs: Clear to auscultation, Normal air movement, No rhonchi, No wheeze Cardiovascular: Regular rate, Regular Rhythm, Normal S1, Normal S2, No murmurs Abdomen: Bowel Sounds Present, Soft, Non Tender, Non-Distended, No Hepato- splenomegaly Extremities: No edema, No Calf Tenderness Psych/Mental Status: Normal Affect, Appropriate Vital Signs Temp Pulse Resp BP Pulse Ox 36.8 C 105 H 16 119/66 98 01/27/19 09:35 01/27/19 10:00 01/27/19 09:35 01/27/19 09:35 01/27/19 09:35 Oxygen Flow Rate (L/min) 3.5 Oxygen Delivery Method Nasal Cannula Weight: 66.7 kg Body Mass Index (BMI) 28.7 Intake and Output for Last 24 Hours 01/25/19 01/26/19 01/27/19 23:59 23:59 23:59 Intake Total 240 / 240 360 / 360 Balance 240 / 240 360 / 360 Laboratory Tests Past 24 Hrs 01/26/19 18:10 WBC 12.7 H RBC 3.15 L Hgb 9.2 L Hct 28.5 L MCV 90.5 MCH 29.2 MCHC 32.3 RDW 17.2 H RDW Differential 56.8 H Plt Count 51 L MPV 12.3 H Immature Gran % (Auto) 2.100 H Neut % (Auto) 72.6 H Lymph % (Auto) 13.5 L [place] % (Auto) 9.8 Eos % (Auto) 1.6 Baso % (Auto) 0.4 Absolute Neuts (auto) 9.2 H Absolute Lymphs (auto) 1.71 Total Counted Not Reportable Diff Path Review November Discharge Diet: No Restrictions Discharge Activity: No Restrictions Home Medications: Medications to take at Discharge Lidocaine/Prilocaine [Lidocaine-Prilocaine Cream] 30 gm TP DAILY PRN PRN #1 cream..g. 04/16/17 Docusate Sodium [Dulcoease] 100 mg PO PRN PRN 12/11/18 Metoprolol Tartrate [Lopressor (beta azam)] 25 mg PO BID 12/11/18 Senna/Docusate Sodium [Senokot-S] 1 tablet PO BID tablet 01/27/19 Primary Care Physician: Dianne Wilson MD [Primary Care Provider] - Disposition: Hospice Medical Facility Minutes spent on discharge:: 28 Patient Condition:: Poor Medical Necessity - Tobacco Use Smoking Status: Never smoker Meaningful Use Info Meaningful Use Diagnoses (Choose all that apply): None applicable Code Visit Inpatient E&M: 96714 Disch Hosp
[2019-01-28 10:18] LABS: Pathologist Review Reviewed
== END 2019-01-27 14:03 | disposition hospice, inpatient (51) ==
LOC: ED 19:25 → PCU 22:00
PROVIDERS: Admitting Provider Hospitalist; Emergency Provider Emergency Medicine; Family Provider Internal Medicine; PCP Internal Medicine; Referring Provider Hospitalist
DX: S06.6X0A Traumatic subarachnoid hemorrhage without loss of consciousness, initial encounter (principal); W19.XXXA Unspecified fall, initial encounter; Y93.89 Activity, other specified; Y92.9 Unspecified place or not applicable; I25.2 Old myocardial infarction; H11.32 Conjunctival hemorrhage, left eye; S92.515A Nondisplaced fracture of proximal phalanx of left lesser toe(s), initial encounter for closed fracture; C54.1 Malignant neoplasm of endometrium; C77.9 Secondary and unspecified malignant neoplasm of lymph node, unspecified; C78.00 Secondary malignant neoplasm of unspecified lung; C79.51 Secondary malignant neoplasm of bone; C79.11 Secondary malignant neoplasm of bladder; I25.10 Atherosclerotic heart disease of native coronary artery without angina pectoris; I50.9 Heart failure, unspecified; K59.09 Other constipation; Z79.899 Other long term (current) drug therapy
CPT/HCPCS: 36591; 70450; 70486; 72125; 73630; 85025; 97802; 99218; 99285; A4216; G0378; J2405